=== PATIENT | male | born 1940 | race Caucasian/White ===

== ENCOUNTER 2018-04-19 10:30 | Outpatient (RCR) | payer MEDICARE, OTHER, SELFPAY ==
--- NOTE | 2018-03-22 10:48 | PTTR_ITS ---
DATE: 03/22/18 SUBJECTIVE: Cecilio states that he had an incident a few days ago where he squatted down to push brush out of the road in front of him, and fell forward onto his hands and knees. He states that he had a difficult time getting back up into a standing position, but was able to eventually do so, which he feels is a great improvement compared to several months ago when he first started PT. OBJECTIVE: Manual therapy: ([id number]). With patient in supine, performed patellar glides, superiorly and medially, with noted restriction. Also briefly mobilized knee into extension. Performed hamstring and ITB stretching to R LE, and traction via leg pulls. Patient then performed side-lying hip extension, side-lying knee flexion, and side-lying hip abduction, 2x10 for each, with manual cuing to facilitate appropriate muscle recruitment. Therapeutic procedures ([id number]). * [X] See flow sheet: Patient then completed a LE strengthening and general conditioning program, as per flow sheet. Patient tolerated a progression in his program today. Modifications made to reps and weights are noted on flow sheet. Vitals were taken and recorded on flow sheet. * [X] Provided skilled manual cues to facilitate proper muscle recruitment and/or movement pattern * [X] Other: Patient ended with UBE cycling and stationary biking x10 minutes, each, via [facility]ness Program. Direct treatment time: 60 minutes Total treatment time: 80 minutes
--- NOTE | 2018-03-26 14:31 | PTTR_ITS ---
DATE: 03/26/18 SUBJECTIVE: I am doing okay and slowly improving I believe. OBJECTIVE: A KX modifier is applied to the charge. Manual therapy: ([id number]): Patient was placed in supine and mobilized with gentle oscillations of long axis traction and then guided through over pressure into knee extension. He was mobilized through the patella with medial and superior glides and then stretched through the hamstrings with active isolated stretching technique. Patient mobilized with stretch of the knee into flexion with use of subtle anterior glide of the tibia on a fixed femur. He was mobilized while in the sidelying position with knee flexion coordinated with hip extension. Patient then seen by Adelaide Alaniz PTA for additional exercises for strength and endurance see her note for details. 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 Direct treatment time: 25 minutes of direct patient care.
--- NOTE | 2018-03-26 14:57 | PTTR_ITS ---
DATE: 03/26/18 OBJECTIVE: Co Treatment with PT Kalin Tucker Therapeutic procedures ([id number]). KX Mod * X Provided skilled instruction in proper exercise performance: Pt completed UE strengthening, scapular stabilization ther ex, LE strengthening, wobble board, functional sit to stands with the maroon t-band, and cardio as per flow sheet. Pt's vitals were taken please see flow sheet for specifics. Direct treatment time: 30 Total treatment time: 45
--- NOTE | 2018-03-29 12:48 | PTTR_ITS ---
DATE: 03/29/18 SUBJECTIVE: Pt states that he is still noticing some slight improvement week to week with both his endurance and his knee. OBJECTIVE: KX modifier applied to todays charge Manual therapy: ([id number]).Pt placed in the supine position receiving long axis traction through the RLE. He is then placed in 20-30 degrees of knee flexion while gently receiving isolated traction through the R knee and a mild anterior tibial draw. Pt mobilized with STM through the distal quad and patellar medial and superior glides. He is stretched through the hamstrings with active isolated stretching technique and lightly mobilized in the side lying position with hip extension coordinated with knee flexion, which pt tolerated fairly well. He is then seen by Jaki Moran PTA for additional strengthening exercises. See her note for details. Skilled PT services are still required for this pt to address his functional deficits through the knee, as well as endurance issues that are preventing him from returning to premorbid ability with normalized ADLs. Direct treatment time: 30 min Total treatment time: 30 min KX applied to all charges SAHARA/fw
--- NOTE | 2018-03-29 15:15 | PTTR_ITS ---
DATE: 03/29/18 SUBJECTIVE: This was a co tx with primary therapist Kalin Tucker DPT please see his note for specifics. OBJECTIVE: KX modifier applied to all charges. Therapeutic procedures ([id number]). Pt completed a therapeutic exercise program for LE strengthening and conditioning per flow sheet. Pt was able to tolerate a slight progression in his program today. Modifications made to repetitions and weights are noted on flow sheet. Pt continues to require skilled cueing for postural correction as well as to avoid compensatory movement patterns. Vital signs were taken and recorded on the flow sheet. Pt completes the remainder of his exercise program via wellness program under vocational trainer supervision. Direct treatment time: 30 minutes Total treatment time: 50 minutes
--- NOTE | 2018-04-02 08:28 | PTTR_ITS ---
DATE: 04/02/18 SUBJECTIVE: Pt states that he is still noticing some continuous improvement. OBJECTIVE: Manual therapy: ([id number]). KX modifier applied to all charges. Pt placed in the supine position where he is mobilized with long axis traction through the (R) LE and he is mobilized into TKE after tibial femoral decompression was completed through the traction maneuver. Patella, superior and medial glides are performed and then pt mobilized with hamstring stretching via active isolated stretching technique and in the sidelying position mobilized with hip extension coordinated with knee flexion to mobilize the deep hip flexor and rectus femoris. He is then positioned back into supine and placed into 20-30* of knee flexion, Mobilized with IASTM technique to the lateral tibio femoral joint and patellar tendon as well the lateral patella femoral joint. He tolerates tx well. He is then seen by Jaki Moran PTA for additional strengthening exercises see her note for details. Skilled PT services are still required for this pt to address his functional limitations due to strength and cardiovascular deficits. He is also limited by knee ROM deficits of the knee and this being post op TKR at this time. Direct treatment time: 30 minutes Total treatment time: 30 minutes
--- NOTE | 2018-04-05 11:13 | PTTR_ITS ---
DATE: 04/05/18 SUBJECTIVE: I am doing pretty well for the most part, still hopefully making some improvement. OBJECTIVE: KX applied to all codes X Manual therapy: ([id number]): Patient was placed in supine where he received long axis traction through the right lower extremity. He was stretched through the upper and lower portions of the hamstrings with active isolated stretching technique. Patellar medial and superior glides were performed with good tolerance and patient mobilized through the lateral retinaculum and LCL of the right knee with light cross grain massage. Patient placed in sidelying where he was mobilized with hip extension coordinated with knee flexion for stretch of the quadriceps. He is then guided through extension of the knee with over pressure and good tolerance. Then seen by SL DOOR CORE ASSEMBLER for additional strengthening exercises see her note for details. Skilled physical therapy services are still medically required in order to achieve patients premorbid and beyond functional mobility by addressing his knee mobility issues, and cardiovascular endurance and strength deficits. Direct treatment time: 30 minutes of direct patient care.
--- NOTE | 2018-04-05 11:56 | PTTR_ITS ---
DATE: 04/05/18 OBJECTIVE: Co-treatment with primary therapist, Kalin Tucker DPT. Please see his note for specifics. Therapeutic procedures ([id number]). * [X] See flow sheet: Patient completed a general conditioning and global strengthening program, as per flow sheet. Patient tolerated a slight progression in his program today, modifications made to reps are noted on flow sheet. Vitals taken and recorded on flow sheet. * [X] Provided skilled manual cues to facilitate proper muscle recruitment and/or movement pattern * [X] Other: Patient ends with UBE cycling and stationary biking via Wellness program. Direct treatment time: 30 minutes Total treatment time: 50 minutes
--- NOTE | 2018-04-11 11:24 | PTTR_ITS ---
DATE: 04/11/18 SUBJECTIVE: Cecilio continues to express frustration in how slow he feels his progress is toward regaining strength and stamina. [X] KX modifier applied to all charges. OBJECTIVE: Manual therapy: ([id number]). With patient in supine, perform traction via leg- pulls followed by patellar mobs in all planes. The perform prolonged hamstring stretching in supine, and prolonged quad stretching left side-lying. Therapeutic procedures ([id number]). * [] See flow sheet: Patient completed a LE strengthening and general conditioning program, as per flow sheet. Modified several exercises to challenge right knee stability and LE strength, which was tolerated with some muscle fatigue. Please see flow sheet for modifications made. Vitals were taken and recorded on flow sheet pre and post exercise. Patient ended with UBE cycling and stationary biking x10 minutes each, via [facility]. * [] Provided skilled instruction in proper exercise performance. * [] Provided skilled manual cues to facilitate proper muscle recruitment and /or movement pattern. Direct treatment time: 45 minutes Total treatment time: 65 minutes
--- NOTE | 2018-04-13 13:06 | PTTR_ITS ---
DATE: 04/13/18 OBJECTIVE: Co-treatment with primary therapist, Kalin Tucker DPT. Please see his note for specifics. KX applied to all codes [X] Therapeutic procedures ([id number]). * [X] See flow sheet: Patient completed a LE strengthening and general conditioning program, as per flow sheet. Added SLS dynamic balance exercise today, with good tolerance. Patient tolerated a slight progression in his program today, modifications made are noted on flow sheet. Vitals taken and recorded on flow sheet. Patient ends with UBE cycling and stationary biking via [facility]. * [X] Provided skilled instruction in proper exercise performance. * [X] Provided skilled manual cues to facilitate proper muscle recruitment and/or movement pattern. Direct treatment time: 35 minutes Total treatment time: 50 minutes
--- NOTE | 2018-04-13 13:17 | PTTR_ITS ---
DATE: 04/13/18 SUBJECTIVE: I am doing pretty well for the most part. OBJECTIVE: A KX modifier is applied to the charge. Manual therapy: ([id number]): Patient was placed in supine and mobilized with gentle traction via long axis through the right lower extremity. After decompression he was mobilized with end of range knee extension with tolerable end point limit. The patella was mobilized with medial and superior glides to improve lateral retinaculum extensibility and trochlear tracking. The hamstrings are still significantly limiting in extensibility but he is able to tolerate a stretch with knee extended to 45 degrees of hip flexion. The proximal hamstrings were mobilized with good tolerance and in sidelying he is mobilized with hip extension coordinated with knee flexion. Patient then seen by SL WAREHOUSE UNLOADER for additional exercises see note for details. Skilled Physical therapy services are still required to address his functional mobility deficits through the knee and with his cardio vascular endurance that are limiting a return to even baseline ability. He is making gradual progress with continued effort. Direct treatment time: 30 minutes of direct patient care.
--- NOTE | 2018-04-16 11:09 | PTTR_ITS ---
DATE: 04/16/18 OBJECTIVE: This was a co tx with PT Kalin Tucker please refer to his note for specifics. KX modifier applied to all charges. Therapeutic procedures ([id number]). Pt was seen by me for completion of a therapeutic exercise program consisting of UE strengthening, scapular stabilization also working on balance, light proprioceptive activities, SLS activities and cardiovascular exercise on the UBE and treadmill and Nustep. Pt' s vitals were taken with the wellness as well as the treadmill and bicycle. Direct treatment time: 30 minutes Total treatment time: 30 minutes
--- NOTE | 2018-04-16 11:57 | PTTR_ITS ---
DATE: 04/16/18 SUBJECTIVE: Pt states that he is doing ok for the most part. Still making gradual improvement. OBJECTIVE: Manual therapy: ([id number]).KX modifier applied to all charges. Pt placed in the supine position and gently mobilized with long axis traction through the LE. He is then mobilized with extension through the knee to end range with oscillations, and then patellar medial and superior glides to improve tracking in the lateral retinaculum extensibility. Pt then mobilized through the hamstrings with active isolated stretching technique and through the rectus femoris with low load long duration holds. He is mobilized into end range flexion and light STM through the proximal and distal quadricep. Skilled PT services are still required for this pt in order to address his primary deficits of strength and endurance and mobility concerns leading to decreased functional ambulation quality. Pt was then seen by Adelaide Alaniz PTA for additional strengthening exercises.See her note for details. Direct treatment time: 30 min Total treatment time: 30 min SAHARA/anselmo
--- NOTE | 2018-04-19 07:47 | PTTR_ITS ---
DATE: 04/19/18 SUBJECTIVE: Pt states that he is noticing some improvement from time to time; however, in the last couple days he hasn't really made that pure of an assessment because he has not been able to get out due to the weather. OBJECTIVE: Manual therapy: ([id number]).Pt placed in the supine position receiving gentle traction with long axis through the RLE, progressing to further decompression. He is then mobilized with knee extension and patellar, medial and superior glides. Pt mobilized through the hamstring, both proximal and distal fibers with low load long duration holds. In the side lying position mobilized with hip extension coordinated with knee flexion and pt also mobilized with end range knee flexion within his level of tolerance associated with a mild anterior glide of the tibia. He is then seen by Jaki Moran PTA for additional strengthening activities. See her note for details. Skilled therapy services are still medically required for this pt to address his strength, stability and pain concerns resulting from TKR and termination clerk hospital admission earlier on in his recovery. He still has some endurance and mobility concern that are gradually improving through continued treatment. Direct treatment time: 30 min Total treatment time: 30 min SAHARA/anselmo
--- NOTE | 2018-04-19 11:56 | PTTR_ITS ---
DATE: 04/19/18 OBJECTIVE: Co-treatment with primary therapist, Kalin Tucker DPT. Please see his note for specifics. [X] KX modifier applied to all charges. Therapeutic procedures ([id number]). * [X] See flow sheet: Patient completed a general conditioning and global strengthening program, as per flow sheet. Patient was able to tolerate a progression in his program today, including increased difficulty with proprioceptive balance activities. Modifications made to program are noted on flow sheet. Vitals were taken pre and post-exercise and recorded on flow sheet. Patient completed the remainder of his ther ex program via [facility]. * [X] Provided skilled manual cues to facilitate proper muscle recruitment and/or movement pattern. Direct treatment time: 35 minutes Total treatment time: 55 minutes
== END 2018-04-20 23:59 | disposition home or self-care (01) ==
LOC: PT 10:30
PROVIDERS: PCP Internal Medicine; Referring Provider Physician Assistant Medical; Visit Provider Physician Assistant Medical
DX: Z47.1 Aftercare following joint replacement surgery (principal); Z96.651 Presence of right artificial knee joint
CPT/HCPCS: 97110; 97140

== ENCOUNTER → 2018-06-29 10:11 | Outpatient (BNVA) | payer MEDICARE, SELFPAY | PROVIDERS: PCP Family Medicine; Visit Provider Internal Medicine Cardiovascular Disease | DX: I48.0 Paroxysmal atrial fibrillation (principal); I50.30 Unspecified diastolic (congestive) heart failure; I11.0 Hypertensive heart disease with heart failure; Z95.2 Presence of prosthetic heart valve; E78.5 Hyperlipidemia, unspecified; I35.0 Nonrheumatic aortic (valve) stenosis | CPT/HCPCS: 99214 ==

== ENCOUNTER 2018-08-14 12:36 | Emergency (ER) | payer MEDICARE, OTHER, SELFPAY ==
[2018-08-14 12:39] VITALS: BP 144/70; PULSE 72; RESP 16; TEMP 36.6; O2SAT 95
--- NOTE | 2018-08-14 13:05 | W.ED.GENAD ---
Discharge Plan Disposition Patient Disposition: HOME Condition: Stable Discharge Details Chief Complaint: EyeProblem Clinical Impression: Blurred vision, left eye Primary Care Provider: Robert Baltazar ED Provider: Berry Rios Home Meds and New Rx's Prescriptions: Continued amoxicillin 500 mg tablet 1,000 mg PO ONCE PRNRF: 0 metoprolol succinate 100 mg tablet extended release 24 hr 100 mg PO DAILY 60 Days Qty: 60 RF: 6 multivitamin [One Daily] 1 EACH tablet 2 ea PO DAILY RF: 0 aspirin [Aspir-81] 81 MG tablet,delayed release (DR/EC) 81 mg PO DAILY RF: 0 ascorbic acid (vitamin C) 500 MG tablet 2 tab PO DAILY RF: 0 Eliquis 5 MG tablet 5 mg PO BID Qty: 180 RF: 3 diltiazem HCl 360 MG capsule,extended release 24 hr 360 mg PO DAILY Qty: 90 RF: 3 atorvastatin 40 MG tablet 40 mg PO HS Qty: 90 RF: 3 torsemide [Demadex] 20 MG tablet 20 mg PO ONCE 30 Days Qty: 60 RF: 5 tamsulosin 0.4 mg capsule 0.8 mg PO DAILY 90 Days Qty: 180 RF: 3 spironolactone [Aldactone] 25 mg tablet 25 mg PO BID RF: 0 Discharge Instructions Additional Instructions: Based on your exam there is no evidence of retinal detachment at this time. I discussed with your correctional program specialist office who is going to reach out to you tomorrow for an appointment to bee seen as soon as possible if you have worsening vision changes, weakness or severe pain return to the emergency department Medical Decision Making 78 yo male with hx of afib on eliquis comes in with chief complaint of haziness and graying of the lower half of the left eye. Denies pain, fevers, chills. 20/25 vision in both eyes on my exam and denies any pain. EOMI with no periorbital swelling, normal conjunctiva. Has no iritis on exam and on bedside u/s sseems to have vitreous hemorrhage, no evidence of retinal attachment on exam or CRAO or CRVO on retinal exam. Will consult with opthamology he sees across from the street spoke with Dr. Yuen from optometry who is going to arrange for f/u appt tomorrow. Pt advised to call their office if any issues and he will be contacted by his correctional program specialist. Differential Diagnosis retinal detachment, vitreous hemorrhage, floaters HPI General Mode of arrival: ambulatory. Date/Time Provider Initiated Documentation: 08/14/18 12:36. Limitations to Documentation: no limitations. Information obtained by: patient. History of Present Illness 78 year old M presents to the emergency department with the chief complaint of left eye burring, described as moderate, and is localized to the eyes. Patient reports no radiation. Patient started experiencing this hour(s) (2) and it has been constant. No relieving factors improve symptom(s), No exacerbating factors reported . Patient notes no other symptoms.. Related Data Home Medications Medication Instructions Recorded Confirmed ascorbic acid (vitamin C) 2 tab PO DAILY 11/26/12 08/14/18 aspirin [Aspir-81] 81 mg PO DAILY tab 11/26/12 08/14/18 multivitamin [One Daily] 2 ea PO DAILY 11/26/12 08/14/18 Eliquis 5 mg PO BID #180 tab 11/16/17 08/14/18 diltiazem HCl 360 mg PO DAILY #90 tab-cap 11/16/17 08/14/18 atorvastatin 40 mg PO HS #90 tab 11/27/17 08/14/18 torsemide [Demadex] 20 mg PO ONCE 30 Days #60 tab 12/25/17 08/14/18 tamsulosin 0.4 mg capsule 0.8 mg PO DAILY 90 Days #180 05/21/18 08/14/18 tab-cap amoxicillin 500 mg tablet 1,000 mg PO ONCE PRN tab 06/29/18 08/14/18 metoprolol succinate ER 100 mg 100 mg PO DAILY 60 Days #60 tab-cap 06/29/18 08/14/18 tablet,extended release 24 hr spironolactone 25 mg tablet 25 mg PO BID 08/03/18 08/14/18 Previous Rx's Medication Instructions Recorded diltiazem HCl 360 mg PO DAILY #90 tab-cap 11/16/17 atorvastatin 40 mg PO HS #90 tab 11/27/17 torsemide [Demadex] 20 mg PO ONCE 30 Days #60 tab 12/25/17 tamsulosin 0.4 mg capsule 0.8 mg PO DAILY 90 Days #180 05/21/18 tab-cap metoprolol succinate ER 100 mg 100 mg PO DAILY 60 Days #60 tab-cap 06/29/18 tablet,extended release 24 hr Allergies Allergy/AdvReac Type Severity Reaction Status Date / Time No Known Allergies Allergy Unverified 08/14/18 12:44 General Stated Complaint: EyeProblem JANINE: 3 Review of Systems Review of Systems All systems reviewed & are unremarkable except as noted in HPI and below Constitutional Denies chills, Denies fever(s) and Denies weakness ENT Denies change in voice Cardiovascular Denies chest pain and Denies dyspnea Respiratory Denies dyspnea Gastrointestinal Denies abdominal pain, Denies nausea and Denies vomiting Genitourinary Denies dysuria Musculoskeletal Denies joint swelling Integumentary/Breasts Denies rash Neurologic Denies weakness Psychiatric Denies depression Endocrine Denies cold intolerance and Denies heat intolerance Allergic/Immunologic Denies urticaria [facility] Surgical History Extraction of cataract (07/28/14) 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) cervical diskectomy (07/01/15) Social History Smoking/Tobacco Use Status: Never Exam Const General: no acute distress Orientation: alert HENMT Head: normal to inspection Ears: external ears normal General nose exam: external nose normal Mouth: moist mucous membranes Eyes General: appearance normal, both eyes and all related structures Neck Neck: normal visual inspection Resp Effort & Inspection: normal respiratory effort and able to speak in complete sentences Cardio Rate: regular rate Skin General skin exam: no rashes or lesions noted Neuro General: alert and oriented x3 Extrem General: normal to inspection Psych Mental Status: mental status grossly normal Course Vital Signs Temperature 36.6 C 08/14/18 12:39 Pulse 72 08/14/18 12:39 Respiratory Rate 16 08/14/18 12:39 Blood Pressure 144/70 H 08/14/18 12:39 Pulse Oximetry 95 08/14/18 12:39 Temperature 36.6 C 08/14/18 12:39 Temperature Source Skin 08/14/18 12:39 Pulse 72 08/14/18 12:39 Respiratory Rate 16 08/14/18 12:39 Respiratory Effort Non-Labored 08/14/18 12:42 Blood Pressure 144/70 H 08/14/18 12:39 Pulse Oximetry 95 08/14/18 12:39 Pain Level 0 08/14/18 12:39
--- NOTE | 2018-08-14 13:10 | ED.GENADUL_ITS ---
Discharge Plan Disposition Patient Disposition: HOME Condition: Stable Discharge Details Chief Complaint: EyeProblem Clinical Impression: Blurred vision, left eye Primary Care Provider: Robert Baltazar ED Provider: Berry Rios Home Meds and New Rx's Prescriptions: Continued amoxicillin 500 mg tablet 1,000 mg PO ONCE PRNRF: 0 metoprolol succinate 100 mg tablet extended release 24 hr 100 mg PO DAILY 60 Days Qty: 60 RF: 6 multivitamin [One Daily] 1 EACH tablet 2 ea PO DAILY RF: 0 aspirin [Aspir-81] 81 MG tablet,delayed release (DR/EC) 81 mg PO DAILY RF: 0 ascorbic acid (vitamin C) 500 MG tablet 2 tab PO DAILY RF: 0 Eliquis 5 MG tablet 5 mg PO BID Qty: 180 RF: 3 diltiazem HCl 360 MG capsule,extended release 24 hr 360 mg PO DAILY Qty: 90 RF: 3 atorvastatin 40 MG tablet 40 mg PO HS Qty: 90 RF: 3 torsemide [Demadex] 20 MG tablet 20 mg PO ONCE 30 Days Qty: 60 RF: 5 tamsulosin 0.4 mg capsule 0.8 mg PO DAILY 90 Days Qty: 180 RF: 3 spironolactone [Aldactone] 25 mg tablet 25 mg PO BID RF: 0 Discharge Instructions Additional Instructions: Based on your exam there is no evidence of retinal detachment at this time. I discussed with your field applications specialist office who is going to reach out to you tomorrow for an appointment to bee seen as soon as possible if you have worsening vision changes, weakness or severe pain return to the emergency department Medical Decision Making 78 yo male with hx of afib on eliquis comes in with chief complaint of haziness and graying of the lower half of the left eye. Denies pain, fevers, chills. 20/25 vision in both eyes on my exam and denies any pain. EOMI with no periorbital swelling, normal conjunctiva. Has no iritis on exam and on bedside u/s sseems to have vitreous hemorrhage, no evidence of retinal attachment on exam or CRAO or CRVO on retinal exam. Will consult with opthamology he sees across from the street spoke with Dr. Yuen from optometry who is going to arrange for f/u appt tomorrow. Pt advised to call their office if any issues and he will be contacted by his field applications specialist. Differential Diagnosis retinal detachment, vitreous hemorrhage, floaters HPI General Mode of arrival: ambulatory . Date/Time Provider Initiated Documentation: 08/14/18 12:36 . Limitations to Documentation: no limitations . Information obtained by: patient . History of Present Illness 78 year old M presents to the emergency department with the chief complaint of left eye burring, described as moderate, and is localized to the eyes. Patient reports no radiation. Patient started experiencing this hour(s) (2) and it has been constant. No relieving factors improve symptom(s), No exacerbating factors reported . Patient notes no other symptoms.. Related Data Home Medications Medication Instructions Recorded Confirmed ascorbic acid (vitamin C) 2 tab PO DAILY 11/26/12 08/14/18 aspirin [Aspir-81] 81 mg PO DAILY tab 11/26/12 08/14/18 multivitamin [One Daily] 2 ea PO DAILY 11/26/12 08/14/18 Eliquis 5 mg PO BID #180 tab 11/16/17 08/14/18 diltiazem HCl 360 mg PO DAILY #90 tab-cap 11/16/17 08/14/18 atorvastatin 40 mg PO HS #90 tab 11/27/17 08/14/18 torsemide [Demadex] 20 mg PO ONCE 30 Days #60 tab 12/25/17 08/14/18 tamsulosin 0.4 mg capsule 0.8 mg PO DAILY 90 Days #180 05/21/18 08/14/18 tab-cap amoxicillin 500 mg tablet 1,000 mg PO ONCE PRN tab 06/29/18 08/14/18 metoprolol succinate ER 100 mg 100 mg PO DAILY 60 Days #60 tab-cap 06/29/18 08/14/18 tablet,extended release 24 hr spironolactone 25 mg tablet 25 mg PO BID 08/03/18 08/14/18 Previous Rx's Medication Instructions Recorded diltiazem HCl 360 mg PO DAILY #90 tab-cap 11/16/17 atorvastatin 40 mg PO HS #90 tab 11/27/17 torsemide [Demadex] 20 mg PO ONCE 30 Days #60 tab 12/25/17 tamsulosin 0.4 mg capsule 0.8 mg PO DAILY 90 Days #180 05/21/18 tab-cap metoprolol succinate ER 100 mg 100 mg PO DAILY 60 Days #60 tab-cap 06/29/18 tablet,extended release 24 hr Allergies Allergy/AdvReac Type Severity Reaction Status Date / Time No Known Allergies Allergy Unverified 08/14/18 12:44 General Stated Complaint: EyeProblem JANINE: 3 Review of Systems Review of Systems All systems reviewed & are unremarkable except as noted in HPI and below Constitutional Denies chills, Denies fever(s) and Denies weakness ENT Denies change in voice Cardiovascular Denies chest pain and Denies dyspnea Respiratory Denies dyspnea Gastrointestinal Denies abdominal pain, Denies nausea and Denies vomiting Genitourinary Denies dysuria Musculoskeletal Denies joint swelling Integumentary/Breasts Denies rash Neurologic Denies weakness Psychiatric Denies depression Endocrine Denies cold intolerance and Denies heat intolerance Allergic/Immunologic Denies urticaria [facility] Surgical History Extraction of cataract (07/28/14) 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) cervical diskectomy (07/01/15) Social History Smoking/Tobacco Use Status: Never Exam Const General: no acute distress Orientation: alert HENMT Head: normal to inspection Ears: external ears normal General nose exam: external nose normal Mouth: moist mucous membranes Eyes General: appearance normal, both eyes and all related structures Neck Neck: normal visual inspection Resp Effort & Inspection: normal respiratory effort and able to speak in complete sentences Cardio Rate: regular rate Skin General skin exam: no rashes or lesions noted Neuro General: alert and oriented x3 Extrem General: normal to inspection Psych Mental Status: mental status grossly normal Course Vital Signs Temperature 36.6 C 08/14/18 12:39 Pulse 72 08/14/18 12:39 Respiratory Rate 16 08/14/18 12:39 Blood Pressure 144/70 H 08/14/18 12:39 Pulse Oximetry 95 08/14/18 12:39 Temperature 36.6 C 08/14/18 12:39 Temperature Source Skin 08/14/18 12:39 Pulse 72 08/14/18 12:39 Respiratory Rate 16 08/14/18 12:39 Respiratory Effort Non-Labored 08/14/18 12:42 Blood Pressure 144/70 H 08/14/18 12:39 Pulse Oximetry 95 08/14/18 12:39 Pain Level 0 08/14/18 12:39
[2018-08-14 13:40] VITALS: BP 131/78; PULSE 69; RESP 16; TEMP 36.4; O2SAT 96
== END 2018-08-14 13:38 | disposition home or self-care (01) ==
PROVIDERS: Emergency Provider Emergency Medicine; PCP Family Medicine
DX: H53.8 Other visual disturbances (principal)
CPT/HCPCS: 99282

== ENCOUNTER 2018-08-29 00:27 | Outpatient (CLI) | payer MEDICARE, OTHER, SELFPAY ==
--- NOTE | 2018-08-29 11:14 | DI.US_ITS ---
SYMPTOM/DIAGNOSIS: LOOKING FOR SOURCE OF EMBOLI, RETINAL ARTERY BRANCH OCCLUSION, H34.232, LOSS OF LT EYE VISION, HYPERTENSION, DIZZINESS CAROTID ULTRASOUND: Routine examination was performed. On the right, moderate calcific plaque is seen in the right carotid bulb and proximal and mid internal carotid arteries and the proximal external carotid artery. Velocity elevations are seen consistent with a 50-60% internal carotid stenosis. The right vertebral artery is antegrade. On the left, there is calcific plaque seen in the carotid bulb and internal carotid artery including a large area of calcific plaque in the mid to distal left internal carotid artery. There is elevation of velocity within the ICA consistent with 50-60% internal carotid artery stenosis. The left vertebral artery is antegrade. IMPRESSION: Moderate calcific plaque in the cervical carotid arteries. 50-60% bilateral internal carotid artery stenosis.
== END 2018-08-29 00:47 ==
PROVIDERS: PCP Family Medicine; Visit Provider Family Medicine
DX: H34.232 Retinal artery branch occlusion, left eye (principal); H54.62 Unqualified visual loss, left eye, normal vision right eye; I10 Essential (primary) hypertension; R42 Dizziness and giddiness; I65.23 Occlusion and stenosis of bilateral carotid arteries
CPT/HCPCS: 93880

== ENCOUNTER 2018-10-09 00:02 | Outpatient (CLI) | payer MEDICARE, OTHER, SELFPAY ==
--- NOTE | 2018-10-09 10:30 | MERGE_ITS ---
*[facility]* *[facility]* [address] [place] [address] Date of study: 10/09/2018 Transthoracic Echocardiography M-mode, complete 2D, complete spectral Doppler, and color Doppler *STUDY CONCLUSIONS* Summary: 1. Left ventricle: The cavity size was normal. Systolic function was normal. The estimated ejection fraction was 60-65%. Findings consistent with diastolic dysfunction. Doppler parameters are consistent with high ventricular filling pressure. 2. Aortic valve: A bioprosthesis was present and functioning normally. Peak velocity (S): 2.2m/sec. AT 65 ms. VTI ratio of LVOT to aortic valve: 0.54. No PVL. 3. Mitral valve: Moderately calcified annulus. There was mild to moderate regurgitation. 4. Left atrium: The atrium was mildly dilated. 5. Right ventricle: The cavity size was normal. Wall thickness was normal. Systolic function was normal. 6. Right atrium: The atrium was mildly dilated. 7. Atrial septum: No defect or patent foramen ovale was identified. 8. Pulmonary arteries: Pulmonary systolic pressure was in the range of 30mm Hg to 40mm Hg. 9. Inferior vena cava: The vessel was patent and normal in size. The respirophasic diameter changes were in the normal range (greater than or equal to 50%), consistent with normal central venous pressure. *PATIENT PRESENTATION* Height: 182.9cm ((72in) ) S/D Pressure: 122 / 61 Weight: 93kg ((204.6lb) ) BSA: 2.19m^2 Test start time: 10:40 AM. Test stop time: 11:40 AM. PERFORMING Unknown ORDERING Jaky Cordova REFERRING Jaky Cordova PERFORMING [facility] REPAIR MILLER RT Tash Omer)(TOSHA), [facility] CONSULTING Robert Baltazar *PROCEDURE DATA* Procedure information: The patient was identified by two identifiers. This study was interpreted by [facility]. Pertinent images and digital data are archived for permanent storage and are available for subsequent review. No prior study was available for comparison. Study status: Routine. Transthoracic echocardiography. M-mode, complete 2D, complete spectral Doppler, and color Doppler. A Transthoracic Echocardiogram was performed. Scanning was performed from the parasternal, apical, subcostal, and suprasternal notch acoustic windows. Images were obtained using an [id number] cardiac ultrasound machine. Image quality was adequate. Study completion: The patient tolerated the procedure well. History: PMH: AVR HTN, AFIB, diastolic HF. I 48.9, i10, z95.2, i20.30. *CARDIAC ANATOMY* Left ventricle: The cavity size was normal. Systolic function was normal. The estimated ejection fraction was 60-65%. The tissue Doppler parameters were abnormal. Findings consistent with diastolic dysfunction. Doppler parameters are consistent with high ventricular filling pressure. Aortic valve: A bioprosthesis was present and functioning normally. Doppler: There was no significant regurgitation. VTI ratio of LVOT to aortic valve: 0.54. Valve area (VTI): 1.8cm^2. Indexed valve area (VTI): 0.8cm^2/m^2. Peak velocity ratio of LVOT to aortic valve: 0.48. Valve area (Vmax): 1.6cm^2. Indexed valve area (Vmax): 0.7cm^2/m^2. Mean velocity ratio of LVOT to aortic valve: 0.49. Valve area (Vmean): 1.7cm^2. Indexed valve area (Vmean): 0.8cm^2/m^2. Mean gradient (S): 12.1mm Hg. Peak gradient (S): 20.1mm Hg. Aorta: Aortic root: The aortic root was normal in size. Ascending aorta: The ascending aorta was normal in size. Mitral valve: Moderately calcified annulus. Doppler: There was no evidence for stenosis. There was mild to moderate regurgitation. Valve area by pressure half-time: 1.7cm^2. Indexed valve area by pressure half-time: 0.8cm^2/m^2. Peak gradient (D): 4.9mm Hg. Left atrium: The atrium was mildly dilated. Atrial septum: No defect or patent foramen ovale was identified. Right ventricle: The cavity size was normal. Wall thickness was normal. Systolic function was normal. Pulmonic valve: Doppler: There was no evidence for stenosis. There was no significant regurgitation. Peak gradient (S): 4mm Hg. Tricuspid valve: Doppler: There was mild regurgitation. Pulmonary artery: Poorly visualized. Pulmonary systolic pressure was in the range of 30mm Hg to 40mm Hg. Right atrium: The atrium was mildly dilated. Pericardium: There was no pericardial effusion. Systemic veins: Inferior vena cava: Well visualized. The vessel was patent and normal in size. The respirophasic diameter changes were in the normal range (greater than or equal to 50%), consistent with normal central venous pressure. Baseline ECG: Normal sinus rhythm. Measurements Left ventricle Value Reference LV ID, ED, PLAX 5.4 cm 3.5 - 6.0 LV ID, ES, PLAX 3.5 cm 2.1 - 4.0 LV PW thickness, ED, PLAX 1.0 cm LV end-diastolic volume, 1-p A2C 90 ml LV ejection fraction, 1-p A2C 65 % LV end-diastolic volume, 1-p A4C 87 ml LV ejection fraction, 1-p A4C 60 % LV e', lateral 0.055 m/sec LV E/e', lateral 20 LV e', medial 0.069 m/sec LV E/e', medial 16 LV e', average 0.062 m/sec LV E/e', average 18 Ventricular septum Value Reference IVS thickness, ED, PLAX 0.9 cm LVOT Value Reference LVOT ID, A-P 2.1 cm LVOT area 3.4 cm^2 LVOT peak velocity, S 1.07 m/sec LVOT mean velocity, S 0.81 m/sec LVOT VTI, S 26.9 cm LVOT peak gradient, S 4.6 mm Hg LVOT mean gradient, S 2.9 mm Hg Stroke volume (SV), LVOT DP 90 ml Stroke index (SV/bsa), LVOT DP 41 ml/m^2 Aortic valve Value Reference Aortic valve peak velocity, S 2.2 m/sec Aortic valve mean velocity, S 1.65 m/sec Aortic valve VTI, S 50.0 cm Aortic mean gradient, S 12.1 mm Hg Aortic peak gradient, S 20.1 mm Hg VTI ratio, LVOT/AV 0.54 Aortic valve area, VTI 1.8 cm^2 Velocity ratio, peak, LVOT/AV 0.48 Aortic valve area, peak velocity 1.6 cm^2 Velocity ratio, mean, LVOT/AV 0.49 Aortic valve area, mean velocity 1.7 cm^2 Aortic valve area/bsa, mean velocity 0.8 cm^2/m^2 Aorta Value Reference Ascending aorta ID, A-P, S 3.4 cm Left atrium Value Reference LA ID, A-P, ES 5.0 cm LA ID/bsa, A-P (H) 2.3 cm/m^2 <=2.2 LA area, ES, A4C (H) 26 cm^2 8.8 - 23.4 LA area, ES, A2C 23 cm^2 LA volume, ES, 2-p 86 ml LA volume/bsa, ES, 2-p 39 ml/m^2 Mitral valve Value Reference Mitral E-wave peak velocity 1.11 m/sec Mitral A-wave peak velocity 1.28 m/sec Mitral deceleration time (H) 453 ms 150 - 230 Mitral pressure half-time 131 ms Mitral peak gradient, D 4.9 mm Hg Mitral E/A ratio, peak 0.87 Mitral valve area, PHT, DP 1.7 cm^2 Tricuspid valve Value Reference Tricuspid regurg peak velocity 2.9 m/sec Tricuspid peak RV-RA gradient 34.7 mm Hg Right atrium Value Reference RA area, ES, A4C (H) 19.7 cm^2 8.3 - 19.5 Pulmonic valve Value Reference Pulmonic peak gradient, S 4 mm Hg Legend: (L) and (H) merrill values outside specified reference range. I have personally reviewed the images and have reviewed and edited the reported findings. Electronically signed by Berry Davidson MD 10/09/2018 16:09
== END 2018-10-09 00:22 ==
PROVIDERS: PCP Family Medicine; Visit Provider Internal Medicine Cardiovascular Disease
DX: I48.91 Unspecified atrial fibrillation (principal); I50.30 Unspecified diastolic (congestive) heart failure; I34.0 Nonrheumatic mitral (valve) insufficiency; Z95.2 Presence of prosthetic heart valve; I10 Essential (primary) hypertension
CPT/HCPCS: 93306

== ENCOUNTER → 2018-11-16 13:15 | Outpatient (BNVA) | payer MEDICARE, OTHER, SELFPAY | PROVIDERS: PCP Family Medicine; Visit Provider Internal Medicine Cardiovascular Disease | DX: I48.0 Paroxysmal atrial fibrillation (principal); I50.30 Unspecified diastolic (congestive) heart failure; E78.5 Hyperlipidemia, unspecified; Z95.2 Presence of prosthetic heart valve; I13.0 Hypertensive heart and chronic kidney disease with heart failure and stage 1 through stage 4 chronic kidney disease, or unspecified chronic kidney disease; I73.9 Peripheral vascular disease, unspecified; N18.9 Chronic kidney disease, unspecified | CPT/HCPCS: 99214 ==

== ENCOUNTER 2019-04-10 13:20 | Outpatient (CLI) | payer MEDICARE, OTHER, SELFPAY ==
[2019-04-10 13:48] LABS: Abs Immature Grans 0.04 k/cumm (0.0-0.09); Absolute Basophil Count 0.03 k/cumm (0.0-0.2); Absolute Eosinophil Count 0.22 k/cumm (0.0-0.7); Absolute Lymphocyte Count 1.89 k/cumm (1.2-3.4); Absolute Monocyte Count 0.91 k/cumm (0.11-0.7); Absolute Neutrophil Count 5.59 k/cumm (1.2-6.7); Basophils % 0.3; Eosinophils % 2.5; HGB 13.6 g/dL (13.5-17.5); Immature Grans % 0.5; Lymphocytes % 21.8; Mean Corp. HGB Concentration 33.2 g/dL (32.0-36.0); Mean Corpuscular Hemoglobin 31.6 pg (27.0-33.0); Mean Corpuscular Volume 95.1 fL (80-95); Mean Platelet Volume 10.5 fL (8.0-11.0); Monocytes % 10.5; Neutrophils % 64.4; Platelet Count 239 x1000/uL (130-400); RBC 4.31 m/cumm (4.50-6.00); RBC Distribution Width 12.9 % (11.8-14.1); White Blood Cell Count 8.68 k/cumm (4.4-10.8)
[2019-04-10 14:24] LABS: BUN 22 mg/dL (7-18); CREATININE 1.21 mg/dL (0.70-1.30); Calcium 9.5 mg/dL (8.5-10.1); Chloride 102 mmol/L (98-107); Estimated GFR 57.85 (mL/min/1.73m2); Glucose 126 mg/dL (70-100); Potassium 4.4 mmol/L (3.5-5.1); Sodium 140 mmol/L (136-145)
== END 2019-04-10 13:40 ==
PROVIDERS: PCP Family Medicine; Visit Provider Family Medicine
DX: R53.83 Other fatigue (principal); I50.9 Heart failure, unspecified
CPT/HCPCS: 80048; 85025

== ENCOUNTER 2019-04-12 14:33 | Outpatient (REF) | payer MEDICARE, OTHER, SELFPAY ==
[2019-04-12 19:42] LABS: Vitamin B12 542 pg/mL (193-986)
[2019-04-12 19:47] LABS: Folate > 20.0 ng/mL (8.6-20.0)
[2019-04-12 19:48] LABS: Iron 113 ug/dL (50-175); Total Iron Binding Capacity 274 ug/dL (250-450); Transferrin Sat 41 % (20-55)
== END 2019-04-12 14:53 ==
LOC: LBN 14:33
PROVIDERS: PCP Family Medicine; Visit Provider Family Medicine
DX: R53.83 Other fatigue (principal); I50.30 Unspecified diastolic (congestive) heart failure
CPT/HCPCS: 82607; 82746; 83540; 83550; 84443

== ENCOUNTER 2019-05-10 12:10 | Outpatient (CLI) | payer MEDICARE, OTHER, SELFPAY | END 2019-05-10 12:30 | PROVIDERS: PCP Family Medicine; Visit Provider Internal Medicine Cardiovascular Disease | DX: I48.0 Paroxysmal atrial fibrillation (principal); I50.32 Chronic diastolic (congestive) heart failure; I12.9 Hypertensive chronic kidney disease with stage 1 through stage 4 chronic kidney disease, or unspecified chronic kidney disease; E78.2 Mixed hyperlipidemia; N18.9 Chronic kidney disease, unspecified | CPT/HCPCS: 99214; 93005; 93010 ==

== ENCOUNTER → 2019-08-22 11:06 | Outpatient (BNVA) | payer MEDICARE, OTHER, SELFPAY | PROVIDERS: PCP Family Medicine; Referring Provider Family Medicine; Visit Provider Internal Medicine Cardiovascular Disease | DX: R69 Illness, unspecified (principal) | CPT/HCPCS: 99205 ==

== ENCOUNTER 2019-08-22 12:35 | Outpatient (CLI) | payer MEDICARE, OTHER, SELFPAY ==
--- NOTE | 2019-09-12 08:23 | W.ZIOMONITOR ---
Date of service: 09/12/19 Time of Service: 08:23 ZIO Patch Bias Cutting Machine Operator Vertical Note: Is a 2-week ZIO patch ordered for the indication of atrial fibrillation. ?The patient was in normal sinus rhythm for the majority of the recording. ?Patient had multiple episodes of atrial fibrillation which accounted for 6% of total recordings (rate 43-143 bpm). The longest duration was 19 hours. ?On a number of occasions the patient has what appears to be a rate dependent bundle branch block during atrial fibrillation rather than ventricular tachycardia. ?There was one episode of supraventricular tachycardia that lasted 4 beats. ?There were rare supraventricular ectopic beats and rare isolated ventricular ectopic beats. ?There were no pauses greater than 3 seconds and no evidence of high degree heart block. ?Patient triggered events were associated with sinus rhythm and single ventricular ectopic beats.
== END 2019-08-22 12:55 ==
PROVIDERS: PCP Family Medicine; Visit Provider Internal Medicine Cardiovascular Disease
DX: I50.30 Unspecified diastolic (congestive) heart failure (principal); Z95.2 Presence of prosthetic heart valve; I48.0 Paroxysmal atrial fibrillation; I11.0 Hypertensive heart disease with heart failure
CPT/HCPCS: 0296T; 99205; 99214; 99215; 71046

== ENCOUNTER 2019-08-22 16:00 | Outpatient (CLI) | payer MEDICARE, OTHER, SELFPAY ==
--- NOTE | 2019-08-22 12:25 | DI.RAD_ITS ---
EXAM: XR CHEST 2V PA LATERAL CLINICAL HISTORY: diastolic heart failure I50.30 TECHNIQUE: COMPARISON: No exams were available for comparison FINDINGS: There is an aortic valve prosthesis. Cardiac size is within normal limits. Mild changes of pulmonar y scarring are noted. No focal infiltrate seen, pleural effusions and pulmonary infiltrates noted pr ior study of 11/30/2017 have resolved. IMPRESSION: No evidence of acute process.
== END 2019-08-22 16:20 ==
PROVIDERS: PCP Family Medicine; Visit Provider Internal Medicine Cardiovascular Disease
DX: I50.30 Unspecified diastolic (congestive) heart failure (principal); Z95.2 Presence of prosthetic heart valve
CPT/HCPCS: 71046

== ENCOUNTER 2019-08-29 11:09 | Outpatient (CLI) | payer MEDICARE, OTHER, SELFPAY ==
[2019-08-29 11:53] LABS: HCT 40.4 % (40.0-50.0); HGB 13.2 g/dL (13.5-17.5); Mean Corp. HGB Concentration 32.7 g/dL (32.0-36.0); Mean Corpuscular Hemoglobin 29.9 pg (27.0-33.0); Mean Corpuscular Volume 91.4 fL (80-95); Mean Platelet Volume 10.7 fL (8.0-11.0); Platelet Count 254 x1000/uL (130-400); RBC 4.42 m/cumm (4.50-6.00); RBC Distribution Width 14.1 % (11.8-14.1); White Blood Cell Count 8.66 k/cumm (4.4-10.8)
[2019-08-29 14:03] LABS: ALT 34 U/L (16-63); AST 25 U/L (15-37); Alkaline Phosphatase 75 U/L (46-116); BUN 30 mg/dL (7-18); Bilirubin, Direct 0.12 mg/dL (0.00-0.20); Bilirubin, Total 0.4 mg/dL (0.2-1.0); CREATININE 1.17 mg/dL (0.70-1.30); Calcium 9.4 mg/dL (8.5-10.1); Chloride 104 mmol/L (98-107); Estimated GFR 59.98 (mL/min/1.73m2); Glucose 96 mg/dL (74-106); NT-proBNP 225 pg/mL (<300); Potassium 4.5 mmol/L (3.5-5.1); Sodium 143 mmol/L (136-145); TSH 1.16 uIU/mL (0.36-3.74); Total Protein 7.2 g/dL (6.4-8.2)
== END 2019-08-29 11:29 ==
PROVIDERS: PCP Family Medicine; Visit Provider Internal Medicine Cardiovascular Disease
DX: I48.91 Unspecified atrial fibrillation (principal); I50.30 Unspecified diastolic (congestive) heart failure; R60.9 Edema, unspecified; R06.02 Shortness of breath
CPT/HCPCS: 36415; 80048; 80076; 85027; 83880; 84443

== ENCOUNTER 2019-09-09 00:06 | Outpatient (CLI) | payer MEDICARE, OTHER, SELFPAY ==
--- NOTE | 2019-09-09 09:55 | DI.NM_ITS ---
APPROVED REPORT Exam: Exercise Treadmill Patient Location: Out-Patient Room/Bed: Stress Nurse: Lucie Jeong RN BMI: 28.62 Baseline Rhythm: Sinus rhythm Indications: Diastolic heart failure. Pt reports fatigue and intermittent palpitations for about 2 ye ars. Pt reports his fatigued has lessened since the decrease of his dose of Metoprolol dose. Medical History Medical History: Atrial Fibrillation, Carotid artery disease, Fatigue, Hyperlipidemia, HTN Cardiac Medications: Diltiazem, Metoprolol, Atorvastatin, Aspirin, Torsemide., Allergies: No known drug allergies Cardiac Risk Factors: HTN, Hyperlipidemia Previous Cardiac Procedures: Valve Replacement Exercise History: Physically active Lung Sounds: Clear to auscultation Heart Sounds: Murmur Stress Test Details Test: Exercise stress testing was performed using a Lj protocol. Nuclear Acquisition: Rest Tc-99m/Stress Tc-99m 1 day Rest Isotope: Tc-99m Sestamibi. Dose: 12.1 Date: 09/09/2019 Injection Time: 0840 Stress Isotope: Tc-99m Sestamibi. Dose: 37.1 Date: 09/09/2019 Injection Time: 1020 HR Max Heart Rate (APMHR): 140 bpm Resting HR Supine: 76 bpm Target HR (85% APMHR): 119 bpm Resting HR Standin bpm Max HR Achieved: 128 bpm % of APMHR: 91 Recovery HR: 88 bpm HR response to stress: Normal HR response to stress BP Resting BP Supine: 138/70 mmHg Resting BP Standin/62 mmHg Max BP: 170/80 mmHg Recovery BP: 136/60 mmHg BP response to stress: Normal blood pressure response to stress. ECG Resting ECG: Sinus Rhythm Stress ECG: Sinus Tachycardia with rhythm change to a wide monomorphic Bundle branch block patter n at [address] Change: Rate dependent left bundle branch block started at 0524 minutes of exercise through 0315 m inutes recovery period. Time of Change: 0459 Stage: 2 Arrhythmia: None Recovery ECG: Bundle-branch resolved at 0315 minutes of recovery time. Recovery ST Change: Normal Recovery Arrhythmia: None Clinical Time of Stop for Lj: 0545 Reason for Termination: rhythm change to BBB Stress Symptoms: General Fatigue, Dizziness Exercise duration: 5 min45 sec Exercise capacity: 7.05 METs Functional Capacity: Average Capacity Stress ECG Conclusion 1. The patient exercised for 5 minutes 45 seconds (7 METS) 2. Exercise was stopped due to development of left bundle branch block. Patient was asymptomatic 3. The patient met target heart rate with a rate pressure product of 21,000. Protocol Used: Lj Protocol Stress Test Summary STAGE Time (mins) Speed (mph) Grade (%) HR BP SYMPTOMS METS Supine 76 138/70 Standing 86 118/62 1 3 1.7 10 112 140/72 4.6 2 6 2.5 12 128 170/80 7 1 min recovery 121 144/60 Dizzyness. SOB. 3 min recovery 89 160/62 Symptoms subsided. 6 min recovery 88 136/60 MPI Conclusion Ejection fraction with stress was 45%. There was no wall motion abnormality This represents an indeterminate study due to low rate-pressure product as well as rate dependent bun dle branch block. However, at this level of stress there was no evidence of ischemia on SPECT imaging.
== END 2019-09-09 00:26 ==
PROVIDERS: PCP Family Medicine; Visit Provider Internal Medicine Cardiovascular Disease
DX: R07.9 Chest pain, unspecified (principal); I50.32 Chronic diastolic (congestive) heart failure; R00.2 Palpitations; R53.83 Other fatigue; I48.91 Unspecified atrial fibrillation; E78.5 Hyperlipidemia, unspecified; I10 Essential (primary) hypertension; I44.7 Left bundle-branch block, unspecified
CPT/HCPCS: 78452; 93016; 93018; 93017

== ENCOUNTER 2019-09-12 08:23 | Outpatient (CLI) | payer MEDICARE, OTHER, SELFPAY | END 2019-09-12 08:43 | PROVIDERS: PCP Family Medicine; Referring Provider Family Medicine; Visit Provider Internal Medicine Cardiovascular Disease | DX: I48.91 Unspecified atrial fibrillation (principal) | CPT/HCPCS: 0298T ==

== ENCOUNTER 2019-09-13 00:41 | Outpatient (CLI) | payer MEDICARE, OTHER, SELFPAY ==
--- NOTE | 2019-09-13 10:30 | DI.US_ITS ---
APPROVED REPORT EXAM: Comprehensive 2D, Doppler, and color-flow Echocardiogram Patient Location: Out-Patient Photographer Portrait: Traci Franco RDCS (AE) Rhythm: NSR Indications: diastolic heart failure. atheroscl[place]iss of [place] coronary artery of [place] heart witho ut angina pectoris. I25.10 Conclusion Left Ventricle : The left ventricle is normal size. Left ventricular systolic function is normal. Mi ld concentric ventricular hypertrophy. There is normal LV segmental wall motion. There is grade 2 di astolic dysfunction. LVEF is 55-59%. Right Ventricle : The right ventricle is top normal size. The right ventricular systolic function ap pears low normal. Atria : Left atrium is mildly dilated. The right atrium size is top normal. Aortic Valve : An AVR is present, and appears to function normally. No significant aortic regurgitati on. There is no aortic valvular stenosis. Mitral Valve : Moderate mitral annular calcification. Mild mitral regurgitation. Mild mitral valve st enosis. Tricuspid Valve : The tricuspid valve is normal in structure. Mild tricuspid regurgitation. Great Vessels : The IVC is mildly dilated, but collapses >50% with inspiration. Estimated RVSP is 3 2-40 mmHg. Compared to echocardiogram dated 10/09/2018: There is no significant change. Wall motion Left Ventricle The left ventricle is normal size. Left ventricular systolic function is normal. Mild concentric vent ricular hypertrophy. There is normal LV segmental wall motion. There is grade 2 diastolic dysfunction LVEF is 55-59%. Right Ventricle The right ventricle is top normal size. The right ventricular systolic function appears low normal. Atria Left atrium is mildly dilated. The right atrium size is top normal. Aortic Valve An AVR is present, and appears to function normally. There is no aortic valvular stenosis. No signifi cant aortic regurgitation. Mitral Valve Moderate mitral annular calcification. Mild mitral valve stenosis. Mild mitral regurgitation. Tricuspid Valve The tricuspid valve is normal in structure. Mild tricuspid regurgitation. Great Vessels The aortic root is normal in size. The ascending aorta size is normal. The IVC is mildly dilated, but collapses >50% with inspiration. Estimated RVSP is 32-40 mmHg. Pericardium There is no pericardial effusion. 2D Dimensions IVSd 1.30 cm M: 0.6-1.2 LV EDV A2C 96.9 mL PWd 1.15 cm M: 0.6 - 1.2 LV EDV A4C 77.3 mL LVDd 4.85 cm M: 4.2 - 5.8 LA Volume Index Biplane 61.4 mL/m2 LVDs 3.45 cm M: 2.5 - 4.0 LA Area A4C 28.62 cm2 Aortic Root 2.40 cm M: 3.1 - 3.7 LA Area A2C 33.37 cm2 RVID Base (AP4) 4.10 cm (M/F) 2.5-4.1 EF AP4 62.6 % RA Area A4C 19.59 cm2 EF AP2 58.0 % LVOT 2.05 cm (M/F) 1.5-2.5 EF BP 59.0 % Ascending Aorta 3.39 cm M: 2.6 - 3.4 IVC 2.17 cm LVEF (Teich) 55.5 % TAPSE 1.69 cm (M/F) <1.7 LVEF (Topete's) 59.05 % M: 52 - 72 LV Volume 71.81 mL M: 62 - 150 LV Volume Index 32.78 mL/m2 M: 34 - 74 FS 28.90 % LV Diastology MV E' medial 0.053 (>0.07 m/s) E/A Ratio 0.9 LV E/e MED 23.80 (<14) PV S/D Ratio 0.62 MV E' lateral 0.053 (>0.1 m/s) TR Peak Velocity 2.79 m/s LV E/e LAT 24.15 (<14) Pulm Vein s 0.29 m/s Pulm Vein d 0.47 m/s LA vol/ BSA A2C s A-L 63.5 mL/m2 LA vol/ BSA A4C s A-L 52.7 mL/m2 Aortic Valve LVOT Area 3.38 cm2 AoV Area Vmax 1.41 cm2 LVOT Vmax 1.17 m/s AoV Area/ BSA (Vmax) 0.64 cm2/m2 LVOT Mean Sergio. 0.91 m/s ASHA Mean Sergio. 1.56 cm2 LVOT Peak Gr. 5.4 mmHg ASHA Mean Sergio. Index 0.71 cm2/m2 LVOT Mean Gr. 3.6 mmHg LVOT VTI 0.294 m AoV Vmax 2.79 (0.5-1.3 m/s) AoV Mean Sergio. 1.98 m/s AoV Peak Grad 31.1 mmHg LVOT SV 99.16 mL AoV Mean Grad 17.4 (<5 mmHg) AoV VTI 0.625 (0.18-0.25 m) VTI Ratio 0.47 AoV Area VTI 1.59 (2.5-4.5 cm2) AoV Area/ BSA (VTI) 0.72 cm/m2 Mitral Valve MV E Max Sergio. 1.27 (0.4-1.3 m/s) MVA VTI 3.65 (4.0-6.0 cm2) MV A Velocity 1.35 (0.4-1.3 m/s) RVOT Peak Gr. 1.99 mmHg E/A Ratio 0.94 RVOT Mean Gr. 1.20 mmHg MV Decel. Time 332 (160-240 msec) MV PHT 96 msec MVA PHT 2.25 cm2 PV Peak Velocity 1.00 (0.5-1.5 m/s) RVOT Peak Sergio. 0.70 m/s RVOT VTI 0.133 m Tricuspid Valve TR P. Gradient 31.0 mmHg TV Regurg Vmax 2.79 m/s RAP Estimate 8.00 mmHg RVSP 39.1 mmHg
== END 2019-09-13 01:01 ==
PROVIDERS: PCP Family Medicine; Visit Provider Internal Medicine Cardiovascular Disease
DX: I50.32 Chronic diastolic (congestive) heart failure (principal); I25.10 Atherosclerotic heart disease of native coronary artery without angina pectoris; I48.91 Unspecified atrial fibrillation; I34.2 Nonrheumatic mitral (valve) stenosis; I10 Essential (primary) hypertension; Z95.2 Presence of prosthetic heart valve
CPT/HCPCS: 93306

== ENCOUNTER → 2019-09-19 10:46 | Outpatient (BNVA) | payer MEDICARE, OTHER, SELFPAY | PROVIDERS: PCP Family Medicine; Referring Provider Family Medicine; Visit Provider Internal Medicine Cardiovascular Disease | DX: I50.32 Chronic diastolic (congestive) heart failure (principal); I48.0 Paroxysmal atrial fibrillation; Z95.2 Presence of prosthetic heart valve; I11.0 Hypertensive heart disease with heart failure; I25.10 Atherosclerotic heart disease of native coronary artery without angina pectoris | CPT/HCPCS: 99214 ==

== ENCOUNTER 2019-10-14 09:34 | Outpatient (RCR) | payer MEDICARE, OTHER, SELFPAY | END 2019-10-19 23:59 | disposition home or self-care (01) | LOC: CR 09:34 | PROVIDERS: PCP Family Medicine; Visit Provider Family Medicine | DX: Z51.89 Encounter for other specified aftercare (principal) ==

== ENCOUNTER → 2019-10-24 13:53 | Outpatient (BNVA) | payer MEDICARE, OTHER, SELFPAY | PROVIDERS: PCP Family Medicine; Referring Provider Family Medicine; Visit Provider Internal Medicine Cardiovascular Disease | DX: I25.10 Atherosclerotic heart disease of native coronary artery without angina pectoris (principal); I50.32 Chronic diastolic (congestive) heart failure; I48.0 Paroxysmal atrial fibrillation; Z95.2 Presence of prosthetic heart valve; I11.0 Hypertensive heart disease with heart failure | CPT/HCPCS: 99214 ==

== ENCOUNTER 2019-10-28 10:00 | Outpatient (RCR) | payer MEDICARE, OTHER, SELFPAY | END 2019-11-19 23:59 | disposition home or self-care (01) | LOC: CR 10:00 | PROVIDERS: PCP Family Medicine; Visit Provider Family Medicine | DX: I25.10 Atherosclerotic heart disease of native coronary artery without angina pectoris (principal); Z51.89 Encounter for other specified aftercare | CPT/HCPCS: S9472 ==

== ENCOUNTER 2019-11-01 23:22 | Emergency (ER) | payer MEDICARE, OTHER, SELFPAY ==
--- NOTE | 2019-11-01 00:42 | DI.RAD_ITS ---
EXAM: XR CHEST 2V PA LATERAL CLINICAL HISTORY: dizzy, near syncope TECHNIQUE: 2D digital imaging was performed. COMPARISON: XR CHEST 2V PA LATERAL from 08/22/2019 FINDINGS: MEDIASTINUM: Normal. HEART: Normal. Aortic valve replacement. PULMONARY VASCULATURE: Stable. LUNGS: Clear. PLEURAL SPACE: No pleural effusion or pneumothorax. BONE:Degenerative changes in the spine. Findings of prior right rotator cuff surgery. OTHER FINDINGS:Normal. IMPRESSION: No acute pulmonary findings. DATA REPOSITORY: RADIATION DOSE DELIVERED:
--- NOTE | 2019-11-01 00:42 | DI.CT_ITS ---
EXAM: CT HEAD WO CLINICAL HISTORY: dizzy, r/o stroke. TECHNIQUE: Imaging Protocol: Axial computed tomography images with coronal and sagittal reformatted images were created and reviewed COMPARISON: MRI - BRAIN W/WO CONTRAST from 03/02/2015 FINDINGS: Ventricles and Extra axial spaces: Mild prominence of the ventricles and sulci are consistent with ce rebral atrophy. Hemorrhage: None. Cerebral parenchyma: There are areas of decreased attenuation in the white matter most consistent wit h small vessel ischemic disease. There is an old lacunar infarct in the right basal gangliar region. Midline shift: None. Brainstem/Cerebellum: Normal. Calvarium: Normal. Visualized Paranasal sinuses/Mastoids: There is mucosal thickening in the left sphenoid sinus and a f ew left ethmoid air cells. Soft Tissues: Unremarkable. IMPRESSION: No acute intracranial process.Mild sinus disease. RADIATION DOSE DELIVERED: DATA REPOSITORY: All CT scans at this facility are submitted to the National Radiology Data Registry (NRDR) Dose Index Registry (DIR) with the [employer] (ACR). RADIATION OPTIMIZATION: All CT scans at this facility use at least one of these dose optimization te chniques: automated exposure control; mA and/or kV adjustment per patient size (includes targeted exa ms where dose is matched to clinical indication); or iterative reconstruction.
--- NOTE | 2019-11-01 23:13 | ED.GENADUL_ITS ---
Discharge Plan Disposition Patient Disposition: HOME Condition: Good Discharge Details Chief Complaint: Dizzy/Sync Clinical Impression: Dizziness, Vertigo Primary Care Provider: Robert Baltazar ED Provider: Rivas Drew Home Meds and New Rx's Prescriptions: New meclizine 25 mg tablet 25 mg PO BID Qty: 14 RF: 0 No Action multivitamin [One Daily] 1 EACH tablet 2 ea PO DAILY RF: 0 aspirin [Aspir-81] 81 MG tablet,delayed release (DR/EC) 81 mg PO DAILY RF: 0 ascorbic acid (vitamin C) 500 MG tablet 2 tab PO DAILY RF: 0 Eliquis 5 mg tablet 5 mg PO BID Qty: 180 RF: 3 atorvastatin 40 mg tablet 40 mg PO HS Qty: 90 RF: 3 diltiazem HCl 360 mg capsule,extended release 24 hr 360 mg PO DAILY Qty: 90 RF: 3 tamsulosin 0.4 mg capsule 0.8 mg PO DAILY 90 Days Qty: 180 RF: 3 torsemide [Demadex] 10 mg tablet 20 mg PO DAILY RF: 0 Discharge Instructions Instructions: Vertigo (ED) Additional Instructions: At this time your CT scan shows no evidence of any new stroke. Your symptoms may have been from a small mini stroke or potentially more likely an issue in your ear. Please take the meclizine as needed, drink plenty of fluids at home. If you notice any worsening of your symptoms, or any new symptoms such as vomiting, diarrhea, fever, chills, shortness of breath, chest pain, numbness, weakness, or fainting , please return immediately to the emergency department for reevaluation. Please follow up with your primary care provider as soon as possible for reassessment and reevaluation. As always, it was a pleasure participating in your medical care today. Referrals: Robert Baltazar DO [Primary Care Provider] - Medical Decision Making 77 yr old male w/ PMH of diastolic CHF, remote bioprosthetic AVR for A.S. (2009), PAF (first dx after AVR, but more recently occurred after R. TKA while at [facility] in [place]. More recently found to have persistent AF associate w/ acute CHF currently on Eliquis, with a history of previous TIAs, he presents today for evaluation of sudden onset dizziness, mild lightheadedness and vomiting. Patient did not have an episode of syncope. Patient states that for an hour and 1/2 to 2 hours prior to arrival he had a sudden onset of what he described as dizziness that began over the course of 2 minutes, he described things as moving in an atypical vertical pattern, he had no associated ringing. He denies any recent trauma or falls. When this happened he also felt lightheaded and uneasy. He did not fall, he did not hit his head. His nauseousness and vomiting continued and was made notably worse whenever he would move his head or move around. He denies any chest pain, chest tightness, chest heaviness. He denies having symptoms like this before in the past. He has no other complaints at this time. No other modifying factors. Physical exam demonstrates no focal neurologic deficits. Hints exam demonstrates no vertical correction for test of skew, no horizontal or vertical nystagmus. No other significant abnormalities. Neurologic exam is notably benign. Does appear to have dry mucous membranes. Differential at this time is highest for peripheral vertigo, potential but less likely TIA versus stroke, however he shows no signs of cerebellar infarct on his clinical exam at this time. Cardiac dysrhythmia appears unlikely but is on the differential. Will assess for these, gently rehydrate, and reassess. 2 AM Laboratory work-up is returned benign, no significant abnormalities, no significant electrolyte abnormalities. Troponin normal, EKG shows no evidence of STEMI. CT scan shows no evidence of acute infarct, there is evidence of old lacunar infarct disease within the right basal ganglion region. There is some atrophy. Chest x-ray negative. On reassessment the patient states he feels much better. We did get him up, he ambulated around the ED well without any difficulty. No signs of imbalance or ataxia. He is able to tolerate p.o. well, and has drunk both water and juice without difficulty. He is feeling better. I did give the patient the option of admission and observation versus discharge. and at this time through notable discussion, weighing the risks and benefits, u tilizing a shared decision making process, and with a very clear discussion on the benefit of admission and the risks associated with discharge including the unlikely but potential worst case scenario of or lifelong disability the patient has refused admission and would like to go home. Patient is of a appropriate age to make decisions. The patient is of sound mind, appears clinically sober, and has capacity to make decisions by my clinical exam. Respecting the patient's wishes, they will be discharged home. I do not feel that there is much additional work-up or treatment that could be achieved at this time as he is on anticoagulants at this time already and his symptoms have completely resolved after the meclizine. Differential is highest now at this time for peripheral vertigo, but still does include but less likely TIA. We will give the patient meclizine for home use, discussed the importance of good hydration, as well as close follow-up with PCP. I have extensively reviewed the treatment plan and discharge instructions with the patient and their family. I have addressed all patient concerns at this time. The patient and family was made aware of what symptoms to monitor for that would warrant a return to the emergency department. Discussed the plan with the patient and family, they demonstrate verbal understanding and agreement with our assessment and plan at this time. EKG 23: 55 Rate 77, intervals normal except for SD at 230,, sinus rhythm with first-degree AV block, no evidence of STEMI, no significant ST elevations or depressions. FINDINGS: Lungs: There is slight pulmonary vascular congestion. Pleural space: Unremarkable. No pleural effusion. No pneumothorax. Heart/Mediastinum: The patient is status post aortic valve replacement. Bones/joints: The patient is status post sternotomy. There are degenerative changes of the thoracic spine. The patient is status post right rotator cuff repair. IMPRESSION: Status post sternotomy and aortic valve replacement. Status post right rotator cuff repair. Degenerative changes of the thoracic spine. Slight pulmonary vascular congestion. No significant change when compared to the earlier study. Thank you for allowing us to participate in the care of your patient. Dictated and Authenticated by: Augusto Kern MD 11/02/2019 1:00 AM Eastern Time ([place] & [place]) FINDINGS: Brain: There is slight sulcal prominence for patient of this age. There is an old lacunar infarct within the right basal ganglion region. There are periventricular white matter changes consistent with small vessel disease. Ventricles: The ventricular system is midline and symmetrical. It is slightly prominent for a patient this age. Bones/joints: Unremarkable. No acute fracture. Sinuses: There is slight mucosal thickening of the left-sided ethmoid sinuses. There is mucosal thickening of the left sphenoid sinus. Mastoid air cells: Visualized mastoid air cells are well aerated. Soft tissues: Unremarkable. IMPRESSION: Sinusitis as above. Periventricular white matter changes consistent with small vessel disease. Old lacunar infarct within the right basal ganglion region. Atrophy. ASSESSMENT: ASPECTS ([place] Stroke Program Early CT Score) is 10. Thank you for allowing us to participate in the care of your patient. Dictated and Authenticated by: Augusto Kern MD 11/02/2019 12:57 AM Eastern Time ([place] & [place]) HPI General Date/Time Provider Initiated Documentation: 11/01/19 23:35 . HPI Narrative: 77 yr old male w/ PMH of diastolic CHF, remote bioprosthetic AVR for A.S. (2009), PAF (first dx after AVR, but more recently occurred after R. TKA while at [facility] in [place]. More recently found to have persistent AF associate w/ acute CHF currently on Eliquis, with a history of previous TIAs, he presents today for evaluation of sudden onset dizziness, mild lightheadedness and vomiting. Patient did not have an episode of syncope. Patient states that for an hour and 1/2 to 2 hours prior to arrival he had a sudden onset of what he described as dizziness that began over the course of 2 minutes, he described things as moving in an atypical vertical pattern, he had no associated ringing. He denies any recent trauma or falls. When this happened he also felt lightheaded and uneasy. He did not fall, he did not hit his head. His nauseousness and vomiting continued and was made notably worse whenever he would move his head or move around. He denies any chest pain, chest tightness, chest heaviness. He denies having symptoms like this before in the past. He has no other complaints at this time. No other modifying factors. Related Data Home Medications Medication Instructions Recorded Confirmed ascorbic acid (vitamin C) 2 tab PO DAILY 11/26/12 11/02/19 aspirin [Aspir-81] 81 mg PO DAILY tab 11/26/12 11/02/19 multivitamin [One Daily] 2 ea PO DAILY 11/26/12 11/02/19 apixaban 5 mg tablet 5 mg PO BID #180 tab 11/05/18 11/02/19 atorvastatin 40 mg tablet 40 mg PO HS #90 tab 11/23/18 11/02/19 diltiazem HCl 360 mg capsule,24 360 mg PO DAILY #90 tab-cap 12/06/18 11/02/19 hr,extended release tamsulosin 0.4 mg capsule 0.8 mg PO DAILY 90 Days #180 05/20/19 11/02/19 tab-cap torsemide 10 mg tablet 20 mg PO DAILY tab 09/19/19 11/02/19 meclizine 25 mg PO BID #14 tab 11/02/19 Previous Rx's Medication Instructions Recorded apixaban 5 mg tablet 5 mg PO BID #180 tab 11/05/18 atorvastatin 40 mg tablet 40 mg PO HS #90 tab 11/23/18 diltiazem HCl 360 mg capsule,24 360 mg PO DAILY #90 tab-cap 12/06/18 hr,extended release tamsulosin 0.4 mg capsule 0.8 mg PO DAILY 90 Days #180 05/20/19 tab-cap meclizine 25 mg PO BID #14 tab 11/02/19 Allergies Allergy/AdvReac Type Severity Reaction Status Date / Time No Known Allergies Allergy Verified 11/01/19 23:32 General JANINE: 3 Review of Systems All systems reviewed & are unremarkable except as noted in HPI and below PFSH Medical History (Updated 11/02/19 @ 02:08 by Rivas Drew DO) Adenomatous colon polyp (Chronic 08/21/04) multiple small polyps, hyperplastic and at least one <4mm adenoma; neg 2009 colon Atherosclerosis of [place] coronary artery of [place] heart without angina pectoris (Chronic 09/20/09) found on cath 2009 for M, valve; last stress ECHO 01/11/12 neg ECHO to Lj 3. Dental prophylaxis Benign neoplasm of colon (Chronic 08/21/04) multiple small polyps, hyperplastic and at least one <4mm adenoma; neg 2009 colon Coronary atherosclerosis of [place] coronary vessel (Chronic 09/20/09) found on cath 2009 for M, valve; last stress ECHO 01/11/12 neg ECHO to Lj 3. 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) Surgical History (Updated 10/01/19 @ 10:37 by Ryann Mello RN) cervical diskectomy (07/01/15) anterior with fusion C4-5; [facility] [place] Extraction of cataract (07/28/14) Heart valve replaced (Chronic 09/20/11) Bioprosthetic Aortic Valve History of cardiac cath (Chronic) 09/24/2019 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) Bioprosthetic Aortic Valve; yearly ECHO & [place] f/u in Sept Replacement of aortic valve (01/19/10) Bioprosthetic Valve, [facility] [place]; [place] f/u every Sept 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) [facility] knee Social History Smoking/Tobacco Use Status: Never Drug use: Never Substance use type: does not use Household members: spouse Housing: house Number of Children: 2 number of grandchildren: 2 Communication Needs: Corrective Lenses Do you need help understanding health information?: Rarely Pets and animals: No What is your relationship status?: Panel score (0-1 are the most socially isolated patients): 1 What type of physical activity do you participate in: walking and other Duration: 15-30 minutes/day Frequency: 1-2 times per week Seatbelt use: always Working smoke detector in home: Yes Fire extinguisher in home: Yes Carbon monox detector in home: Yes Do you feel safe in your relationship?: Yes Exam Narrative Exam Narrative: 1.Const: Well-nourished, Well-developed, appearing stated age 2.Eyes: PERRL, no conjunctival injection, and symmetrical lids. 3.ENT: Atraumatic external nose and ears. Dry MM. Neck: Symmetric, trachea midline, No thyromegaly. 4.CVS: +S1/S2, No murmurs or gallops. Peripheral pulses 2+ and equal in all extremities. Brisk capillary refill in all extremities. Radial pulse +2 bilaterally 5.RESP: Unlabored respiratory effort. Clear to auscultation bilaterally. No wheezes rales or rhonchi 6.GI: Soft, Nontender/Nondistended, No hepatosplenomegaly. No guarding or rebound. 7.MSK: Normocephalic/Atraumatic, Extremities w/o deformity or ttp No cyanosis or clubbing, Normal movement of all extremities 8.Skin: Warm, Dry. No rashes or lesions. 9.Neuro: drip pumper II-XII grossly intact. Sensation grossly intact, no focal neurologic deficits. All 6 cardinal planes of vision are fully intact. No evidence of rotatory or vertical nystagmus. The patient demonstrated a normal [id number], good dexterity. There was no evidence of dysdiadochokinesia. Patient was able to ambulate without difficulty. There was no wide-based gait. Romberg testing was normal. [id number]-[id number] testing was normal. Sensation was intact bilaterally as well as muscle strength bilaterally for all extremities. Patient was able to verbalize butter cup with no slurring, or miss pronunciation. Cerebellar function testing is normal. The patient demonstrates a normal hints exam with no findings concerning for a central event. No vertical nystagmus. The head impulse test is negative for any significant abnormality. Test of skew does show minimal horizontal correction, no vertical correction whatsoever. Patient ambulates well with no evidence of ataxia. No suggestion of a central cerebellar event. 10.Psych: (AAO) x3. Appropriate mood and affect
[2019-11-01 23:25] VITALS: BP 165/68; PULSE 82; O2SAT 93
[2019-11-01 23:52] LABS: Abs Immature Grans 0.03 k/cumm (0.0-0.09); Absolute Basophil Count 0.03 k/cumm (0.0-0.2); Absolute Eosinophil Count 0.22 k/cumm (0.0-0.7); Absolute Lymphocyte Count 1.28 k/cumm (1.2-3.4); Absolute Monocyte Count 0.79 k/cumm (0.11-0.7); Absolute Neutrophil Count 7.62 k/cumm (1.2-6.7); Basophils % 0.3; Eosinophils % 2.2; HCT 38.7 % (40.0-50.0); HGB 12.7 g/dL (13.5-17.5); Immature Grans % 0.3 %; Lymphocytes % 12.8; Mean Corp. HGB Concentration 32.8 g/dL (32.0-36.0); Mean Corpuscular Hemoglobin 30.1 pg (27.0-33.0); Mean Corpuscular Volume 91.7 fL (80-95); Mean Platelet Volume 10.2 fL (8.0-11.0); Monocytes % 7.9; Neutrophils % 76.5; Platelet Count 249 x1000/uL (130-400); RBC 4.22 m/cumm (4.50-6.00); White Blood Cell Count 9.97 k/cumm (4.4-10.8)
[2019-11-02 00:04] LABS: Lipase 136 U/L (73-393); Magnesium 2.2 mg/dL (1.8-2.4)
[2019-11-02] MEDS: Meclizine 25 MG TAB PO ×2 (00:05→02:15)
[2019-11-02] MEDS: Normal Saline 500 ML IV (00:05)
[2019-11-02 00:09] LABS: ALT 40 U/L (16-63); AST 23 U/L (15-37); Albumin 3.6 g/dL (3.4-5.0); Alkaline Phosphatase 73 U/L (46-116); Anion Gap 7.7 mmol/L (3-11); BUN 24 mg/dL (7-18); Bilirubin, Total 0.2 mg/dL (0.2-1.0); CO2 27.3 mmol/L (21.0-32.0); CREATININE 1.08 mg/dL (0.70-1.30); Calcium 8.9 mg/dL (8.5-10.1); Chloride 107 mmol/L (98-107); Glucose 124 mg/dL (74-106); Potassium 3.6 mmol/L (3.5-5.1); Sodium 142 mmol/L (136-145); Total Protein 7.1 g/dL (6.4-8.2)
[2019-11-02 00:10] LABS: Troponin I < 0.05 ng/Ml (<0.06)
--- NOTE | 2019-11-02 00:57 | DI.VRAD_ITS ---
PROCEDURE INFORMATION: Exam: CT Head Without Contrast Exam date and time: 11/01/2019 12:42 AM Age: 79 years old Clinical indication: Dizziness and other: Syncope TECHNIQUE: Imaging protocol: Computed tomography of the head without contrast. Radiation optimization: All CT scans at this facility use at least one of these dose optimization techniques: automated exposure control; mA and/or kV adjustment per patient size (includes targeted exams where dose is matched to clinical indication); or iterative reconstruction. Other technique: STROKE PROTOCOL was implemented. COMPARISON: No relevant prior studies available. FINDINGS: Brain: There is slight sulcal prominence for patient of this age. There is an old lacunar infarct within the right basal ganglion region. There are periventricular white matter changes consistent with small vessel disease. Ventricles: The ventricular system is midline and symmetrical. It is slightly prominent for a patient this age. Bones/joints: Unremarkable. No acute fracture. Sinuses: There is slight mucosal thickening of the left-sided ethmoid sinuses. There is mucosal thickening of the left sphenoid sinus. Mastoid air cells: Visualized mastoid air cells are well aerated. Soft tissues: Unremarkable. IMPRESSION: Sinusitis as above. Periventricular white matter changes consistent with small vessel disease. Old lacunar infarct within the right basal ganglion region. Atrophy. ASSESSMENT: ASPECTS ([place] Stroke Program Early CT Score) is 10. Dictated and Authenticated by: Augusto Kern MD. Ordering:UMU Hathaway MD
--- NOTE | 2019-11-02 01:00 | DI.VRAD_ITS ---
PROCEDURE INFORMATION: Exam: XR Chest, 2 Views Exam date and time: 11/01/2019 12:36 AM Age: 79 years old Clinical indication: Other: Dizzy, syncopal TECHNIQUE: Imaging protocol: XR of the chest Views: 2 views. COMPARISON: CR XR CHEST 2V PA LATERAL 08/22/2019 12:20 PM FINDINGS: Lungs: There is slight pulmonary vascular congestion. Pleural space: Unremarkable. No pleural effusion. No pneumothorax. Heart/Mediastinum: The patient is status post aortic valve replacement. Bones/joints: The patient is status post sternotomy. There are degenerative changes of the thoracic spine. The patient is status post right rotator cuff repair. IMPRESSION: Status post sternotomy and aortic valve replacement. Status post right rotator cuff repair. Degenerative changes of the thoracic spine. Slight pulmonary vascular congestion. No significant change when compared to the earlier study. Dictated and Authenticated by: Augusto Kern MD. Ordering:UMU Hathaway MD
[2019-11-02 02:06] VITALS: BP 151/67; PULSE 86; RESP 14; TEMP 36.6; O2SAT 95
--- NOTE | 2019-11-02 02:07 | NUR.NOTE ---
Ambulated in core with steady gait. Tolerating PO's.
== END 2019-11-02 02:21 | disposition home or self-care (01) ==
LOC: ER 11-02 02:33
PROVIDERS: Emergency Provider Student in an Organized Health Care Education/Training Program; PCP Family Medicine
DX: R42 Dizziness and giddiness (principal); R11.2 Nausea with vomiting, unspecified; I10 Essential (primary) hypertension; Z53.29 Procedure and treatment not carried out because of patient's decision for other reasons
CPT/HCPCS: 36415; 80053; 83690; 93005; 96360; 96361; 99285; 70450; 71046; 83735; 84484; 85025; 93010; 99284

== ENCOUNTER → 2020-01-23 13:37 | Outpatient (BNVA) | payer MEDICARE, OTHER, SELFPAY | PROVIDERS: PCP Family Medicine; Referring Provider Family Medicine; Visit Provider Internal Medicine Cardiovascular Disease | DX: I48.0 Paroxysmal atrial fibrillation (principal); Z95.2 Presence of prosthetic heart valve; I25.10 Atherosclerotic heart disease of native coronary artery without angina pectoris; I10 Essential (primary) hypertension | CPT/HCPCS: 99213 ==

== ENCOUNTER 2020-02-14 11:11 | Outpatient (CLI) | payer MEDICARE, OTHER, SELFPAY ==
[2020-02-14 23:03] LABS: COVID-19 RT-PCR UVMMC Result Negative (Negative)
== END 2020-02-14 11:31 ==
PROVIDERS: PCP Family Medicine; Visit Provider Family Medicine
DX: Z03.818 Encounter for observation for suspected exposure to other biological agents ruled out (principal)
CPT/HCPCS: U0003

== ENCOUNTER 2020-02-18 14:08 | Outpatient (RCR) | payer MEDICARE, OTHER, SELFPAY | END 2020-02-18 23:59 | disposition home or self-care (01) | LOC: CR 14:08 | PROVIDERS: PCP Family Medicine; Visit Provider Family Medicine | DX: I25.10 Atherosclerotic heart disease of native coronary artery without angina pectoris (principal); Z95.5 Presence of coronary angioplasty implant and graft | CPT/HCPCS: S9472 ==

== ENCOUNTER 2020-03-20 11:00 | Outpatient (RCR) | payer MEDICARE, OTHER, SELFPAY | END 2020-03-20 23:59 | disposition home or self-care (01) | LOC: CR 11:00 | PROVIDERS: PCP Family Medicine; Visit Provider Family Medicine | DX: I25.10 Atherosclerotic heart disease of native coronary artery without angina pectoris (principal); Z95.5 Presence of coronary angioplasty implant and graft | CPT/HCPCS: S9472 ==

== ENCOUNTER 2020-04-13 14:49 | Outpatient (RCR) | payer MEDICARE, OTHER, SELFPAY | END 2020-04-20 23:59 | disposition home or self-care (01) | LOC: CR 14:49 | PROVIDERS: PCP Family Medicine; Visit Provider Family Medicine | DX: Z95.5 Presence of coronary angioplasty implant and graft (principal); Z51.89 Encounter for other specified aftercare; I25.10 Atherosclerotic heart disease of native coronary artery without angina pectoris | CPT/HCPCS: S9472 ==

== ENCOUNTER → 2020-04-28 13:44 | Outpatient (BNVA) | payer MEDICARE, OTHER, SELFPAY | PROVIDERS: PCP Family Medicine; Referring Provider Family Medicine; Visit Provider Internal Medicine Cardiovascular Disease | DX: I25.10 Atherosclerotic heart disease of native coronary artery without angina pectoris (principal); I48.0 Paroxysmal atrial fibrillation; I50.32 Chronic diastolic (congestive) heart failure; I95.1 Orthostatic hypotension; I11.0 Hypertensive heart disease with heart failure; Z95.2 Presence of prosthetic heart valve | CPT/HCPCS: 99214 ==

== ENCOUNTER 2020-07-08 01:57 | Outpatient (CLI) | payer MEDICARE, OTHER, SELFPAY ==
[2020-07-08 11:27] LABS: Anion Gap 10.7 mmol/L (3-11); BUN 24 mg/dL (7-18); CO2 29.3 mmol/L (21.0-32.0); CREATININE 1.24 mg/dL (0.70-1.30); Calcium 9.7 mg/dL (8.5-10.1); Chloride 103 mmol/L (98-107); Estimated GFR 56.09 (mL/min/1.73m2); Glucose 100 mg/dL (74-106); Potassium 4.4 mmol/L (3.5-5.1); Sodium 143 mmol/L (136-145); Vitamin B12 586 pg/mL (193-986)
[2020-07-11 08:39] LABS: Thiamine (Vitamin B1), WB 171 nmol/L (70-180)
== END 2020-07-08 02:17 ==
PROVIDERS: PCP Family Medicine; Visit Provider Family Medicine
DX: G62.89 Other specified polyneuropathies (principal)
CPT/HCPCS: 36415; 80048; 82607; 84425

== ENCOUNTER → 2020-10-26 12:38 | Outpatient (BNVA) | payer MEDICARE, OTHER, SELFPAY | PROVIDERS: PCP Family Medicine; Referring Provider Family Medicine; Visit Provider Internal Medicine Cardiovascular Disease | DX: I50.32 Chronic diastolic (congestive) heart failure (principal); I48.0 Paroxysmal atrial fibrillation; E78.2 Mixed hyperlipidemia; Z95.2 Presence of prosthetic heart valve; Z98.890 Other specified postprocedural states | CPT/HCPCS: 99214 ==

== ENCOUNTER → 2020-11-17 13:43 | Outpatient (BNVA) | payer MEDICARE, OTHER, SELFPAY | PROVIDERS: PCP Family Medicine; Referring Provider Family Medicine; Visit Provider Psychiatry & Neurology Neurology | DX: R20.2 Paresthesia of skin (principal); G95.29 Other cord compression; H81.10 Benign paroxysmal vertigo, unspecified ear | CPT/HCPCS: 99214 ==

== ENCOUNTER 2020-11-19 03:27 | Outpatient (CLI) | payer MEDICARE, OTHER, SELFPAY ==
[2020-11-19 11:12] LABS: Hemoglobin A1C 6.1 % (<5.7)
[2020-11-20 13:15] LABS: Albumin 60.2 % (55.8-66.1); Total Protein 7.3 g/dL (6.3-8.2)
== END 2020-11-19 03:28 | disposition home or self-care (01) ==
LOC: LBO 03:27
PROVIDERS: PCP Family Medicine; Visit Provider Psychiatry & Neurology Neurology
DX: R73.9 Hyperglycemia, unspecified (principal); G62.9 Polyneuropathy, unspecified
CPT/HCPCS: 36415; 83036; 84165

== ENCOUNTER 2020-12-04 03:11 | Outpatient (CLI) | payer MEDICARE, OTHER, SELFPAY ==
--- NOTE | 2020-12-04 06:45 | DI.MRI_ITS ---
EXAM: MR CERVICAL SPINE WO CLINICAL HISTORY: new hand and feet paraesthes; +Babinski,S/P C4-5 SURGERY,CERVICAL CORD TECHNIQUE: Multiplanar multisequence MRI of the cervical spine was performed without intravenous con trast. COMPARISON: MR MRI - CERVICAL SPINE WO CONT from 03/11/2015 FINDINGS: BONES: Vertebral body heights are maintained. Intervertebral disc spaces are normal. Alignment is nor mal. Bone marrow signal intensity is within normal limits. The patient is now status post anterior ce rvical disc fusion at C4-C5. CERVICAL CORD: Craniovertebral junction is unremarkable. There is unchanged area of hyperintense sign al on the T2 weighted images in the posterior spinal cord at the C4-C5 level. SOFT TISSUES: Unremarkable. C2-3: No disc herniation or bulge is identified. No significant central spinal canal or neural forami nal stenosis. C3-4: Prominence of the osteophyte disc complex causes mild narrowing of the central spinal canal. T here is moderate bilateral neural foraminal stenosis. C4-5: No disc herniation or bulge is identified. There is persistent narrowing of the central spinal canal. Moderate bilateral neural foraminal stenosis is seen. C5-6: There is mild prominence of the osteophyte disc complex. There may be mild central. Disc qiana iation. No significant central spinal canal stenosis is seen. There is mild bilateral neural forami nal narrowing. C6-7: There is mild prominence of the osteophyte disc complex. No central spinal canal stenosis is s een. No significant right neural foraminal stenosis is present. There is fgwz-[id number] left neur al foraminal stenosis. C7-T1: No disc herniation or bulge is identified. No significant central spinal canal or neural kizzy inal stenosis IMPRESSION: 1. Stable appearance of the C4-C5 level compared to 03/11/2015. Central spinal canal stenosis is note d. There is unchanged area of hyperintense signal in the spinal cord posteriorly at this level. Thi s may represent an area of demyelination, but is stable. 2. Multilevel degenerative changes in the cervical spine resulting in central spinal canal and neural foraminal stenosis as described above. 3. Status post anterior cervical disc fusion at C4-C5. DATA REPOSITORY:
== END 2020-12-04 03:31 ==
PROVIDERS: PCP Family Medicine; Visit Provider Psychiatry & Neurology Neurology
DX: R20.2 Paresthesia of skin (principal); M48.02 Spinal stenosis, cervical region; Z98.1 Arthrodesis status
CPT/HCPCS: 72141

== ENCOUNTER → 2020-12-23 10:41 | Outpatient (BNVA) | payer MEDICARE, OTHER, SELFPAY | PROVIDERS: PCP Family Medicine; Referring Provider Family Medicine; Visit Provider Psychiatry & Neurology Neurology | DX: G56.03 Carpal tunnel syndrome, bilateral upper limbs (principal); G95.20 Unspecified cord compression; G62.9 Polyneuropathy, unspecified; R20.2 Paresthesia of skin; I10 Essential (primary) hypertension | CPT/HCPCS: 95912 ==

== ENCOUNTER 2020-12-25 14:26 | Outpatient (CLI) | payer MEDICARE, OTHER, SELFPAY ==
[2020-12-25 14:44] LABS: ESR 20 mm//hr (0-20); Platelet Count 203 10^3/uL (130-400)
[2020-12-25 15:46] LABS: C-Reactive Protein < 0.05 mg/dL (0.0-0.3)
== END 2020-12-25 14:27 | disposition home or self-care (01) ==
LOC: LBO 14:27
PROVIDERS: PCP Family Medicine; Visit Provider Ophthalmology
DX: H47.011 Ischemic optic neuropathy, right eye (principal); G62.89 Other specified polyneuropathies
CPT/HCPCS: 36415; 85652; 85049; 86140

== ENCOUNTER → 2021-05-03 11:13 | Outpatient (BNVA) | payer MEDICARE, OTHER, SELFPAY | PROVIDERS: PCP Family Medicine; Referring Provider Family Medicine; Visit Provider Internal Medicine Cardiovascular Disease | DX: R06.02 Shortness of breath (principal); I25.10 Atherosclerotic heart disease of native coronary artery without angina pectoris; I48.91 Unspecified atrial fibrillation; Z95.2 Presence of prosthetic heart valve | CPT/HCPCS: 99213 ==

== ENCOUNTER 2021-06-07 18:46 | Inpatient (IN) | payer MEDICARE, OTHER, SELFPAY ==
[2021-06-07] VITALS (30 sets, daily range): BP systolic 141–186; BP diastolic 54–75; PULSE 71–102; RESP 16–34; TEMP 36.6–37.3; O2SAT 87–97
--- NOTE | 2021-06-07 18:45 | RT.EKG_ITS ---
APPROVED REPORT Exam: Resting ECG Reason for Exam: shortness of breath Patient Location: E HR:83 bpm ECG Measurements Heart Rate 83 AXIS WY [id number] P [id number] QRSd 95 QRS 27 QT 354 T 47 QTc 417 Conclusion Atrial fibrillation...V-rate 69- 94, irreg A-activity
[2021-06-07 19:08] LABS: Source Nasal/Nares
--- NOTE | 2021-06-07 19:12 | ED.GENADUL_ITS ---
Discharge Plan Disposition Patient Disposition: [facility] INPATIENT Condition: Stable Discharge Details Chief Complaint: RespSymp Clinical Impression: Breath, shortness, Pleural effusion, CAP (community acquired pneumonia) Primary Care Provider: Robert Baltazar ED Provider: Berry Rios Home Meds and New Rx's Prescriptions: No Action multivitamin [One Daily] 1 EACH tablet 2 ea PO DAILY RF: 0 aspirin [Aspir-81] 81 MG tablet,delayed release (DR/EC) 81 mg PO DAILY RF: 0 ascorbic acid (vitamin C) 500 MG tablet 2 tab PO DAILY RF: 0 Eliquis 5 mg tablet 5 mg PO BID Qty: 180 RF: 3 atorvastatin 40 mg tablet 40 mg PO HS Qty: 90 RF: 3 diltiazem HCl 360 mg capsule,extended release 24 hr 360 mg PO DAILY Qty: 90 RF: 3 metoprolol succinate 25 mg tablet extended release 24 hr 25 mg PO DAILY Qty: 90 RF: 3 tamsulosin 0.4 mg capsule 0.8 mg PO DAILY 90 Days Qty: 180 RF: 3 torsemide 20 mg tablet See Rx Instructions PO DAILY Qty: 120 RF: 3 amoxicillin 500 mg tablet 2,000 mg PO ONCE PRN (Reason: Prior to dental procedures) Qty: 4 RF: 3 Medical Decision Making 80 yo male with hx of afib on apixaban, hld, gerd, who comes in with 2 weeks of general fatigue, shortness of breath with exertion, cough and in the last few days loss of taste and smell. He denies chest pain/pressure, abdominal pain, fevers/chills. He states he has had both moderna vaccines. He is in no distress on exam with an oxygen saturation of 93% on room air. He has clear lung sounds, soft nontender abdomen, no leg swelling or jvd. I suspect covid vs pneumonia given symptoms but also concern for possible PE, will obtain covid test, ecg and troponin (though I feel unlikely this is acs given symptoms seem more infectious) and also cta to further evaluate. PT stable though is still requiring o2, covid negative, cta shows no PE but does have upper ground glass opacities and small pleural effusions, suspect pneumonia given leukocytosis and cough will treat with ceftriaxone and azithromycin and also IV lasix. Discussed with pt and given his new o2 requirement will discuss with hospitalist about admission Differential Diagnosis Differential Diagnosis: covid, pe, pneumonia Medical Records Medical records reviewed: Yes I reviewed the patient's medical records. Imaging Data Radiologic Study: Attestation: I personally reviewed and interpreted this imaging study as follows: Imaging: CT Scan Radiologist's impression: IMPRESSION: 1. No pulmonary emboli. 2. Bilateral upper lobe patchy ground-glass opacities and interlobular septal thickening. 3. Small bilateral pleural effusions with minimal adjacent atelectatic lung. 4. Mediastinal lymphadenopathy. Lab Data Lab results reviewed: Yes I reviewed the patient's lab results. ECG Data Attestation: I personally reviewed and interpreted this ECG (s) as follows: Prior ECG tracings: available for review Interpretation: afib, rate of 83, no acute ischemic findings HPI General Date/Time Provider Initiated Documentation: 06/07/21 18:47 . Limitations to Documentation: no limitations . Information obtained by: patient . History of Present Illness 80 year old M presents to the emergency department with the chief complaint of general weakness, described as moderate, and it has been constant. No relieving factors improve symptom(s), No exacerbating factors reported . Patient notes cough; denies fever/chills and headaches. Patient did receive the following treatments prior to arrival, none Related Data Home Medications Medication Instructions Recorded Confirmed ascorbic acid (vitamin C) 2 tab PO DAILY 11/26/12 05/03/21 aspirin [Aspir-81] 81 mg PO DAILY tab 11/26/12 05/03/21 multivitamin [One Daily] 2 ea PO DAILY 11/26/12 05/03/21 apixaban 5 mg tablet 5 mg PO BID #180 tab 11/02/20 05/03/21 atorvastatin 40 mg tablet 40 mg PO HS #90 tab 11/02/20 05/03/21 diltiazem HCl 360 mg capsule,24 360 mg PO DAILY #90 tab-cap 11/23/20 05/03/21 hr,extended release metoprolol succinate 25 mg 25 mg PO DAILY #90 tab 12/07/20 05/03/21 tablet,extended release 24 hr tamsulosin 0.4 mg capsule 0.8 mg PO DAILY 90 Days #180 01/27/21 05/03/21 tab-cap torsemide 20 mg tablet See Rx Instructions PO DAILY #120 02/01/21 05/03/21 tab amoxicillin 500 mg tablet 2,000 mg PO ONCE PRN #4 tab 05/28/21 Previous Rx's Medication Instructions Recorded apixaban 5 mg tablet 5 mg PO BID #180 tab 11/02/20 atorvastatin 40 mg tablet 40 mg PO HS #90 tab 11/02/20 diltiazem HCl 360 mg capsule,24 360 mg PO DAILY #90 tab-cap 11/23/20 hr,extended release metoprolol succinate 25 mg 25 mg PO DAILY #90 tab 12/07/20 tablet,extended release 24 hr tamsulosin 0.4 mg capsule 0.8 mg PO DAILY 90 Days #180 01/27/21 tab-cap torsemide 20 mg tablet See Rx Instructions PO DAILY #120 02/01/21 tab amoxicillin 500 mg tablet 2,000 mg PO ONCE PRN #4 tab 05/28/21 Allergies Allergy/AdvReac Type Severity Reaction Status Date / Time No Known Allergies Allergy Verified 05/03/21 11:24 General Stated Complaint: RespSymp JANINE: 3 Review of Systems All systems reviewed & are unremarkable except as noted in HPI and below Constitutional Constitutional: Denies chills, Denies fever(s) and Denies weakness Cardiovascular Cardiovascular: Denies chest pain Gastrointestinal Gastrointestinal: Denies abdominal pain, Denies nausea and Denies vomiting Musculoskeletal Musculoskeletal: Denies joint swelling Neurologic Neurologic: Denies weakness Psychiatric Psychiatric: Denies depression [facility] Medical History (Updated 06/07/21 @ 21:04 by Berry Rios MD) Adenomatous colon polyp (08/21/04) multiple small polyps, hyperplastic and at least one <4mm adenoma; neg 2009 colon Atherosclerosis of [place] coronary artery of [place] heart without angina pectoris (09/20/09) found on cath 2009 for M, valve; last stress ECHO 01/11/12 neg ECHO to Lj 3. 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 [facility] [place]-shave biopsy done to r/o further SCC 05/06/21 [facility] shave biopsy right medial calf Vision loss of right eye Surgical History [place] diske[place] (07/01/15) [place] [facility] [place] (07[place]14) Heart valve replaced (09/20/11) Bioprosthetic Aortic Valve History of cardiac cath 09/24/2019 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 Lung cancer Father , lung ca at age 70. Lung cancer Sister , circulatory problems at age 73. Essential hypertension Anemia Sister No problems noted. Social History (Updated 12/23/20 @ 11:00 by Marybeth Stone LPN) Smoking/Tobacco Use Status: Never Smoking risk assessment performed?: Yes Alcohol Intake: current Alcohol Intake frequency: 0-2 drinks per day Alcohol type: wine Drug use: Never Substance use type: does not use Household members: spouse Housing: house Number of Children: 2 number of grandchildren: 2 Communication Needs: Corrective Lenses Education Level: other Details: PHD in Physics Do you need help understanding health information?: Rarely current occupation: retired Physic Professor Pets and animals: No What is your relationship status?: Panel score (0-1 are the most socially isolated patients): 1 What type of physical activity do you participate in: walking and other Duration: 15-30 minutes/day Frequency: 1-2 times per week Seatbelt use: always Working smoke detector in home: Yes Fire extinguisher in home: Yes Carbon monox detector in home: Yes Do you feel safe at home: Yes Do you feel safe in your relationship?: Yes Exam Const General: no acute distress Orientation: alert HENMT Head: normal to inspection Ears: external ears normal General nose exam: external nose normal Mouth: moist mucous membranes Eyes General: appearance normal, both eyes and all related structures Neck Neck: normal visual inspection Resp Effort & Inspection: normal respiratory effort and able to speak in complete sentences Cardio Rate: regular rate GI Palpation: soft and nontender Skin General skin exam: no rashes or lesions noted Neuro General: patient alert and patient oriented x3 Extrem General: normal to inspection Psych Mental Status: mental status grossly normal Course Vital Signs Vital signs: Vital Signs Temperature 37.3 C 06/07/21 18:50 Pulse 98 H 06/07/21 18:50 Respiratory Rate 22 06/07/21 18:50 Blood Pressure 186/62 H 06/07/21 18:50 Pulse Oximetry 93 06/07/21 18:50 Temperature 37.3 C 06/07/21 18:50 Temperature Source Temporal Artery Scan 06/07/21 18:50 Pulse 98 H 06/07/21 18:50 Respiratory Rate 22 06/07/21 18:50 Blood Pressure 186/62 H 06/07/21 18:50 Blood Pressure Position Sitting 06/07/21 18:50 Pulse Oximetry 93 06/07/21 18:50 Oxygen Delivery Method Room Air 06/07/21 18:50 Oxygen Flow Rate 0 06/07/21 18:50 Pain Level 0 06/07/21 18:50 Lab/Test Results Lab/Test Results: 06/07/21 18:50 Blood Blood Culture - Pending 06/07/21 18:50 Blood Blood Culture - Pending Laboratory Tests Range/Units 06/07/21 19:03 COVID-19 Source Nasal/Nares
--- NOTE | 2021-06-07 19:15 | DI.CT_ITS ---
Exam(s) CT CHEST PE CTA EXAM: CT CHEST PE CTA CLINICAL HISTORY: shortness of breath. TECHNIQUE: Imaging Protocol: Axial CT angiography was performed with multi-slice acquisition and mu lti-planar and/or 3D reconstructions. CONTRAST MATERIAL: Intravenous: Omnipaque 350 Contrast volume:100 mL COMPARISON: CT CHEST FOR PULMONARY EMBOLUS from 10/26/2017 FINDINGS: Tracheobronchial tree: Patent where visualized. Pulmonary parenchyma: There are bilateral ground-glass opacities and septal thickening. Subjacent in filtrates are seen associated with the effusions likely reflecting atelectasis. No architectural dis tortion. Pulmonary Arteries: No evidence of filling defect to suggest pulmonary emboli. Mediastinum and Asha: Persistent mildly enlarged mediastinal and hilar lymph nodes. There is a small hiatal hernia. Visualized thyroid gland: Unremarkable. Pleura: Small bilateral pleural effusions. No pneumothorax. Heart: Cardiomegaly. Coronary artery calcifications. No pericardial effusion. Aortic valve replace ment. Mitral valve calcification. Aorta: Thoracic aorta non-dilated. No evidence of dissection. Atherosclerosis. Upper abdomen: Unremarkable. Soft tissues: Unremarkable. Bones: Within normal limits for the patient's age.Sternal wires. IMPRESSION: 1. No evidence of pulmonary embolism, thoracic aortic dissection or aneurysm. 2. Small bilateral pleural effusions with subjacent atelectasis. 3. Enlarged mediastinal lymph nodes. They have a similar appearance compared to prior examination. 4. Ground-glass opacities with septal thickening. Cardiomegaly. CHF should be considered. Pneumoni a cannot be entirely excluded. Please correlate clinically. RADIATION DOSE DELIVERED: 476.48mGy.cm Total DLP DATA REPOSITORY: All CT scans at this facility are submitted to the National Radiology Data Registry (NRDR) Dose Index Registry (DIR) with the [employer] (ACR). RADIATION OPTIMIZATION: All CT scans at this facility use at least one of these dose optimization te chniques: automated exposure control; mA and/or kV adjustment per patient size (includes targeted exa ms where dose is matched to clinical indication); or iterative reconstruction.
[2021-06-07 19:36] LABS: Abs Immature Grans 0.07 10^3/uL (0.0-0.06); Absolute Basophil Count 0.03 10^3/uL (0.0-0.2); Absolute Lymphocyte Count 1.06 10^3/uL (1.2-3.4); Absolute Monocyte Count 1.82 10^3/uL (0.1-0.8); Absolute Neutrophil Count 12.56 10^3/uL (1.2-6.7); Basophils % 0.2; HCT 37.9 % (40.0-50.0); HGB 12.6 g/dL (13.5-17.5); Immature Grans % 0.5; Lymphocytes % 6.8; MCHC 33.2 % (32.0-36.0); MCV 93.3 fL (80-95); MPV 10.8 fL (8.0-11.0); Monocytes % 11.7; Neutrophils % 80.8; Nucleated RBC 0 %; Platelet Count 216 10^3/uL (130-400); RBC 4.06 10^6/uL (4.36-5.78); RDW 13.2 % (11.8-14.1); RDW-SD 45.2 fL; WBC 15.54 10^3/uL (4.4-10.8)
[2021-06-07] MEDS: Omnipaque 350 MG/ML 100 ML BTL IJ (19:42)
[2021-06-07] MEDS: Normal Saline - Diluent 50 ML VIAL IV (19:43)
[2021-06-07 19:49] LABS: INR 1.2 (0.9-1.1); PTT Activated 31.3 sec (21.0-27.5); Prothrombin Time 12.3 sec (9.3-11.0)
[2021-06-07 19:51] LABS: BE (Venous) -1 mmol/L (-2-3); HCO3 (Venous) 23 mmol/L (23-28); TCO2 (Venous) 24 mmol/L (24-29); pCO2 (Venous) 35 mmHg (41-51); pH (Venous) 7.44 (7.31-7.41); pO2 (Venous) 45 mmHg
[2021-06-07 19:52] LABS: O2 Sat (Venous) 82 %
[2021-06-07 20:00] LABS: ALT 37 U/L (16-63); AST 20 U/L (15-37); Albumin 3.4 g/dL (3.4-5.0); Alkaline Phosphatase 82 U/L (46-116); Anion Gap 10.4 mmol/L (3-11); BUN 27 mg/dL (7-18); Bilirubin, Total 1.1 mg/dL (0.2-1.0); CO2 25.6 mmol/L (21.0-32.0); CREATININE 1.4 mg/dL (0.70-1.30); Calcium 9.5 mg/dL (8.5-10.1); Chloride 99 mmol/L (98-107); Estimated GFR 48.64 (mL/min/1.73m2); Glucose 185 mg/dL (74-106); Potassium 4.1 mmol/L (3.5-5.1); Sodium 135 mmol/L (136-145)
[2021-06-07 20:18] LABS: Troponin I < 0.05 ng/mL (<0.06)
[2021-06-07 20:18] LABS: Diff Comment Agrees w/ Instrument; RBC Morphology Normal
[2021-06-07 20:27] LABS: Magnesium 2.1 mg/dL (1.8-2.4); NT-proBNP 4869 pg/mL (<300); TSH (W/Ref FT4) 0.69 uIU/mL (0.36-3.74)
[2021-06-07 20:35] LABS: COVID-19 PCR Negative (Negative)
[2021-06-07 20:54] LABS: Bilirubin Negative (Negative); Blood Trace-intact (Negative); Clarity Clear (Clear); Glucose Negative (Negative); Ketones Negative (Negative); Leukocyte Esterase Negative (Negative); Nitrite Negative (Negative); Specific Gravity 1.015 (1.005-1.025); Urobilinogen 0.2 EU/dL (Up TO 0.2)
--- NOTE | 2021-06-07 20:54 | DI.VRAD_ITS ---
PROCEDURE INFORMATION: Exam: CTA Chest With Contrast Exam date and time: 06/07/2021 7:16 PM Age: 80 years old Clinical indication: Shortness of breath; Prior surgery TECHNIQUE: Imaging protocol: Computed tomographic angiography of the chest with contrast. 3D rendering (Not supervised by radiologist): MIP and/or 3D reconstructed images were created by the technologist. COMPARISON: CT CHEST FOR PULMONARY EMBOLUS 10/26/2017 5:21 AM FINDINGS: Pulmonary arteries: Hounsfield attenuation of the right pulmonary artery measures 341 and therefore this study is diagnostic. No pulmonary emboli seen. Aorta: Unremarkable in size without aneurysm. There is a aortic valve replacement. Lungs: There is bilateral upper lobe patchy ground-glass opacities and interlobular septal thickening. Scarring is seen within the right middle lobe. Pleural spaces: There are small bilateral pleural effusions with minimal adjacent atelectatic lung. No pneumothorax. Mediastinum: Thyroid is normal. Heart size is upper limits of normal. No pericardial effusion or thickening. There may be a very small hiatal hernia with air-fluid level within the distal esophagus. Overlying sternotomy wires noted and mitral valve calcification. Lymph nodes: There is a 14 mm in short axis lymph node adjacent to the right mid trachea, previously measuring 15 mm, a 10 mm in short axis lymph node within the superior anterior mediastinum and a 12 mm in short axis lymph node adjacent to the left pulmonary artery. Superior abdomen: Visualized portion of the liver, spleen, pancreas, stomach and bowel normal for patient's stated age. There is stable prominence of the right adrenal gland without obvious mass consistent with possible hyperplasia. The gallbladder and kidneys were not imaged. Bones/joints: No acute osseous injury or underlying osseous mass. Anchors are seen within the right humeral head. Soft tissues: Unremarkable. IMPRESSION: 1. No pulmonary emboli. 2. Bilateral upper lobe patchy ground-glass opacities and interlobular septal thickening. 3. Small bilateral pleural effusions with minimal adjacent atelectatic lung. 4. Mediastinal lymphadenopathy. Dictated and Authenticated by: Winston Man MD. Ordering:ORA Smart MD
[2021-06-07] MEDS: Furosemide 20 MG/2 ML VIAL IVP (21:07)
[2021-06-07] MEDS: cefTRIAXone 2 GM/50 ML BAG IVPB (21:07)
[2021-06-07 21:19] LABS: Bacteria Negative HPF (Negative); Crystals Negative HPF (Negative); Epithelial Cells Negative HPF (Negative); Mucus Trace (Negative); RBC 0-2 HPF (0-2); WBC 0-2 HPF (0-5)
[2021-06-07 21:20] LABS: C & S Indicated? No
--- NOTE | 2021-06-07 21:31 | HPE_ITS ---
Date of service: 06/07/21 Time of Service: 21:31 Assessment and Plan Assessment and plan (1) Breath, shortness: Status: Acute Assessment and plan: SOB. Not entirely clear. Minimal fever and cough, modest leukocytosis and bilateral lung findings might be c/w simple pneumonia diagnosis. However there are features of the case which give me pause. First, the time course is more subacute, not typical for bacterial pneumonia; second, the ground glass opacities, the subacute course and the loss of taste and smell raise question of COVID (with false negative test, though the full vaccination status makes this a priori less likely). Finally there is a question of how much of a role an element of CHF may be playing. I think it would be kirby to pursue all three angles: empiric antibiotics, empiric diuresis, and repeat COVID testing in a few days if not clearly improving. History of Present Illness History of Present Illness Chief Complaint: SOB Narrative: 80 male, fully vaccinated, here with 2 weeks of FRANKS, weakness, worse over past few days. No fever or chills, no CP, no orthopnea. Slight intermittent cough. Does report some loss of taste and smell. In ER findings of note for temp 37.3, white count 15, BNP>4000, CTA neg PE but showing bilateral ground glass opacities as well as small bilateral pleural effusions. COVID swab is negative. Patient given Rocephin and Zithromax as well as 20 Lasix IV. I was asked to evaluate for admission. Review of Systems All systems reviewed & are unremarkable except as noted in HPI and below PFSH Medical History Adenomatous colon polyp (08/21/04) multiple small polyps, hyperplastic and at least one <4mm adenoma; neg 2009 colon Atherosclerosis of [place] coronary artery of [place] heart without angina pectoris (09/20/09) found on cath 2010 for M, valve; last stress ECHO 01/11/12 neg ECHO to Lj 3. Dental prophylaxis Atrial fibrillation Benign neoplasm of colon (08/21/04) multiple small polyps, hyperplastic and at least one <4mm adenoma; neg 2009 colon Benign paroxysmal positional vertigo BPH (benign prostatic hyperplasia) Cervical cord compression with myelopathy (04/01/15) Coronary atherosclerosis of [place] coronary vessel (09/20/09) found on cath 2009 for M, valve; last stress ECHO 01/11/12 neg ECHO to Lj 3. 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 [facility] [place]-shave biopsy done to r/o further SCC 05/06/21 [facility] shave biopsy right medial calf Vision loss of right eye Surgical History cervical diskectomy (07/01/15) anterior with fusion C4-5; [facility] [place]raction of cataract (07/28/14) Heart valve replaced (09/20/11) Bioprosthetic Aortic Valve History of cardiac cath 09/24/2019 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 Lung cancer Father , lung ca at age 70. Lung cancer Sister , circulatory problems at age 73. Essential hypertension Anemia Sister No problems noted. Social History Smoking/Tobacco Use Status: Never Smoking risk assessment performed?: Yes Alcohol Intake: current Alcohol Intake frequency: 0-2 drinks per day Alcohol type: wine Drug use: Never Substance use type: does not use Household members: spouse Housing: house Number of Children: 2 number of grandchildren: 2 Communication Needs: Corrective Lenses Education Level: other Details: PHD in Physics Do you need help understanding health information?: Rarely current occupation: retired Physic Professor Pets and animals: No What is your relationship status?: Panel score (0-1 are the most socially isolated patients): 1 What type of physical activity do you participate in: walking and other Duration: 15-30 minutes/day Frequency: 1-2 times per week Seatbelt use: always Working smoke detector in home: Yes Fire extinguisher in home: Yes Carbon monox detector in home: Yes Do you feel safe at home: Yes Do you feel safe in your relationship?: Yes Meds Allergies and Home Medications Allergies Allergy/AdvReac Type Severity Reaction Status Date / Time No Known Allergies Allergy Verified 05/03/21 11:24 Home Medications Medication Instructions Recorded Confirmed Type ascorbic acid (vitamin C) 2 tab PO DAILY 11/26/12 05/03/21 History aspirin [Aspir-81] 81 mg PO DAILY tab 11/26/12 05/03/21 History multivitamin [One Daily] 2 ea PO DAILY 11/26/12 05/03/21 History apixaban 5 mg tablet 5 mg PO BID #180 tab 11/02/20 05/03/21 Rx atorvastatin 40 mg tablet 40 mg PO HS #90 tab 11/02/20 05/03/21 Rx diltiazem HCl 360 mg capsule,24 360 mg PO DAILY #90 tab-cap 11/23/20 05/03/21 Rx hr,extended release metoprolol succinate 25 mg 25 mg PO DAILY #90 tab 12/07/20 05/03/21 Rx tablet,extended release 24 hr tamsulosin 0.4 mg capsule 0.8 mg PO DAILY 90 Days #180 01/27/21 05/03/21 Rx tab-cap torsemide 20 mg tablet See Rx Instructions PO DAILY #120 02/01/21 05/03/21 Rx tab amoxicillin 500 mg tablet 2,000 mg PO ONCE PRN #4 tab 05/28/21 Rx Exam Narrative Exam Narrative: 186/62, 98, 37.3, 22, 95% 3LNC. HEENT atraumatic; neck supple; lungs clear; heart irr/irr; abdomen soft and NT; extremities w/o edema; neuro Ox3, lucid, moves all 4s Results Labs Result diagrams: 06/07/21 19:20 06/07/21 19:21 Labs: Laboratory Results - last 24 hr 06/07/21 06/07/21 06/07/21 19:03 19:20 19:20 WBC RBC Hgb Hct MCV MCH MCHC RDW Plt Count MPV Immature Gran % Neutrophils % Lymphocytes % Monocytes % Eosinophils % Basophils % Nucleated RBC % Absolute Neutrophils Absolute Lymphocytes Absolute Monocytes Absolute Eosinophils Absolute Basophils RBC Morphology PT INR APTT VBG pH 7.44 H VBG pCO2 35 L VBG pO2 45 VBG HCO3 23 VBG Total CO2 24 VBG O2 Saturation 82 VBG Base Excess -1 Sodium Potassium Chloride Carbon Dioxide Anion Gap BUN Creatinine Estimated GFR/1.73 m2 Glucose Calcium Magnesium 2.1 Total Bilirubin AST ALT Alkaline Phosphatase Troponin I NT-Pro-B Natriuret Pep 4869 H Total Protein Albumin TSH 0.69 Urine Color Urine Clarity Urine pH Ur Specific [place] Urine Protein Urine Ketones Urine Blood Urine Nitrite Urine Bilirubin Urine Urobilinogen Ur Leukocyte Esterase Urine RBC Urine WBC Ur Epithelial Cells Urine Crystals Urine Bacteria Urine Mucus Ur Culture Indicated? Urine Glucose COVID-19 Source Nasal/Nares SARS-CoV-2 (PCR) Negative 06/07/21 06/07/21 06/07/21 19:20 19:20 19:21 WBC 15.54 H RBC 4.06 L Hgb 12.6 L Hct 37.9 L MCV 93.3 MCH 31.0 MCHC 33.2 RDW 13.2 Plt Count 216 MPV 10.8 Immature Gran % 0.5 Neutrophils % 80.8 Lymphocytes % 6.8 Monocytes % 11.7 Eosinophils % 0.0 Basophils % 0.2 Nucleated RBC % 0 Absolute Neutrophils 12.56 H Absolute Lymphocytes 1.06 L Absolute Monocytes 1.82 H Absolute Eosinophils 0.00 Absolute Basophils 0.03 RBC Morphology Normal PT 12.3 H INR 1.2 H APTT 31.3 H VBG pH VBG pCO2 VBG pO2 VBG HCO3 VBG Total CO2 VBG O2 Saturation VBG Base Excess Sodium 135 L Potassium 4.1 Chloride 99 Carbon Dioxide 25.6 Anion Gap 10.4 BUN 27 H Creatinine 1.4 H Estimated GFR/1.73 m2 48.64 Glucose 185 H Calcium 9.5 Magnesium Total Bilirubin 1.1 H AST 20 ALT 37 Alkaline Phosphatase 82 Troponin I < 0.05 NT-Pro-B Natriuret Pep Total Protein 8.0 Albumin 3.4 TSH Urine Color Urine Clarity Urine pH Ur Specific [place] Urine Protein Urine Ketones Urine Blood Urine Nitrite Urine Bilirubin Urine Urobilinogen Ur Leukocyte Esterase Urine RBC Urine WBC Ur Epithelial Cells Urine Crystals Urine Bacteria Urine Mucus Ur Culture Indicated? Urine Glucose COVID-19 Source SARS-CoV-2 (PCR) 06/07/21 20:35 WBC RBC Hgb Hct MCV MCH MCHC RDW Plt Count MPV Immature Gran % Neutrophils % Lymphocytes % Monocytes % Eosinophils % Basophils % Nucleated RBC % Absolute Neutrophils Absolute Lymphocytes Absolute Monocytes Absolute Eosinophils Absolute Basophils RBC Morphology PT INR APTT VBG pH VBG pCO2 VBG pO2 VBG HCO3 VBG Total CO2 VBG O2 Saturation VBG Base Excess Sodium Potassium Chloride Carbon Dioxide Anion Gap BUN Creatinine Estimated GFR/1.73 m2 Glucose Calcium Magnesium Total Bilirubin AST ALT Alkaline Phosphatase Troponin I NT-Pro-B Natriuret Pep Total Protein Albumin TSH Urine Color Yellow Urine Clarity Clear Urine pH 6.0 Ur Specific [place] 1.015 Urine Protein 30 H Urine Ketones Negative Urine Blood Trace-intact H Urine Nitrite Negative Urine Bilirubin Negative Urine Urobilinogen 0.2 Ur Leukocyte Esterase Negative Urine RBC 0-2 Urine WBC 0-2 Ur Epithelial Cells Negative Urine Crystals Negative Urine Bacteria Negative Urine Mucus Trace Ur Culture Indicated? No Urine Glucose Negative COVID-19 Source SARS-CoV-2 (PCR) Last Vital Signs Temp 37.3 C 06/07/21 18:50 Pulse 98 H 06/07/21 18:50 Resp 22 06/07/21 18:50 BP 186/62 H 06/07/21 18:50 Pulse Ox 95 06/07/21 18:55
[2021-06-07] MEDS: AZITHROMYCIN 500 MG in Normal Saline 250 ML 250 MG IVPB (21:47)
[2021-06-07] MEDS: Furosemide 40 MG/4 ML VIAL IVP (23:48)
[2021-06-07] MEDS: Normal Saline Flush 10 ML SYR IVP (23:49)
[2021-06-07] MEDS: Melatonin 3 MG TAB PO (23:50)
[2021-06-07] MEDS: Atorvastatin 40 MG TAB PO (23:50)
[2021-06-08 07:45] VITALS: O2SAT 91
[2021-06-08] MEDS: Furosemide 40 MG/4 ML VIAL IVP ×2 (07:56→16:06)
[2021-06-08] MEDS: Normal Saline Flush 10 ML SYR IVP ×2 (07:56→16:06)
[2021-06-08] MEDS: Aspirin E.C. 81 MG TABEC PO (07:57)
[2021-06-08] MEDS: Metoprolol CR 25 MG TABCR PO (07:57)
[2021-06-08] MEDS: dilTIAZem CD 180 MG CAPCR 360 MG PO (07:57)
[2021-06-08] MEDS: Tamsulosin 0.4 MG CAPCR 0.8 MG PO (07:57)
[2021-06-08] MEDS: Apixaban 5 MG TAB PO ×2 (07:57→20:01)
[2021-06-08 08:09] VITALS: BP 146/75; PULSE 119; RESP 20; TEMP 37.5; O2SAT 91
[2021-06-08 08:24] LABS: Abs Immature Grans 0.09 10^3/uL (0.0-0.06); Absolute Basophil Count 0.03 10^3/uL (0.0-0.2); Absolute Lymphocyte Count 1.32 10^3/uL (1.2-3.4); Absolute Monocyte Count 1.81 10^3/uL (0.1-0.8); Absolute Neutrophil Count 12.09 10^3/uL (1.2-6.7); Basophils % 0.2; HCT 35.8 % (40.0-50.0); HGB 11.9 g/dL (13.5-17.5); Immature Grans % 0.6; Lymphocytes % 8.6; MCHC 33.2 % (32.0-36.0); MCV 93.2 fL (80-95); MPV 10.8 fL (8.0-11.0); Monocytes % 11.8; Neutrophils % 78.8; Nucleated RBC 0 %; Platelet Count 213 10^3/uL (130-400); RBC 3.84 10^6/uL (4.36-5.78); RDW 13.2 % (11.8-14.1); RDW-SD 45.6 fL; WBC 15.34 10^3/uL (4.4-10.8)
[2021-06-08 08:25] VITALS: BP 148/73; PULSE 60; RESP 16; TEMP 36.2; O2SAT 90
[2021-06-08 08:49] LABS: Diff Comment Diff Reviewed; RBC Morphology Normal
[2021-06-08 10:11] LABS: Procalcitonin 0.2 ng/mL
--- NOTE | 2021-06-08 12:12 | INITIAL_ITS ---
- If Service Date Differs Date of service: 06/08/21 Time of Service: 12:12 Care Management Initial Assess REASON FOR HOSPITALIZATION:: SOB PAST MEDICAL HISTORY/PAST SURGICAL HISTORY:: Adenomatous colon polyp (08/21/04). multiple small polyps, hyperplastic and at least one <4mm adenoma; neg 2009 colon. Atherosclerosis of [place] coronary artery of [place] heart without angina pectoris (09/20/09). found on cath 2009 for M, valve; last stress ECHO 01/11/12 neg ECHO to Lj 3. Dental prophylaxis. Atrial fibrillation. Benign neoplasm of colon (08/21/04). multiple small polyps, hyperplastic and at least one <4mm adenoma; neg 2010 colon. Benign paroxysmal positional vertigo. BPH (benign prostatic hyperplasia). Cervical cord compression with myelopathy (04/01/15). Coronary atherosclerosis of [place] coronary vessel (09/20/09). found on cath 2009 for M, valve; last stress ECHO 01/11/12 neg ECHO to Lj 3. Dental prophylaxis. Diastolic heart failure. Drug-induced gynecomastia. Essential hypertension (12/10/12). Gastroesophageal reflux disease (12/20/13). Hyperlipidemia (09/20/11). GOAL <70 LDL; MAX 138 PRIOR TO RX. 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 Lower urinary tract symptoms (04/08/16). NAION (non-arteritic anterior ischemic optic neuropathy), right eye. Need for prophylactic antibiotic (04/08/16). Due to mechanical heart valve. Orthostatic hypotension (04/01/15). 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 04/10/20 [facility] Derm Dr Cruz. 10/13/20-shave biopsy done to r/o further SCC. 05/06/21 [facility] shave biopsy right medial calf. Vision loss of right eye. Surgical History . cervical diskectomy (07/01/15). anterior with fusion C4-5; [facility]. Extraction of cataract (07/28/14). Heart valve replaced (09/20/11). Bioprosthetic Aortic Valve. History of cardiac cath. 09/24/2019. 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 Bioprosthetic Aortic Valve; yearly ECHO & [place] f/u in Apr. Replacement of aortic valve (01/19/10). Bioprosthetic Valve, [facility]; [place] f/u every Apr. 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 [facility]. R knee PREVIOUS FUNCTIONAL STATUS/SOCIAL/FAMILY SUPPORTS:: João resides in [facility] with his , Priyanka. He is independent at baseline in the community. ADVANCE DIRECTIVES:: None on file Has patient been provided with info about the portal/API?: Yes Did the patient sign up for the portal?: Yes (Previously) CODE STATUS:: DNR/DNI INSURANCE COVERAGE / FINANCIAL ISSUES:: [employer]. Medicare PRIMARY CARE PHYSICIAN:: Robert Baltazar POTENTIAL DISCHARGE NEEDS:: Follow up appointments. PATIENT/FAMILY EDUCATION NEEDS:: Review of discharge instructions, discuss Ask Me Three. ANTICIPATED BARRIERS TO DISCHARGE:: None identified. TRANSPORTATION:: Via private vehicle with , Priyanka. PLAN:: Maximilian will return home when ready per MD, he will follow up with his PCP and plan of care as prescribed. He will transport via private vehicle with his , Priyanka.
--- NOTE | 2021-06-08 12:32 | PGE_ITS ---
Date of Service Date of service: 06/08/21 Time of Service: 12:32 Assessment and Plan Assessment and plan (1) CAP (community acquired pneumonia): Status: Acute Assessment and plan: day 2 azithromycin/ceftriaxone no fever, wean oxygen\ pulmonary toileting covid x2 negative. (2) Vomiting: Status: Acute Assessment and plan: diet changed to clear liquids antiemetics will check flat and upright abd. (3) Atrial fibrillation: Status: Chronic Assessment and plan: rate controlled continue home medication anticoagulated Qualifiers: Atrial fibrillation type: paroxysmal Qualified Code(s): I48.0 - Paroxysmal atrial fibrillation (4) Diastolic heart failure: Status: Acute Assessment and plan: last echo > 1 year ago. will check echo continue diuresis monitor I&O and weights. discussed with Dr Lundberg Qualifiers: Heart failure chronicity: chronic Qualified Code(s): I50.32 - Chronic diastolic (congestive) heart failure Subjective Subjective Patient reports: vomiting Interval history since last seen: vomited this am, requiring 4 l/nc to maintain sat of 90% Exam Const General: cooperative, healthy appearing, comfortable and no acute distress Nutritional Appearance: average body habitus Orientation: alert, awake and oriented x3 HENMT Head: normal to inspection, normocephalic and atraumatic Mouth: oral mucosae normal Neck Neck: no JVD Resp Effort & Inspection: normal respiratory effort Auscultation: clear to auscultation bilaterally Cardio Rate: regular rate Rhythm: abnormal rhythm (afib) irregularly irregular GI Inspection: distended Palpation: soft and nontender Percussion: tympanic to percussion Auscultation: hyperactive bowel sounds Skin Lesions: no lesions Rashes: no rashes Neuro General: patient alert, patient awake, patient oriented x3, tone normal, moves all extremities and no focal motor deficits Extrem General: no pedal edema Psych Appearance: grossly normal Mental Status: mental status grossly normal Speech and Movement: speech and movement normal Mood: congruent mood Affect: normal affect Objective Last Vital Signs Temp 36.2 C L 06/08/21 08:25 Pulse 60 06/08/21 08:25 Resp 16 06/08/21 08:25 BP 148/73 H 06/08/21 08:25 Pulse Ox 90 L 06/08/21 08:25 Laboratory Results - last 24 hr 06/07/21 06/07/21 06/07/21 19:03 19:20 19:20 WBC RBC Hgb Hct MCV MCH MCHC RDW Plt Count MPV Immature Gran % Neutrophils % Lymphocytes % Monocytes % Eosinophils % Basophils % Nucleated RBC % Absolute Neutrophils Absolute Lymphocytes Absolute Monocytes Absolute Eosinophils Absolute Basophils RBC Morphology PT INR APTT VBG pH 7.44 H VBG pCO2 35 L VBG pO2 45 VBG HCO3 23 VBG Total CO2 24 VBG O2 Saturation 82 VBG Base Excess -1 Sodium Potassium Chloride Carbon Dioxide Anion Gap BUN Creatinine Estimated GFR/1.73 m2 Glucose Calcium Magnesium 2.1 Total Bilirubin AST ALT Alkaline Phosphatase Troponin I NT-Pro-B Natriuret Pep 4869 H Total Protein Albumin Procalcitonin TSH 0.69 Urine Color Urine Clarity Urine pH Ur Specific [place] Urine Protein Urine Ketones Urine Blood Urine Nitrite Urine Bilirubin Urine Urobilinogen Ur Leukocyte Esterase Urine RBC Urine WBC Ur Epithelial Cells Urine Crystals Urine Bacteria Urine Mucus Ur Culture Indicated? Urine Glucose COVID-19 Source Nasal/Nares SARS-CoV-2 (PCR) Negative 06/07/21 06/07/21 06/07/21 19:20 19:20 19:21 WBC 15.54 H RBC 4.06 L Hgb 12.6 L Hct 37.9 L MCV 93.3 MCH 31.0 MCHC 33.2 RDW 13.2 Plt Count 216 MPV 10.8 Immature Gran % 0.5 Neutrophils % 80.8 Lymphocytes % 6.8 Monocytes % 11.7 Eosinophils % 0.0 Basophils % 0.2 Nucleated RBC % 0 Absolute Neutrophils 12.56 H Absolute Lymphocytes 1.06 L Absolute Monocytes 1.82 H Absolute Eosinophils 0.00 Absolute Basophils 0.03 RBC Morphology Normal PT 12.3 H INR 1.2 H APTT 31.3 H VBG pH VBG pCO2 VBG pO2 VBG HCO3 VBG Total CO2 VBG O2 Saturation VBG Base Excess Sodium 135 L Potassium 4.1 Chloride 99 Carbon Dioxide 25.6 Anion Gap 10.4 BUN 27 H Creatinine 1.4 H Estimated GFR/1.73 m2 48.64 Glucose 185 H Calcium 9.5 Magnesium Total Bilirubin 1.1 H AST 20 ALT 37 Alkaline Phosphatase 82 Troponin I < 0.05 NT-Pro-B Natriuret Pep Total Protein 8.0 Albumin 3.4 Procalcitonin TSH Urine Color Urine Clarity Urine pH Ur Specific [place] Urine Protein Urine Ketones Urine Blood Urine Nitrite Urine Bilirubin Urine Urobilinogen Ur Leukocyte Esterase Urine RBC Urine WBC Ur Epithelial Cells Urine Crystals Urine Bacteria Urine Mucus Ur Culture Indicated? Urine Glucose COVID-19 Source SARS-CoV-2 (PCR) 06/07/21 06/07/21 06/08/21 20:35 21:49 08:00 WBC 15.34 H RBC 3.84 L Hgb 11.9 L Hct 35.8 L MCV 93.2 MCH 31.0 MCHC 33.2 RDW 13.2 Plt Count 213 MPV 10.8 Immature Gran % 0.6 Neutrophils % 78.8 Lymphocytes % 8.6 Monocytes % 11.8 Eosinophils % 0.0 Basophils % 0.2 Nucleated RBC % 0 Absolute Neutrophils 12.09 H Absolute Lymphocytes 1.32 Absolute Monocytes 1.81 H Absolute Eosinophils 0.00 Absolute Basophils 0.03 RBC Morphology Normal PT INR APTT VBG pH VBG pCO2 VBG pO2 VBG HCO3 VBG Total CO2 VBG O2 Saturation VBG Base Excess Sodium Potassium Chloride Carbon Dioxide Anion Gap BUN Creatinine Estimated GFR/1.73 m2 Glucose Calcium Magnesium Total Bilirubin AST ALT Alkaline Phosphatase Troponin I Cancelled NT-Pro-B Natriuret Pep Total Protein Albumin Procalcitonin TSH Urine Color Yellow Urine Clarity Clear Urine pH 6.0 Ur Specific [place] 1.015 Urine Protein 30 H Urine Ketones Negative Urine Blood Trace-intact H Urine Nitrite Negative Urine Bilirubin Negative Urine Urobilinogen 0.2 Ur Leukocyte Esterase Negative Urine RBC 0-2 Urine WBC 0-2 Ur Epithelial Cells Negative Urine Crystals Negative Urine Bacteria Negative Urine Mucus Trace Ur Culture Indicated? No Urine Glucose Negative COVID-19 Source SARS-CoV-2 (PCR) 06/08/21 08:00 WBC RBC Hgb Hct MCV MCH MCHC RDW Plt Count MPV Immature Gran % Neutrophils % Lymphocytes % Monocytes % Eosinophils % Basophils % Nucleated RBC % Absolute Neutrophils Absolute Lymphocytes Absolute Monocytes Absolute Eosinophils Absolute Basophils RBC Morphology PT INR APTT VBG pH VBG pCO2 VBG pO2 VBG HCO3 VBG Total CO2 VBG O2 Saturation VBG Base Excess Sodium Potassium Chloride Carbon Dioxide Anion Gap BUN Creatinine Estimated GFR/1.73 m2 Glucose Calcium Magnesium Total Bilirubin AST ALT Alkaline Phosphatase Troponin I NT-Pro-B Natriuret Pep Total Protein Albumin Procalcitonin 0.2 TSH Urine Color Urine Clarity Urine pH Ur Specific [place] Urine Protein Urine Ketones Urine Blood Urine Nitrite Urine Bilirubin Urine Urobilinogen Ur Leukocyte Esterase Urine RBC Urine WBC Ur Epithelial Cells Urine Crystals Urine Bacteria Urine Mucus Ur Culture Indicated? Urine Glucose COVID-19 Source SARS-CoV-2 (PCR)
[2021-06-08 13:51] LABS: Source Nasal/Nares
[2021-06-08 14:46] LABS: COVID-19 PCR Negative (Negative)
[2021-06-08 16:12] VITALS: BP 140/66; PULSE 98; RESP 18; TEMP 38.1; O2SAT 90
[2021-06-08] MEDS: Acetaminophen 325 MG TAB 650 MG PO ×2 (16:23→22:55)
[2021-06-08 20:00] VITALS: TEMP 37.5
[2021-06-08] MEDS: cefTRIAXone 1 GM/50 ML BAG IVPB (20:01)
[2021-06-08] MEDS: Atorvastatin 40 MG TAB PO (22:55)
[2021-06-08] MEDS: AZITHROMYCIN 250 MG in Normal Saline 250 ML IVPB (22:55)
[2021-06-08 23:40] VITALS: BP 133/65; PULSE 88; RESP 18; TEMP 37.2; O2SAT 90
[2021-06-09 07:16] LABS: Abs Immature Grans 0.11 10^3/uL (0.0-0.06); Absolute Lymphocyte Count 0.55 10^3/uL (1.2-3.4); Basophils % 0.1; HCT 35.5 % (40.0-50.0); HGB 11.8 g/dL (13.5-17.5); Immature Grans % 0.7; Lymphocytes % 3.4; MCH 30.6 pg (27.0-33.0); MCHC 33.2 % (32.0-36.0); MCV 92.2 fL (80-95); MPV 11.2 fL (8.0-11.0); Monocytes % 8.5; Neutrophils % 87.3; Nucleated RBC 0 %; Platelet Count 240 10^3/uL (130-400); RBC 3.85 10^6/uL (4.36-5.78); RDW 13.4 % (11.8-14.1); RDW-SD 45.3 fL
[2021-06-09 07:28] LABS: Absolute Basophil Count 0.02 10^3/uL (0.0-0.2); Absolute Monocyte Count 1.38 10^3/uL (0.1-0.8); Absolute Neutrophil Count 14.14 10^3/uL (1.2-6.7)
[2021-06-09 07:39] VITALS: BP 148/71; PULSE 102; RESP 18; TEMP 38.5; O2SAT 93
[2021-06-09 07:41] LABS: Anion Gap 7.6 mmol/L (3-11); BUN 29 mg/dL (7-18); CO2 29.4 mmol/L (21.0-32.0); CREATININE 1.3 mg/dL (0.70-1.30); Chloride 102 mmol/L (98-107); Estimated GFR 52.98 (mL/min/1.73m2); Glucose 151 mg/dL (74-106); NT-proBNP 4579 pg/mL (<300); Potassium 3.6 mmol/L (3.5-5.1); Sodium 139 mmol/L (136-145)
[2021-06-09 07:45] VITALS: O2SAT 93
[2021-06-09] MEDS: Normal Saline Flush 10 ML SYR IVP ×2 (07:46→16:18)
[2021-06-09] MEDS: Furosemide 40 MG/4 ML VIAL IVP ×2 (07:46→16:18)
[2021-06-09] MEDS: Aspirin E.C. 81 MG TABEC PO (07:47)
[2021-06-09] MEDS: Acetaminophen 325 MG TAB 650 MG PO (07:47)
[2021-06-09] MEDS: Tamsulosin 0.4 MG CAPCR 0.8 MG PO (07:47)
[2021-06-09] MEDS: dilTIAZem CD 180 MG CAPCR 360 MG PO (07:47)
[2021-06-09] MEDS: Metoprolol CR 25 MG TABCR PO (07:47)
[2021-06-09] MEDS: Apixaban 5 MG TAB PO ×2 (07:47→20:24)
--- NOTE | 2021-06-09 08:45 | DI.RAD_ITS ---
Exam(s) XR ABD FLAT UPRIGHT PA CHEST EXAM: 2D digital imaging was performed. CLINICAL HISTORY: vomiting,. COMPARISON: CR,XR XR CHEST 2V PA LATERAL from 11/02/2019 CR,XR XR CHEST 2V PA LATERAL from 11/02/[address] CHEST PE CTA from 06/07/[address] CHEST PE CTA from 06/07/2021 TECHNIQUE: Supine and upright abdomen and PA chest views were performed. Four images were obtained. FINDINGS: BOWEL GAS PATTERN: Nondistended. No free air. No evidence of obstruction. There is a small to mode rate amount of retained stool throughout the colon. CALCIFICATIONS: No radiopaque calcifications. OSSEOUS STRUCTURES: Normal for age. OTHER FINDINGS: None. LUNGS bilateral pulmonary infiltrates are present. The findings appear to have progressed particular ly in the upper lobes compared to the CT scan from 06/07/2021. No pleural abnormality seen. The lung s appear hyper inflated consistent with underlying COPD. HEART: No cardiomegaly. There is an aortic valve replacement. Pulmonary vasculature is within [place] l limits. MEDIASTINUM: Normal. OTHER FINDINGS: None. IMPRESSION: 1. Nonobstructive bowel gas pattern. 2. Slight worsening of the pulmonary infiltrates particularly in the upper lobes since 06/07/2021. 3. No free air. DATA REPOSITORY: RADIATION DOSE DELIVERED:
[2021-06-09] MEDS: guaiFENesin 600 MG TABCR PO ×2 (10:01→20:24)
[2021-06-09] MEDS: CEFEPIME 2 GM in Normal Saline 100 ML IVPB ×2 (10:01→22:46)
--- NOTE | 2021-06-09 11:02 | PDOC.CMPRO ---
- If Service Date Differs Date of service: 06/09/21 Time of Service: 11:02 Care Management Progress Note S/O: Maximilian continues to be closely monitored and treated. He was out of his room when CM attempted to meet with him. CM continues to follow. A: 80 year old admitted to [facility] 06/07/21 for SOB P: Maximilian will return home when ready per MD, he will follow up with his PCP and plan of care as prescribed. He will transport via private vehicle with his , Priyanka.
--- NOTE | 2021-06-09 12:32 | W.NUTRFU ---
Date of service: 06/09/21 Time of Service: 12:32 Nutritional Follow up NOTE: 65yo male from [facility], admitted for exacerbation of COPD and related RLL PNA. Meds: Insulin Aspart protocol with additional 10 units qid at meals and insulin Glargine 20 units daily; Ketorolac, levoflaxacin, Lisinopril and PRN polyethylene glycol/milk of magnesia/Mylanta. PMH significant for DMII ? pt states dx 20 years ago and takes metformin and insulin at home through PCP. Pt reports constipation with only a small BM last evening that offered a little pressure relief. Julio verbalized understanding of his HH/DM diet order while in the hospital and reports fair appetite and intake. No significant change from UBW of 184 pounds. Current BMI (25.2) wnl. No reported concerns with dentition/chewing/swallowing. Estimated nutrition needs: 2059kcals (REEX1.3), 95g protein (1.2g/kg) and 2059mL fluid (1mL/kcal). Diagnosis: No nutrition diagnosis at this time Intervention: educated pt on helpful tips re: constipation ? choosing high fiber food choices, adequate hydration and progressive physical activity as medically advised. Evaluation/monitoring: Will monitor pt for changes in weight, nutrition-related labs and po intake. Time Spent in Nutritional Counseling and Treatment: 15 min
--- NOTE | 2021-06-09 12:45 | W.PM.PROGNOT ---
Date of Service Date of service: 06/09/21 Time of Service: 12:45 Assessment and Plan Assessment and plan (1) CAP (community acquired pneumonia): Status: Acute Assessment and plan: day 3 azithromycin/ceftriaxone no with fever and rising white count. will d/c ceftriaxone and add cefepime. pulmonary toileting covid x2 negative. (2) Vomiting: Status: Acute Assessment and plan: diet changed to clear liquids antiemetics will check flat and upright abd. (3) Atrial fibrillation: Status: Chronic Assessment and plan: rate controlled continue home medication anticoagulated Qualifiers: Atrial fibrillation type: paroxysmal Qualified Code(s): I48.0 - Paroxysmal atrial fibrillation (4) Diastolic heart failure: Status: Acute Assessment and plan: last echo > 1 year ago. will check echo continue diuresis monitor I&O and weights. discussed with Dr Lundberg Qualifiers: Heart failure chronicity: chronic Qualified Code(s): I50.32 - Chronic diastolic (congestive) heart failure Subjective Subjective Patient reports: tolerating liquids well, voiding w/o difficulty, bowel movement, nausea and fever; denies vomiting and shortness of breath Interval history since last seen: patient wants to try advancing diet. no vomiting no abdominal pain Exam Const General: cooperative, healthy appearing, comfortable and no acute distress Nutritional Appearance: average body habitus Orientation: alert, awake and oriented x3 HENMT Head: normal to inspection, normocephalic and atraumatic Mouth: oral mucosae normal Neck Neck: no JVD Resp Effort & Inspection: normal respiratory effort Auscultation: clear to auscultation bilaterally Cardio Rate: regular rate Rhythm: abnormal rhythm (afib) irregularly irregular GI Inspection: distended Palpation: soft and nontender Percussion: tympanic to percussion Auscultation: hyperactive bowel sounds Skin Lesions: no lesions Rashes: no rashes Neuro General: patient alert, patient awake, patient oriented x3, tone normal, moves all extremities and no focal motor deficits Extrem General: no pedal edema Psych Appearance: grossly normal Mental Status: mental status grossly normal Speech and Movement: speech and movement normal Mood: congruent mood Affect: normal affect Objective Last Vital Signs Temp 38.5 C H 06/09/21 07:39 Pulse 102 H 06/09/21 07:39 Resp 18 06/09/21 07:39 BP 148/71 H 06/09/21 07:39 Pulse Ox 93 06/09/21 07:45 Laboratory Results - last 24 hr 06/08/21 06/09/21 06/09/21 13:40 06:50 06:50 WBC 16.20 H RBC 3.85 L Hgb 11.8 L Hct 35.5 L MCV 92.2 MCH 30.6 MCHC 33.2 RDW 13.4 Plt Count 240 MPV 11.2 H Immature Gran % 0.7 Neutrophils % 87.3 Lymphocytes % 3.4 Monocytes % 8.5 Eosinophils % 0.0 Basophils % 0.1 Nucleated RBC % 0 Absolute Neutrophils 14.14 H Absolute Lymphocytes 0.55 L Absolute Monocytes 1.38 H Absolute Eosinophils 0.00 Absolute Basophils 0.02 Sodium 139 Potassium 3.6 Chloride 102 Carbon Dioxide 29.4 Anion Gap 7.6 BUN 29 H Creatinine 1.3 Estimated GFR/1.73 m2 52.98 Glucose 151 H Calcium 9.0 NT-Pro-B Natriuret Pep 4579 H COVID-19 Source Nasal/Nares SARS-CoV-2 (PCR) Negative
[2021-06-09 15:30] VITALS: BP 137/77; PULSE 89; RESP 18; TEMP 36.7; O2SAT 96
[2021-06-09 20:20] VITALS: O2SAT 94
[2021-06-09] MEDS: Atorvastatin 40 MG TAB PO (22:46)
[2021-06-09 23:50] VITALS: BP 138/89; PULSE 100; RESP 20; TEMP 36.4; O2SAT 94
[2021-06-09] MEDS: AZITHROMYCIN 250 MG in Normal Saline 250 ML IVPB (23:53)
[2021-06-10] VITALS (7 sets, daily range): BP systolic 126–136; BP diastolic 63–77; PULSE 64–115; RESP 17–22; TEMP 36.1–37.9; O2SAT 92–93
[2021-06-10] MEDS: Acetaminophen 325 MG TAB 650 MG PO ×2 (06:28→19:59)
[2021-06-10 07:50] LABS: Abs Immature Grans 0.12 10^3/uL (0.0-0.06); Absolute Basophil Count 0.02 10^3/uL (0.0-0.2); Absolute Monocyte Count 1.55 10^3/uL (0.1-0.8); Basophils % 0.1; HCT 33.4 % (40.0-50.0); HGB 11.2 g/dL (13.5-17.5); Immature Grans % 0.7; Lymphocytes % 4.7; MCH 30.8 pg (27.0-33.0); MCHC 33.5 % (32.0-36.0); MCV 91.8 fL (80-95); MPV 11.2 fL (8.0-11.0); Monocytes % 9.3; Neutrophils % 85.2; Nucleated RBC 0 %; Platelet Count 260 10^3/uL (130-400); RBC 3.64 10^6/uL (4.36-5.78); RDW 13.4 % (11.8-14.1); RDW-SD 45.5 fL; WBC 16.67 10^3/uL (4.4-10.8)
[2021-06-10 07:54] LABS: Absolute Lymphocyte Count 0.78 10^3/uL (1.2-3.4)
[2021-06-10 08:03] LABS: Anion Gap 11.6 mmol/L (3-11); BUN 32 mg/dL (7-18); CO2 26.4 mmol/L (21.0-32.0); CREATININE 1.2 mg/dL (0.70-1.30); Calcium 8.9 mg/dL (8.5-10.1); Chloride 101 mmol/L (98-107); Estimated GFR 58.11 (mL/min/1.73m2); Glucose 162 mg/dL (74-106); Potassium 3.2 mmol/L (3.5-5.1); Sodium 139 mmol/L (136-145)
[2021-06-10] MEDS: Metoprolol CR 25 MG TABCR PO (08:36)
[2021-06-10] MEDS: Furosemide 40 MG/4 ML VIAL IVP ×2 (08:36→16:45)
[2021-06-10] MEDS: Normal Saline Flush 10 ML SYR IVP ×2 (08:36→16:45)
[2021-06-10] MEDS: Apixaban 5 MG TAB PO ×2 (08:36→19:59)
[2021-06-10] MEDS: dilTIAZem CD 180 MG CAPCR 360 MG PO (08:36)
[2021-06-10] MEDS: guaiFENesin 600 MG TABCR PO ×2 (08:37→19:58)
[2021-06-10] MEDS: Aspirin E.C. 81 MG TABEC PO (08:37)
[2021-06-10] MEDS: Tamsulosin 0.4 MG CAPCR 0.8 MG PO (08:37)
[2021-06-10 10:08] LABS: Magnesium 2.5 mg/dL (1.8-2.4)
[2021-06-10] MEDS: CEFEPIME 2 GM in Normal Saline 100 ML IVPB ×2 (10:43→21:28)
[2021-06-10] MEDS: Potassium Chloride 20 MEQ TABCR PO ×2 (12:18→16:45)
--- NOTE | 2021-06-10 14:02 | DI.RAD_ITS ---
Exam(s) XR CHEST 2V PA LATERAL EXAM: XR CHEST 2V PA LATERAL CLINICAL HISTORY: pneumonia, ongoing hypoxia. TECHNIQUE: 2D digital imaging was performed. COMPARISON: CT CT CHEST PE CTA from 06/07/2021 CR XR ABD FLAT UPRIGHT PA CHEST from 06/09/2021 FINDINGS: Again noted are sternotomy wires and a prosthetic aortic valve. Heart size is upper normal. The mediastinum is not widened. There is no radiographic improvement in the extensive bilateral upper lung field infiltrates. There is also increasing infiltrate in the right hip parahilar region. Mild blunting of the costophrenic a ngles noted consistent with small bilateral pleural effusions. IMPRESSION: No radiographic improvement in the bilateral extensive pulmonary infiltrates. Also small pleural eff usions. Findings are most probably infectious. DATA REPOSITORY: RADIATION DOSE DELIVERED:
--- NOTE | 2021-06-10 15:45 | NT_ITS ---
Date of service: 06/10/21 Time of Service: 15:45 PT Notes Visit Reasons: Shortness of breath Was agreeable to PT evaluation initially but complained of being nauseated right before attempt at sitting him up was made and asked for the emesis bag. No vomitting episode but patient requested that he be seen tomorrow morning instead. Will see patient for evalaution tomorrow morning, as ordered. Thank you for the opportunity to participate in the care of this patient. Ilda Sevilla PT, DPT, CLT [facility] [place], [place]
--- NOTE | 2021-06-10 18:30 | PDOC.CMPRO ---
Care Management Progress Note S/O: Maximilian continues to be closely monitored and treated. CM requested PT consult as RN report stated FWW with one assist. PT attempted to evaluate him today, but he became nauseous and was unable to participate. CM continues to follow. A: 80 year old admitted to [facility] 06/07/21 for SOB P: Maximilian will return home when ready per MD, he will follow up with his PCP and plan of care as prescribed. He will transport via private vehicle with his , Priyanka
[2021-06-10] MEDS: Metoprolol 25 MG TAB PO (19:59)
[2021-06-10] MEDS: Atorvastatin 40 MG TAB PO (21:28)
[2021-06-10] MEDS: AZITHROMYCIN 250 MG in Normal Saline 250 ML IVPB (22:36)
[2021-06-11] VITALS (9 sets, daily range): BP systolic 126–156; BP diastolic 70–80; PULSE 91–120; RESP 18–28; TEMP 37.4–38.1; O2SAT 88–96
--- NOTE | 2021-06-11 | DI.CT_ITS ---
Exam(s) CT CHEST/ABD/PEL W EXAM: CT CHEST/ABD/PEL W CLINICAL HISTORY: elevated enzymes, SOB with sitting up. TECHNIQUE: Imaging Protocol: Axial computed tomography images with coronal and sagittal reformatted images were created and reviewed CONTRAST MATERIAL: Intravenous: Omnipaque 350 Contrast volume:100 ml Oral: no COMPARISON: CT CT CHEST PE CTA from 06/07/[address] CHEST PE CTA from 06/07/2021 CR XR CHEST 2V PA LATERAL from 06/10/2021 CR XR CHEST 2V PA LATERAL from 06/10/2021 FINDINGS: CHEST: Tracheobronchial tree: Patent where visualized. Mediastinum and Asha: No dominant adenopathy or fluid collection. Pulmonary parenchyma: Significant interval worsening of bilateral upper lobe infiltrates. Basilar de pendent atelectasis. Pleura: Bilateral pleural effusions with mild increase in size when compared with the previous exam. Lymph nodes: Stable mildly enlarged hilar and mediastinal lymph nodes. Aorta: Thoracic portion non-dilated. Heart: Status post aortic valve replacement. Mitral valve and coronary arteries are heavily calcifie d. There. Dilated bilateral atria and left ventricle. Bones: Unremarkable for age. No lytic or blastic lesions. Sternal wires. Small hiatal hernia. ABDOMEN: Liver: Normal density. No measurable mass. Gallbladder and biliary tract: No radiodense calculus or dilation. Pancreas: Normal density, no abnormal calcifications or inflammatory process. Spleen: Normal. Kidneys: Normal size, contour and axis. No radiodense stones or obstructive uropathy. No masses seen. Adrenal glands: No masses seen. Aorta: Abdominal portion non-dilated. Atherosclerotic changes. Lymph nodes: Within normal limits. Soft tissues: Unremarkable. PELVIS: Bladder: Symmetric distention, no gross wall thickening. Bowel: Sigmoid diverticulosis. No obstruction or bowel wall thickening. Peritoneal cavity: No ascites, collection or mesenteric inflammatory response. Bones: Degenerative disc changes and facet degenerative changes.. Reproductive organs: Markedly enlarged prostate. IMPRESSION: Interval worsening bilateral upper lobe pulmonary infiltrates. Mild interval increase in bilateral p leural effusions. No acute abnormality in the abdomen or pelvis.. RADIATION DOSE DELIVERED: 1,466.23mGy.cm Total DLP DATA REPOSITORY: All CT scans at this facility are submitted to the National Radiology Data Registry (NRDR) Dose Index Registry (DIR) with the [employer] (ACR). RADIATION OPTIMIZATION: All CT scans at this facility use at least one of these dose optimization te chniques: automated exposure control; mA and/or kV adjustment per patient size (includes targeted exa ms where dose is matched to clinical indication); or iterative reconstruction.
[2021-06-11] MEDS: Acetaminophen 325 MG TAB 650 MG PO (06:49)
[2021-06-11] MEDS: Furosemide 40 MG/4 ML VIAL IVP ×3 (06:49→16:16)
[2021-06-11] MEDS: Tamsulosin 0.4 MG CAPCR 0.8 MG PO (08:20)
[2021-06-11] MEDS: Potassium Chloride 20 MEQ TABCR PO ×3 (08:21→16:16)
[2021-06-11] MEDS: Apixaban 5 MG TAB PO ×2 (08:21→21:10)
[2021-06-11] MEDS: Metoprolol 25 MG TAB PO ×2 (08:21→21:10)
[2021-06-11] MEDS: Aspirin E.C. 81 MG TABEC PO (08:21)
[2021-06-11] MEDS: guaiFENesin 600 MG TABCR PO ×2 (08:21→21:10)
[2021-06-11] MEDS: dilTIAZem CD 180 MG CAPCR 360 MG PO (08:21)
[2021-06-11] MEDS: Normal Saline Flush 10 ML SYR IVP ×3 (08:22→20:38)
[2021-06-11 08:33] LABS: Abs Immature Grans 0.13 10^3/uL (0.0-0.06); Absolute Basophil Count 0.01 10^3/uL (0.0-0.2); Absolute Eosinophil Count 0.01 10^3/uL (0.0-0.7); Absolute Lymphocyte Count 0.52 10^3/uL (1.2-3.4); Basophils % 0.1; Eosinophils % 0.1; HCT 32.2 % (40.0-50.0); HGB 10.8 g/dL (13.5-17.5); Immature Grans % 0.9; Lymphocytes % 3.5; MCH 30.8 pg (27.0-33.0); MCHC 33.5 % (32.0-36.0); MCV 91.7 fL (80-95); MPV 10.9 fL (8.0-11.0); Monocytes % 7.9; Neutrophils % 87.5; Nucleated RBC 0 %; Platelet Count 294 10^3/uL (130-400); RBC 3.51 10^6/uL (4.36-5.78); RDW 13.3 % (11.8-14.1); RDW-SD 44.4 fL; WBC 14.89 10^3/uL (4.4-10.8)
[2021-06-11 08:35] LABS: Absolute Monocyte Count 1.18 10^3/uL (0.1-0.8); Absolute Neutrophil Count 13.03 10^3/uL (1.2-6.7)
--- NOTE | 2021-06-11 09:32 | IN_ITS ---
Date of service: 06/11/21 Time of Service: 09:32 PT Notes Visit Reasons: Shortness of breath Physical Therapy Inpatient Initial Evaluation Date: 06/11/2021 Referring Doctor: Thao Gomes NP PT Orders: PT CONSULT: Eval/treat Precautions: Fall. Standard. Activity as tolerated. Patient Profile/Admitting Diagnosis: Maximilian is an 80-year-old male who presented to the ED on 06/07/2021 due to 2 weeks worth of generalized fatigue, shortness of breath, cough, and loss of taste and smell. COVID-19 negative. Patient is diagnosed with community-acquired pneumonia, vomiting, atrial fibrillation, and diastolic heart failure. PMHX: Medical History Adenomatous colon polyp (08/21/04) multiple small polyps, hyperplastic and at least one <4mm adenoma; neg 2009 colon Atherosclerosis of kenaitze coronary artery of ken[place]ze heart without angina pectoris (09/20/09) found on cath 2009 for M, valve; last stress ECHO 01/11/12 neg ECHO to Lj 3. Dental prophylaxis Atrial fibrillation Benign neoplasm of colon (08/21/04) multiple small polyps, hyperplastic and at least one <4mm adenoma; neg 2009 colon Benign paroxysmal positional vertigo BPH (benign prostatic hyperplasia) Cervical cord compression with myelopathy (04/01/15) Coronary atherosclerosis of kenaitze coronary vessel (09/20/09) found on cath 2009 for M, valve; last stress ECHO 01/11/12 neg ECHO to Lj 3. 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 [facility] [place] 10/13/20-shave biopsy done to r/o further SCC 05/06/21 [facility] shave biopsy right medial calf Vision loss of right eye Surgical History cervical diskectomy (07/01/15) anterior with fusion C4-5; [facility] Extraction of cataract (07/28/14) Heart valve replaced (09/20/11) Bioprosthetic Aortic Valve History of cardiac cath 09/24/2019 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 Is 1 flight of to the second floor of the house where their bedroom is. Able to stay on the main floor of the house as he recovers. Equipment Owned/DME: Walking stick Subjective: Feels a lot better this morning than he did yesterday. Reports no nausea but felt increasingly queasy during a short in room ambulation from bedside to bedside chair. Reports mild shortness of breath after transfer and short distance ambulation. Objective: General Observation: High flow oxygen supplementation in place. IV access in right ureter. Mental Status: Alert and oriented as to person, place, time, and purpose. Able to pay attention, focus, and respond appropriately. Pain: Denies Vital Signs: At rest has blood pressure of 125/81 mmHg, oxygen saturation of 96% on high flow oxygen, and pulse rate of 101 bpm. After transferring to chair 110/70 mmHg, 96% on high flow rate oxygen supplementation, and 97 bpm for heart ROM: Right Upper Extremity: Shoulder Flexion WFL. Shoulder abduction WFL. Elbow flexion WFL. Wrist flexion WFL. Functional opening and closing of hand WFL. Left Upper Extremity: Shoulder Flexion WFL. Shoulder abduction WFL. Elbow flexion WFL. Wrist flexion WFL. Functional opening and closing of hand WFL. Right Lower Extremity: Hip flexion WFL. Hip abduction WFL. Knee flexion WFL. Ankle dorsiflexion WFL. Ankle plantarflexion WFL. Left Lower Extremity: Hip flexion WFL. Hip abduction WFL. Knee flexion WFL. Ankle dorsiflexion WFL. Ankle plantarflexion WFL. Strength: Right Upper Extremity: Shoulder flexors 4/5. Shoulder abductors 4/5. Elbow flexors 4/5. Elbow extensors 4/5. Certified Pharmacy Technician strong. Left Upper Extremity: Shoulder flexors 4/5. Shoulder abductors 4/5. Elbow flexors 4/5. Elbow extensors 4/5. Certified Pharmacy Technician strong. Right Lower Extremity: Hip flexors 4/5. Hip abductors 4/5. Knee flexors 4/5. Knee extensors 4/5. Ankle dorsiflexors 4/5. Ankle plantarflexors 4/5. Left Lower Extremity: Hip flexors 4/5. Hip abductors 4/5. Knee flexors 4/5. Knee extensors 4/5. Ankle dorsiflexors 4/5. Ankle plantarflexors 4/5. Bed Mobility/Transfers: Supine to sit standby assist with HOB at 45 degrees Sit to stand standby assist Stand to sit standby assist Bed to reclining chair standby assist Gait: Instructed patient with short distance in room level surface ambulation of 12 feet requiring contact-guard assist. Monika decreased. Complained of being moderately queasy after activity that did not resolve right away. Blood pressure of 130/82 mmHg, oxygen saturation of 97% on high flow rate, and heart rate of 109 bpm after activity. Balance: Static Sitting: Normal Dynamic Sitting: Normal Static Standing: Fair Dynamic Standing: Fair Special Tests: Mobility Limitations Standardized Measure [facility] AM-PAC 6 clicks Basic Mobility Inpatient Short Form: Raw Score: 21 CMS Score: 29% deficit Informed Consent/Education: Patient was instructed in purpose of PT consult and plan of care. Agreeable to proceed with established PT POC to achieve personal goals. Assessment: Maximilian reports using front wheel walker for all mobility ADL performance to reduce fall risk and maximize energy consumption. Patient presents with clinical signs and symptoms consistent with current/admitting diagnoses that have resulted to mobility limitations, gait instability, generalized weakness, and overall ADL decline as demonstrated by the following impairment level findings: 1. Decreased strength to BUE/LE [] major muscle groups 2. Impaired standing balance 3. Impaired activity tolerance 4. Shortness of breath 5. Nausea/queasiness Impairments are contributing to the following functional limitations: 1. Decline in bed mobility skills 2. Decline in transfer skills 3. Difficulty with ambulation without assistive device and physical assistance 4. Increased completion time for mobility ADL performance 5. Increased risk for falls 6. Difficulty with managing steps alone safely Patient is assessed as a [id number] moderate complexity based on the following: History: 80-year-old male with past medical history as indicated above Examination: Demonstrable impairment in strength, balance, and mobility level with underlying impairments and functional limitations as exhibited above as well as deficit score of 29% utilizing the [facility] Mobility Inpatient Short Form Presentation: Evolving Decision Makin moderate complexity Goals: Goals X1 week 1. Supine-Sit independent 2. Sit-Supine independent 3. Sit-Stand independent 4. Stand-Sit independent with single-point cane 5. Bed-Chair independent with single-point cane 6. Chair-Bed independent with single-point cane single-point cane 7. Independent gait on level surface with use of for at least 100 feet without report of pain nor dyspnea 8. Independent stair negotiation while holding onto B rails for at least 10 steps without report of pain nor dyspnea 9. Independent with home exercise program 10. Good static and dynamic standing balance/tolerance Plan of Care/Treatment Plan: 1-2x/day, 7 days/week x 1 week. Plan of care has been reviewed with the THIRD GRADE TEACHER providing the service under Physical Therapy direction. Initiate Physical Therapy intervention for pain management as needed, strengthening, bed mobility, transfers, gait, stairs, balance training, and use of assistive device. DISCHARGE RECOMMENDATIONS: Patient will benefit from home health PT services in order to progress mobility level using least restrictive assistive ambulatory device, assess home safety, identify additional equipment needs, and establish a functional maintenance program that will increase ability of patient to remain at home. TREATMENT CODE/TIME: 9716 2 x 25 minutes beginning at 9:32 AM. Thank you for the opportunity to participate in the care of this patient. Ilda Sevilla PT, DPT, CLT [facility] [place], [place]
[2021-06-11 10:02] LABS: ALT 139 U/L (16-63); AST 113 U/L (15-37); Albumin 2.5 g/dL (3.4-5.0); Alkaline Phosphatase 140 U/L (46-116); Bilirubin, Direct 1.5 mg/dL (0.0-0.2); Bilirubin, Total 2.5 mg/dL (0.2-1.0); Total Protein 6.4 g/dL (6.4-8.2)
[2021-06-11] MEDS: CEFEPIME 2 GM in Normal Saline 100 ML IVPB ×2 (10:19→21:10)
--- NOTE | 2021-06-11 13:30 | DI.US_ITS ---
APPROVED REPORT EXAM: Comprehensive 2D, Doppler, and color-flow Echocardiogram Patient Location: In-Patient Room/Bed: [facility] Tailer Out: Regina Fam RDCS (AE) Indications: PE, SOB Echo Enhancing Agent Indication: Rule out Shunt Agent(s) / Amount(s) Used: Agitated Saline 30.0 cc Comments: Contrast study was performed with 3 IV injections of 10ccs of agitated normal saline, at [facility], with cough and post valsalva maneuver. Negative contrast study for shunt flow. Conclusion Study limited to review of agitated saline injection to exclude intracardiac shunt No shunt was identified Left ventricular systolic function appears hyperdynamic Wall motion
--- NOTE | 2021-06-11 16:01 | PT.INTREAT ---
Date of service: 06/11/21 Time of Service: 15:27 PT Notes Visit Reasons: Shortness of breath Inpatient Physical Therapy Treatment Note [facility] Date: 06/11/2021 PRECAUTIONS: Fall, SOB SUBJECTIVE: Maximilian states that he is feeling better this afternoon. He is pleasant and agreeable to participating in PT. OBJECTIVE: PAIN: No c/o pain BED MOBILITY/TRANSFERS Supine-sit: S Sit-supine: I with HOB flat Sit-stand: SBA Stand-sit: SBA Bed-Chair: SBA GAIT: Assistive Device: FWW Weight bearing: Full Assist: SBA Distance: ~50' Deviation: Increased fatigue, mild SOB on 6L O2 THEREX: Patient was instructed in a LE and core strengthening program, completed in a supine position, as per flow sheet. ASSESSMENT: Patient tolerated session well with minimal complaint of increased fatigue and SOB with gait training. He was able to tolerate the addition of ther ex for LE and core strengthening, well today. PLAN: Continue with global strengthening and general conditioning for improved activity tolerance and mobility. TREATMENT CODE/TIME: 23 minutes; 26773, [id number] (15:27)
[2021-06-11] MEDS: Ondansetron 4 MG/2 ML VIAL IVP (16:17)
--- NOTE | 2021-06-11 16:36 | W.PM.PROGNOT ---
Date of Service Date of service: 06/11/21 Time of Service: 16:36 Assessment and Plan Assessment and plan (1) CAP (community acquired pneumonia): Start date: 06/11/21 Start time: 16:51 Status: Acute Assessment and plan: day 4 azithromycin cefepime day 2 white count improving pulmonary toileting covid x2 negative. Dr. Fox recommend liver panel and echo with bubble study d/t platypenia, pt LFT elevated, bilirubin elevated, alk phos elevated. also he cpap and diuresis for severe PHTN. Patient echo with bubble study negative for shunting. Hold statin and acetaminophen CT chest, abd, pelvis with contrast pending. (2) Vomiting: Start date: 06/11/21 Start time: 16:53 Status: Resolved Assessment and plan: He has not vomited today. Normal diet. (3) Atrial fibrillation: Start date: 06/11/21 Start time: 16:56 Status: Chronic Assessment and plan: rate controlled continue home medication anticoagulated Qualifiers: Atrial fibrillation type: paroxysmal Qualified Code(s): I48.0 - Paroxysmal atrial fibrillation (4) Diastolic heart failure: Start date: 06/11/21 Start time: 16:56 Status: Acute Assessment and plan: will check echo Echo reveals EF 57% with pulmonary artery systolic pressure 55%, continue diuresis BID monitor I&O and weights. discussed with Dr Steele Qualifiers: Heart failure chronicity: chronic Qualified Code(s): I50.32 - Chronic diastolic (congestive) heart failure (5) DVT prophylaxis: Start date: 06/11/21 Start time: 17:01 Status: Acute Assessment and plan: eliquis (6) Discharge planning issues: Start date: 06/11/21 Start time: 17:01 Status: Acute Assessment and plan: Home when medically ready. Discussed with Dr. steele Subjective Subjective Patient reports: shortness of breath Interval history since last seen: Patient has worsening SOB with sitting up then lying down, seen by dr. Aragon, liver panel ordered, AST/ALT are elevated, along alk phos and bilirubin. Echo reveals no shunting from bubble study. Severe pulmonary HTN, on cpap and lasix BID. Patient states he has had to have his lungs drained twice in the past with at least a Liter taken from each side on both occasions not revealed on imaging. will hold statin due to liver enzymes and obtain CT ob chest abd pelvis. At this time he is comfortable. Exam Const General: cooperative, healthy appearing, comfortable and no acute distress Nutritional Appearance: average body habitus Orientation: alert, awake and oriented x3 HENMT Head: normal to inspection, normocephalic and atraumatic Mouth: oral mucosae normal Neck Neck: no JVD Resp Effort & Inspection: able to speak in complete sentences and other (platypenia) Auscultation: rhonchi upper bilaterally and lower bilaterally Cardio Rate: regular rate Rhythm: abnormal rhythm (afib) irregularly irregular GI Palpation: soft and nontender Percussion: tympanic to percussion Auscultation: hyperactive bowel sounds Skin Lesions: no lesions Rashes: no rashes Neuro General: patient alert, patient awake, patient oriented x3, tone normal, moves all extremities and no focal motor deficits Extrem General: no pedal edema Psych Appearance: grossly normal Mental Status: mental status grossly normal Speech and Movement: speech and movement normal Mood: congruent mood Affect: normal affect Objective Last Vital Signs Temp 37.5 C 06/11/21 15:53 Pulse 101 H 06/11/21 15:53 Resp 24 06/11/21 15:53 BP 156/79 H 06/11/21 15:53 Pulse Ox 92 06/11/21 15:53 Laboratory Results - last 24 hr 06/11/21 06/11/21 08:00 08:00 WBC 14.89 H RBC 3.51 L Hgb 10.8 L Hct 32.2 L MCV 91.7 MCH 30.8 MCHC 33.5 RDW 13.3 Plt Count 294 MPV 10.9 Immature Gran % 0.9 Neutrophils % 87.5 Lymphocytes % 3.5 Monocytes % 7.9 Eosinophils % 0.1 Basophils % 0.1 Nucleated RBC % 0 Absolute Neutrophils 13.03 H Absolute Lymphocytes 0.52 L Absolute Monocytes 1.18 H Absolute Eosinophils 0.01 Absolute Basophils 0.01 Total Bilirubin 2.5 H Conjugated Bilirubin 1.5 H AST 113 H ALT 139 H Alkaline Phosphatase 140 H Total Protein 6.4 Albumin 2.5 L
--- NOTE | 2021-06-11 17:14 | CMPROGNOTE_ITS ---
- If Service Date Differs Date of service: 06/11/21 Time of Service: 17:14 Care Management Progress Note S/O: Maximilian continues to be closely monitored and treated. He was sitting up in his chair, utilizing his CPAP, he reported he was still experiencing some intermittent nausea and was holding an emesis bag, but overall feeling better. CM continues to follow. A: 80 year old admitted to [facility] 06/07/21 for SOB P: Maximilian will return home when ready per MD, he will follow up with his PCP an d plan of care as prescribed. He will transport via private vehicle with his , Priyanka
--- NOTE | 2021-06-11 18:16 | RESPIRATORY ---
Pt has been on CPAP intermittently throughout the day. He does well for a short time off of it, but then has increased O2 needs up to 8L. Please encourage use of CPAP throughout tonight and return to it after meals/medications. Pt will be reassessed in the morning.
[2021-06-11] MEDS: Omnipaque 350 MG/ML 100 ML BTL IJ (20:37)
[2021-06-11] MEDS: Normal Saline - Diluent 50 ML VIAL IV (20:38)
--- NOTE | 2021-06-11 21:04 | DI.VRAD_ITS ---
PROCEDURE INFORMATION: Exam: CT Chest With Contrast; Diagnostic Exam date and time: 06/11/2021 4:45 PM Age: 80 years old Clinical indication: Other: Elevated enzymes, SOB with sitting up TECHNIQUE: Imaging protocol: Diagnostic computed tomography of the chest with contrast. 3D rendering (Not supervised by radiologist): MIP and/or 3D reconstructed images were created by the technologist. Radiation optimization: All CT scans at this facility use at least one of these dose optimization techniques: automated exposure control; mA and/or kV adjustment per patient size (includes targeted exams where dose is matched to clinical indication); or iterative reconstruction. Contrast material: OMNIPAQUE 350; Contrast volume: 100 ml; Contrast route: INTRAVENOUS (IV); COMPARISON: CT CHEST PE CTA 06/07/2021 7:53 PM FINDINGS: Lungs: Interval development of diffuse airspace opacities in a central distribution throughout the bilateral upper lobes and in the superior segment of the bilateral lower lobes. Mild increase in the volume of the small bilateral layering pleural effusions with adjacent bilateral lower lobe atelectasis. Pleural spaces: See Lungs finding. Heart: Postoperative changes of CABG and aortic valve replacement. Dense mitral annular calcifications and biatrial enlargement of the heart. Aorta: Unremarkable. No aortic aneurysm. Lymph nodes: Stable enlarged mediastinal and bilateral hilar lymph nodes. Largest precarinal lymph node measures 1.8 cm in short axis dimension. Diaphragm: Small hiatal hernia. Bones/joints: Median sternotomy wires and right humeral head suture anchors. Loose bodies in the left shoulder joint. Soft tissues: Unremarkable. IMPRESSION: 1. Worsening pulmonary edema and congestive heart failure. Mild increase in the volume of the small bilateral pleural effusions and adjacent subsegmental atelectasis. Superimposed atypical pneumonia cannot be excluded. 2. Postoperative changes of CABG and aortic valve replacement. 3. Persistent mediastinal reactive lymphadenopathy. PROCEDURE INFORMATION: Exam: CT Abdomen And Pelvis With Contrast Exam date and time: 06/11/2021 4:45 PM Age: 80 years old Clinical indication: Other: Elevated enzymes, SOB with sitting up TECHNIQUE: Imaging protocol: Computed tomography of the abdomen and pelvis with contrast. 3D rendering (Not supervised by radiologist): MIP and/or 3D reconstructed images were created by the technologist. Radiation optimization: All CT scans at this facility use at least one of these dose optimization techniques: automated exposure control; mA and/or kV adjustment per patient size (includes targeted exams where dose is matched to clinical indication); or iterative reconstruction. Contrast material: OMNIPAQUE 350; Contrast volume: 100 ml; Contrast route: INTRAVENOUS (IV); COMPARISON: CT CHEST PE CTA 06/07/2021 7:53 PM FINDINGS: Liver: A 5 mm cyst in the left liver lobe. Gallbladder and bile ducts: Normal. No calcified stones. No ductal dilation. Pancreas: Normal. No ductal dilation. Spleen: Normal. No splenomegaly. Adrenal glands: Bilateral adrenal gland hyperplasia. Kidneys and ureters: Normal. No hydronephrosis. Stomach and bowel: Sigmoid diverticula without evidence for acute diverticulitis. Appendix: Appendix is normal in caliber. No periappendiceal edema. No findings to suggest acute appendicitis. Intraperitoneal space: Unremarkable. No free air. No significant fluid collection. Vasculature: Unremarkable. No abdominal aortic aneurysm. Lymph nodes: Unremarkable. No enlarged lymph nodes. Urinary bladder: Unremarkable as visualized. Reproductive: Prostate gland enlargement with median lobe hypertrophy. Bones/joints: Multilevel degenerative changes with disc space narrowing and osteophytes in the thoracolumbar junction. Soft tissues: Unremarkable. IMPRESSION: 1. No acute intra-abdominal or pelvic finding. 2. Prostate gland enlargement with median lobe hypertrophy. 3. Sigmoid diverticulosis without evidence for acute diverticulitis. No bowel obstruction. Dictated and Authenticated by: Kina Francois MD. Ordering:TAMAR Enciso MD
[2021-06-11] MEDS: AZITHROMYCIN 250 MG in Normal Saline 250 ML IVPB (22:05)
--- NOTE | 2021-06-11 22:37 | W.PULMCON ---
General Date Of Service Date of service: 06/11/21 Time of Service: 09:00 Reason for Consult: Abnormal chest CT Assessment and Plan Assessment and plan (1) CAP (community acquired pneumonia): Status: Acute (2) Diastolic heart failure: Status: Acute Qualifiers: Heart failure chronicity: chronic Qualified Code(s): I50.32 - Chronic diastolic (congestive) heart failure (3) Pulmonary hypertension: Status: Acute Assessment and plan: This is an 80 yo man with a bioprosthetic valve who clinically appears to be in heart failure. He does not have peripheral edema, however his clinical presentation and findings are consistent with this diagnosis. He does have moderate pulmonary hypertension, which I beleive is a result of volume overload (particularly given the normal size and appearance of the RV). I did recommend LFT's to be drawn given his platypnea, which were elevated, however his bubble study on echo was negative, so his elevated LFT's are likely due to congestive hepatopathy. His respiratory status improves with CPAP and his repeat chest imaging shows a bat wing pattern to the infiltrates suggestive of cardiogenic edema. He also does have a white count and fevers so cannot fully rule out a concomitant infectious pnuemonia so agree with empiric treatment. Heart failure exacerbation - diuresis to -1 to -2L in 24 hours - trend LFT's to assess improvement with diuresis Pulmonary HTN - likely due to above - bubble study negative so unlikely hepatopulmonary - if LFT's do not improve then would need outpatient evaluation of portopulmonary HTN with liver US and measurement of portal pressures Pneumonia - agree with cefepime and azithromycin for now - as he improves and if no bug isolated, can consider changing cefepime to ceftriaxone - will get urine antigens for histo, legionella and s. pneumo History of Present Illness Narrative: This is an 80 yo man with a bioprosthetic heart valve who is admitted for dyspnea and hypoxia with a presumptive diagnosis of pneumonia and volume overload. The patients chest imaging is consistent witha possible infectious process with significant volume overload. He tells me that similar episodes have occurred previously for him and he has been told that these are due to fluid. His echo shows a normal EF, and normal RV size and function but with moderate pulmonary hypertension. This morning his O2 requirements increased and the patient was placed on CPAP. He denies any known liver issues. He has no history of AVMs. He tells me he feels short of breath and can tell when he is hypoxic. He denies a cough. He does state that he feels as though it is easier to breath when he is laying flat vs when he is sitting upright. Review of Systems All systems reviewed & are unremarkable except as noted in HPI and below PFSH Medical History Adenomatous colon polyp (08/21/04) multiple small polyps, hyperplastic and at least one <4mm adenoma; neg 2010 colon Atherosclerosis of [place] coronary artery of [place] heart without angina pectoris (09/20/09) found on cath 2009 for M, valve; last stress ECHO 01/11/12 neg ECHO to Lj 3. Dental prophylaxis Atrial fibrillation Benign neoplasm of colon (08/21/04) multiple small polyps, hyperplastic and at least one <4mm adenoma; neg 2009 colon Benign paroxysmal positional vertigo BPH (benign prostatic hyperplasia) Cervical cord compression with myelopathy (04/01/15) Coronary atherosclerosis of [place] coronary vessel (09/20/09) found on cath 2009 for M, valve; last stress ECHO 01/11/12 neg ECHO to Lj 3. 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 [facility] [place] D[facility] Dr Cruz 10/13/20-shave biopsy done to r/o further SCC 05/06/21 [facility] shave biopsy right medial calf Vision loss of right eye Surgical History cervical diskectomy (07/01/15) anterior with fusion C4-5; [facility] [place] Extraction of cataract (07/28/14) Heart valve replaced (09/20/11) Bioprosthetic Aortic Valve History of cardiac cath 09/24/2019 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 Lung cancer Father , lung ca at age 70. Lung cancer Sister , circulatory problems at age 73. Essential hypertension Anemia Sister No problems noted. Social History Smoking/Tobacco Use Status: Never Smoking risk assessment performed?: Yes Alcohol Intake: current Alcohol Intake frequency: 0-2 drinks per day Alcohol type: wine Drug use: Never Substance use type: does not use Household members: spouse Housing: house Number of Children: 2 number of grandchildren: 2 Communication Needs: Corrective Lenses Education Level: other Details: PHD in Physics Do you need help understanding health information?: Rarely current occupation: retired Physic Professor Pets and animals: No What is your relationship status?: Panel score (0-1 are the most socially isolated patients): 1 What type of physical activity do you participate in: walking and other Duration: 15-30 minutes/day Frequency: 1-2 times per week Seatbelt use: always Working smoke detector in home: Yes Fire extinguisher in home: Yes Carbon monox detector in home: Yes Do you feel safe at home: Yes Do you feel safe in your relationship?: Yes Visit Medication and Allergies Active Medications Generic Name Dose Route Start Last Admin Trade Name Freq PRN Reason Stop Dose Admin Acetaminophen 650 mg 06/07/21 21:52 06/11/21 06:49 Acetaminophen 325 Mg Tab PO 650 mg Q4H PRN PRN Administration Apixaban 5 mg 06/08/21 08:30 06/11/21 21:10 Apixaban 5 Mg Tab PO 5 mg BID BRONWYN Administration Aspirin 81 mg 06/08/21 08:30 06/11/21 08:21 Aspirin E.C. 81 Mg Tabec PO 81 mg DAILY BRONWYN Administration Atorvastatin Calcium 40 mg 06/07/21 22:00 06/10/21 21:28 Atorvastatin 40 Mg Tab PO 40 mg HS BRONWYN Administration Diltiazem HCl 360 mg 06/08/21 08:30 06/11/21 08:21 Diltiazem Cd 180 Mg Capcr PO 360 mg QAM BRONWYN Administration Dimethicone/Zinc Oxide 0 gm 06/07/21 21:47 Jhoana Protect Cream 142 Gm Tube TP PRN PRN Furosemide 40 mg 06/11/21 16:00 06/11/21 16:16 Furosemide 40 Mg/4 Ml Vial IVP 40 mg BID@0800,1600 BRONWYN Administration Guaifenesin 600 mg 06/09/21 09:30 06/11/21 21:10 Guaifenesin 600 Mg Tabcr PO 600 mg BID BRONWYN Administration Azithromycin 250 mg/ Sodium 250 mls @ 250 mls/hr 06/08/21 22:00 06/11/21 22:05 Chloride IVPB 250 mls/hr Q24H BRONWYN Administration Cefepime HCl 2 gm/ Sodium 100 mls @ 200 mls/hr 06/09/21 10:00 06/11/21 21:10 Chloride IVPB 200 mls/hr Q12H BRONWYN Administration IV Miscellaneous Supplies 1 each 06/07/21 19:00 Iv Access IV DIRECTED BRONWYN Iohexol 100 ml 06/11/21 20:45 06/11/21 20:37 Omnipaque 350 Mg/Ml 100 Ml Btl IJ 07/11/21 23:59 100 ml DIRECTED BRONWYN Administration Melatonin 3 - 6 mg 06/07/21 21:52 06/07/21 23:50 Melatonin 3 Mg Tab PO 6 mg HS PRN Administration Metoprolol Tartrate 25 mg 06/10/21 20:00 06/11/21 21:10 Metoprolol 25 Mg Tab PO 25 mg BID BRONWYN Administration Ondansetron HCl 4 mg 06/11/21 14:47 06/11/21 16:17 Ondansetron 4 Mg/2 Ml Vial IVP 4 mg Q4H PRN PRN Administration Potassium Chloride 20 meq 06/10/21 12:00 06/11/21 16:16 Potassium Chloride 20 Meq Tabcr PO 20 meq QMEALS BRONWYN Administration Prochlorperazine Maleate 5 mg 06/11/21 14:47 Prochlorperazine 5 Mg Tab PO Q6H PRN PRN Sodium Chloride 0 ml 06/07/21 18:49 10/22/21 20:38 Normal Saline Flush 10 Ml Syr IVP 10 ml PRN PRN Administration Sodium Chloride 50 ml 06/11/21 20:45 06/11/21 20:38 Normal Saline - Diluent 50 Ml Vial IV 50 ml .FOR DI USE BRONWYN Administration Tamsulosin HCl 0.8 mg 06/08/21 08:30 06/11/21 08:20 Tamsulosin 0.4 Mg Capcr PO 0.8 mg DAILY BRONWYN Administration Trimethobenzamide HCl 300 mg 06/08/21 16:08 06/09/21 16:28 Trimethobenzamide 300 Mg Capsule PO 300 mg TID PRN PRN Administration Allergies No Known Allergies Allergy (Verified 05/03/21 11:24) Exam Narrative Exam Narrative: O2 sat while sitting on 6L nc is 91%, when laying flat O2 sat is 93% Const General: no acute distress Nutritional Appearance: well nourished [facility] Head: normocephalic Ears: external ears normal and no periauricular adenopathy General nose exam: nasal mucous membranes and turbinates normal Face and sinus: sinuses nontender Mouth: oropharynx normal and moist mucous membranes Teeth and gingiva: dentition normal Eyes General: appearance normal, both eyes and all related structures Pupils: PERRL Neck Neck: normal visual inspection and no lymphadenopathy Chest Chest: normal inspection of the chest Resp Effort & Inspection: normal respiratory effort Auscultation: clear to auscultation bilaterally, rales, no rhonchi and no wheezes Cardio Rate: regular rate Rhythm: regular rhythm Heart Sounds: S1 normal, S2 normal and no murmurs Pulses: radial pulses present bilaterally GI Inspection: normal to inspection Palpation: soft Skin General skin exam: no rashes or lesions noted Neuro General: patient alert, patient awake and patient oriented x3 Extrem General: no clubbing, cyanosis or edema Psych Mental Status: mental status grossly normal Affect: normal affect Attitude: cooperative Results Last Vital Signs Temp 37.5 C 06/11/21 15:53 Pulse 91 H 06/11/21 18:14 Resp 23 06/11/21 18:14 BP 156/79 H 06/11/21 15:53 Pulse Ox 95 06/11/21 18:14 Labs Result diagrams: 06/11/21 08:00 06/10/21 07:09 Labs: Laboratory Results - last 24 hr 06/11/21 06/11/21 08:00 08:00 WBC 14.89 H RBC 3.51 L Hgb 10.8 L Hct 32.2 L MCV 91.7 MCH 30.8 MCHC 33.5 RDW 13.3 Plt Count 294 MPV 10.9 Immature Gran % 0.9 Neutrophils % 87.5 Lymphocytes % 3.5 Monocytes % 7.9 Eosinophils % 0.1 Basophils % 0.1 Nucleated RBC % 0 Absolute Neutrophils 13.03 H Absolute Lymphocytes 0.52 L Absolute Monocytes 1.18 H Absolute Eosinophils 0.01 Absolute Basophils 0.01 Total Bilirubin 2.5 H Conjugated Bilirubin 1.5 H AST 113 H ALT 139 H Alkaline Phosphatase 140 H Total Protein 6.4 Albumin 2.5 L
--- NOTE | 2021-06-12 01:32 | NUR.NOTE ---
Addendum entered by Franko Briggs 06/12/21 01:34: Charge Nurse made aware Original Note: @22:00 this RN placed CPAP machine on patient sating 94%. at 2225 patient called and stated that this machine was uncomfortable making him have a hard time breathing and jaw spasms, cpap removed and he was placed on 6L of nasal cannula sating at 92%
--- NOTE | 2021-06-12 04:49 | RESPIRATORY ---
Pt unable to tolerate CPAP due to jaw pain/spasms. Only on CPAP of 6. Renu removed from pt room due to increasing intolerance throughout day. Pt agreeable with plan.
[2021-06-12 07:30] VITALS: BP 148/75; PULSE 110; RESP 20; TEMP 37.4; O2SAT 89
[2021-06-12 07:46] LABS: Abs Immature Grans 0.15 10^3/uL (0.0-0.06); Absolute Basophil Count 0.02 10^3/uL (0.0-0.2); Absolute Lymphocyte Count 0.96 10^3/uL (1.2-3.4); Absolute Monocyte Count 1.58 10^3/uL (0.1-0.8); Absolute Neutrophil Count 15.04 10^3/uL (1.2-6.7); Basophils % 0.1; Eosinophils % 0.2; HCT 31.8 % (40.0-50.0); HGB 10.8 g/dL (13.5-17.5); Immature Grans % 0.8; Lymphocytes % 5.4; MCH 30.5 pg (27.0-33.0); MCV 89.8 fL (80-95); MPV 11.1 fL (8.0-11.0); Monocytes % 8.9; Neutrophils % 84.6; Nucleated RBC 0 %; Platelet Count 330 10^3/uL (130-400); RBC 3.54 10^6/uL (4.36-5.78); RDW 13.4 % (11.8-14.1); RDW-SD 44.4 fL; WBC 17.78 10^3/uL (4.4-10.8)
[2021-06-12 07:56] LABS: Absolute Eosinophil Count 0.04 10^3/uL (0.0-0.7)
[2021-06-12 08:05] LABS: ALT 206 U/L (16-63); AST 159 U/L (15-37); Albumin 2.4 g/dL (3.4-5.0); Alkaline Phosphatase 159 U/L (46-116); Anion Gap 8.6 mmol/L (3-11); BUN 34 mg/dL (7-18); Bilirubin, Total 2.5 mg/dL (0.2-1.0); CO2 27.4 mmol/L (21.0-32.0); CREATININE 1.2 mg/dL (0.70-1.30); Calcium 8.9 mg/dL (8.5-10.1); Chloride 101 mmol/L (98-107); Estimated GFR 58.11 (mL/min/1.73m2); Glucose 129 mg/dL (74-106); NT-proBNP 3190 pg/mL (<300); Sodium 137 mmol/L (136-145); Total Protein 7.3 g/dL (6.4-8.2)
[2021-06-12 08:14] LABS: C-Reactive Protein > 25.00 mg/dL (0.0-0.3)
[2021-06-12 08:17] LABS: Procalcitonin 0.5 ng/mL
[2021-06-12] MEDS: Furosemide 40 MG/4 ML VIAL IVP (08:26)
[2021-06-12] MEDS: Apixaban 5 MG TAB PO (08:27)
[2021-06-12] MEDS: dilTIAZem CD 180 MG CAPCR 360 MG PO (08:27)
[2021-06-12] MEDS: Potassium Chloride 20 MEQ TABCR PO (08:27)
[2021-06-12] MEDS: Normal Saline Flush 10 ML SYR IVP ×4 (08:27→21:36)
[2021-06-12] MEDS: Tamsulosin 0.4 MG CAPCR 0.8 MG PO (08:27)
[2021-06-12] MEDS: Aspirin E.C. 81 MG TABEC PO (08:27)
[2021-06-12] MEDS: Metoprolol 25 MG TAB PO (08:27)
[2021-06-12] MEDS: guaiFENesin 600 MG TABCR PO (08:27)
[2021-06-12 09:41] LABS: Creatine Kinase 91 U/L (39-308)
[2021-06-12 09:54] LABS: Acetaminophen < 2 ug/mL (10-30)
--- NOTE | 2021-06-12 10:12 | PT.INNT ---
Date of service: 06/12/21 Time of Service: 10:12 PT Notes Visit Reasons: Shortness of breath 06/12/2021 Hold PT today due to increasing supplemental O2 needs and significant SOB with all activity. Will attempt to resume PT services tomorrow morning, if appropriate.
[2021-06-12 10:58] LABS: Bilirubin Negative (Negative); Blood Small (Negative); Clarity Clear (Clear); Glucose Negative (Negative); Ketones Negative (Negative); Leukocyte Esterase Negative (Negative); Nitrite Negative (Negative); Specific Gravity 1.015 (1.005-1.025); Urobilinogen 0.2 EU/dL (Up TO 0.2); pH 5.5 (5-8)
[2021-06-12 11:08] LABS: Bacteria Negative HPF (Negative); C & S Indicated? No; Casts 0-2 Fine Granular LPF (Negative); Crystals Negative HPF (Negative); Epithelial Cells Rare HPF (Negative); Mucus Negative (Negative); WBC Negative HPF (0-5)
--- NOTE | 2021-06-12 11:46 | PGE_ITS ---
Date of Service Date of service: 06/12/21 Time of Service: 11:46 Assessment and Plan Assessment and plan (1) Comfort measures only status: Start date: 06/12/21 Start time: 11:46 Status: Acute Assessment and plan: Patient is getting worse. CT revealing Worsening pulmonary edema and congestive heart failure. Mild increase in the volume of the small bilateral pleural effusions and adjacent subsegmental atelectasis. Superimposed atypical pneumonia cannot be excluded. He also have worsening liver enzymes, CRP is greater than 25 and procal is 0.5, he along with his has decided he would like to be made comfort measures. At this time he states he is in a lot of pain and it is hard for him to breath. His daughter is on her way up from [place]. He is on oral medications at this time, palliative consult placed. He does not want to go home on hospice, he would like to stay here and pass away in the hospital. Once on a drip it likely will not take long. (2) Pulmonary hypertension: Start date: 06/12/21 Start time: 11:46 Status: Acute Assessment and plan: as above (3) Diastolic heart failure: Start date: 06/12/21 Start time: 11:46 Status: Acute Assessment and plan: worsening, no shunting per bubble study hepato involvement, has decided to go comfort as above Qualifiers: Heart failure chronicity: chronic Qualified Code(s): I50.32 - Chronic diastolic (congestive) heart failure (4) Transaminitis: Start date: 06/12/21 Start time: 11:46 Status: Acute Assessment and plan: worsening LFT as above discussed with Dr. Ramirez Subjective Subjective Patient reports: still having pain Interval history since last seen: Patient has decided to go comfort measures. He realizes that he is dying and does not want any further efforts. I spoke with his . She wants to tiarra his wishes. She agrees with the plan. He does not want to go home on hospice he would like to stay here and pass away. He has a daughter that lives in [place] that is on her way up. For now will give oral medications so he is responsive until she arrives. Once daughter arrives discussed with about placing on morphine drip, he is agreeable to this. He states he is in alot of pain and is suffering with breathing. Will keep oxygen for comfort at this time. l Exam Narrative Exam Narrative: Patient laying in bed, he looks serverly SOB, He states he knows he is very sick and he knows he is dying and he made a decision when he came in that if this was they way he wanted to go. He is pale. Grateful to be made Comfortable as he states he has pain and he can not breath well. Will treat with orals for now. Irregular HR. Abd soft non tender. no clubbing or cyanosis to extremities will place gao. Objective Last Vital Signs Temp 37.4 C 06/12/21 07:30 Pulse 110 H 06/12/21 07:30 Resp 20 06/12/21 07:30 BP 148/75 H 06/12/21 07:30 Pulse Ox 89 L 06/12/21 07:30 Laboratory Results - last 24 hr 06/12/21 06/12/21 06/12/21 07:00 07:00 07:00 WBC RBC Hgb Hct MCV MCH MCHC RDW Plt Count MPV Immature Gran % Neutrophils % Lymphocytes % Monocytes % Eosinophils % Basophils % Nucleated RBC % Absolute Neutrophils Absolute Lymphocytes Absolute Monocytes Absolute Eosinophils Absolute Basophils Sodium 137 Potassium 4.0 D Chloride 101 Carbon Dioxide 27.4 Anion Gap 8.6 BUN 34 H Creatinine 1.2 Estimated GFR/1.73 m2 58.11 Glucose 129 H Calcium 8.9 Total Bilirubin 2.5 H AST 159 H ALT 206 H Alkaline Phosphatase 159 H Creatine Kinase 91 C-Reactive Protein > 25.00 H NT-Pro-B Natriuret Pep 3190 H Total Protein 7.3 Albumin 2.4 L Procalcitonin 0.5 Urine Color Urine Clarity Urine pH Ur Specific [place] Urine Protein Urine Ketones Urine Blood Urine Nitrite Urine Bilirubin Urine Urobilinogen Ur Leukocyte Esterase Urine RBC Urine WBC Ur Epithelial Cells Urine Crystals Urine Bacteria Urine Casts Urine Mucus Ur Culture Indicated? Urine Glucose Acetaminophen < 2 Hepatitis A IgM Ab Cancelled Hep Bs Antigen Cancelled Hep B Core Total Ab Cancelled Hepatitis C Antibody Cancelled 06/12/21 06/12/21 07:00 10:42 WBC 17.78 H RBC 3.54 L Hgb 10.8 L Hct 31.8 L MCV 89.8 MCH 30.5 MCHC 34.0 RDW 13.4 Plt Count 330 MPV 11.1 H Immature Gran % 0.8 Neutrophils % 84.6 Lymphocytes % 5.4 Monocytes % 8.9 Eosinophils % 0.2 Basophils % 0.1 Nucleated RBC % 0 Absolute Neutrophils 15.04 H Absolute Lymphocytes 0.96 L Absolute Monocytes 1.58 H Absolute Eosinophils 0.04 Absolute Basophils 0.02 Sodium Potassium Chloride Carbon Dioxide Anion Gap BUN Creatinine Estimated GFR/1.73 m2 Glucose Calcium Total Bilirubin AST ALT Alkaline Phosphatase Creatine Kinase C-Reactive Protein NT-Pro-B Natriuret Pep Total Protein Albumin Procalcitonin Urine Color Yellow Urine Clarity Clear Urine pH 5.5 Ur Specific [place] 1.015 Urine Protein 30 H Urine Ketones Negative Urine Blood Small H Urine Nitrite Negative Urine Bilirubin Negative Urine Urobilinogen 0.2 Ur Leukocyte Esterase Negative Urine RBC 3-5 H Urine WBC Negative Ur Epithelial Cells Rare Urine Crystals Negative Urine Bacteria Negative Urine Casts 0-2 Fine Granular Urine Mucus Negative Ur Culture Indicated? No Urine Glucose Negative Acetaminophen Hepatitis A IgM Ab Hep Bs Antigen Hep B Core Total Ab Hepatitis C Antibody
[2021-06-12] MEDS: Scopolamine 1 MG/3 DAYS PATCH TD (12:14)
[2021-06-12] MEDS: LORazepam 2 MG/1 ML Oral Concentrate PO (12:14)
[2021-06-12] MEDS: Ondansetron 4 MG/2 ML VIAL IVP (12:22)
[2021-06-12] MEDS: LORazepam 2 MG/ML VIAL 1 MG IVP ×2 (18:55→21:36)
[2021-06-12] MEDS: Senna TAB PO (21:37)
[2021-06-12 22:09] VITALS: BP 133/71; PULSE 112; RESP 35; TEMP 38.4; O2SAT 85
[2021-06-13] MEDS: MORPHine 2 MG/ML SYR IVP ×10 (00:09→02:45)
[2021-06-13] MEDS: Normal Saline Flush 10 ML SYR IVP ×6 (00:11→08:10)
[2021-06-13] MEDS: LORazepam 2 MG/ML VIAL 1 MG IVP ×3 (00:28→02:31)
[2021-06-13] MEDS: LORazepam 2 MG/ML VIAL IVP ×4 (03:32→12:09)
[2021-06-13 08:04] LABS: Ferritin 650 ng/mL (26-388)
[2021-06-13] MEDS: Glycopyrrolate 0.2 MG/1 ML VIAL IVP (09:06)
--- NOTE | 2021-06-13 14:09 | EXPE_ITS ---
Date of service: 06/13/21 Time of Service: 14:09 Discharge Sum: Prov Provider Primary care physician: Robert Baltazar Admitting clinician: Sunny Banuelos Attending physician on admission: Sunny Banuelos Consults: 06/12/21 09:30 Palliative Care Consult [CONS] Routine Consultation Status:: Follow-up needed Clarification:: Manage/follow per spec. Reason for consult:: Discuss goals of care Pronouncing clinician: Zaria Godwin Discharge Sum: Diag PCOD Cause of : Pulmonary hypertension associated with systemic disorder Contributing Factors (1) Pulmonary hypertension: Contributing factors: CT revealing Worsening pulmonary edema and congestive heart failure. Mild increase in the volume of the small bilateral pleural effusions and adjacent subsegmental atelectasis. Superimposed atypical pneumonia cannot be excluded. He also have worsening liver enzymes, CRP is greater than 25 and procal is 0.5, Echo with pulmonary artery systolic pressure 55 mmHg right arterial pressure 3 mm Hg. (2) Diastolic heart failure: Contributing factors: as above Discharge Sum: Summary Date and Time Admission Date: 06/07/2110/18/21 21:47 Date of : 06/13/21 Time of : 12:33 Summary Details: Patient admitted for SOB. Minimal fever and cough, modest leukocytosis and bilateral lung findings might be c/w simple pneumonia diagnosis. Over course of treatment he was found to have severe pulmonary HTN. Requiring BID dosing of lasix. He also had platypenia. Liver e nzymes ordered and they were high. CRP was over 25. WBC continued to get worse despite antibiotics and procal was 0.5. The next day liver enzymes were worse. Discussed results with patient, by this time he had already made up his mind that he no longer wanted to live like this. He stated that he had decided when he came in the hospital if he was getting worse that he wanted to be made comfortable. He did not want to go home on hospice he wanted to in the hospital on comfort measures. He was made comfortable yesterday on 06/12 with orals until his daughter arrived from [place]. He was then placed on a drip after seeing her. This morning around 1000 he unresponsive. Oxygen was removed. At 1233 he and it was called at 1234. Additional Data Confirmation of as documented by pronouncing clinician: no pulse, no respirations and no heart sounds Family: at bedside Attending/PCP notified?: Yes Attending Physician: Sunny Rivera Was code activated?: No Autopsy requested?: No crime scene examiner notified?: No Organ bank notified?: Yes Advance directives: Yes Hospice patient?: No
[2021-06-14 07:58] LABS: Legionella Ag Detection Urine Negative (Negative)
--- NOTE | 2021-06-14 09:15 | INDS_ITS ---
Date of service: 06/14/21 Time of Service: 09:16 PT Notes Visit Reasons: Shortness of breath Physical Therapy Inpatient Discharge Summary Date: 06/14/2021 Dates of service: 06/09/2021 through 06/12/2021 This is a clinical summary of care provided for the duration of dates listed above. No charge was made in the completion of this documentation. Referring Doctor: Thao Gomes NP PT Orders: PT CONSULT: Eval/treat Precautions: Fall. Standard. Activity as tolerated. Patient Profile/Admitting Diagnosis: Maximilian is an 80-year-old male who presented to the ED on 06/07/2021 due to 2 weeks worth of generalized fatigue, shortness of breath, cough, and loss of taste and smell. COVID-19 negative. Patient is diagnosed with community-acquired pneumonia, vomiting, atrial fibrillation, and diastolic heart failure. PMHX: Medical History Adenomatous colon polyp (08/21/04) multiple small polyps, hyperplastic and at least one <4mm adenoma; neg 2010 colon Atherosclerosis of [place] coronary artery of [place] heart without angina pectoris (09/20/09) found on cath 2009 for M, valve; last stress ECHO 01/11/12 neg ECHO to Lj 3. Dental prophylaxis Atrial fibrillation Benign neoplasm of colon (08/21/04) multiple small polyps, hyperplastic and at least one <4mm adenoma; neg 2009 colon Benign paroxysmal positional vertigo BPH (benign prostatic hyperplasia) Cervical cord compression with myelopathy (04/01/15) Coronary atherosclerosis of [place] coronary vessel (09/20/09) found on cath 2009 for M, valve; last stress ECHO 01/11/12 neg ECHO to Lj 3. 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 [facility] [place] Derm Dr Cruz 10/13/20-shave biopsy done to r/o further SCC 05/06/21 [facility] shave biopsy right medial calf Vision loss of right eye Surgical History [place] (07/01/15) [place] C4-5[place] [facility] [place] (07[place]14) Heart valve replaced (09/20/11) Bioprosthetic Aortic Valve History of cardiac cath 09/24/2019 History of prosthetic aortic valve (09/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 Is 1 flight of to the second floor of the house where their bedroom is. Able to stay on the main floor of the house as he recovers. Equipment Owned/DME: Walking stick Subjective: NT. See most recent [employer] [employer] notes. Objective: General Observation: NT. See most recent [employer] [employer] notes. Mental Status: NT. See most recent [employer] [employer] notes. Pain: NT. See most recent [employer] [employer] notes. Vital Signs: NT. See most recent [employer] [employer] notes. ROM: Right Upper Extremity: Shoulder Flexion WFL. Shoulder abduction WFL. Elbow flexion WFL. Wrist flexion WFL. Functional opening and closing of hand WFL. Left Upper Extremity: Shoulder Flexion WFL. Shoulder abduction WFL. Elbow flexion WFL. Wrist flexion WFL. Functional opening and closing of hand WFL. Right Lower Extremity: Hip flexion WFL. Hip abduction WFL. Knee flexion WFL. Ankle dorsiflexion WFL. Ankle plantarflexion WFL. Left Lower Extremity: Hip flexion WFL. Hip abduction WFL. Knee flexion WFL. Ankle dorsiflexion WFL. Ankle plantarflexion WFL. Strength: Right Upper Extremity: Shoulder flexors 4/5. Shoulder abductors 4/5. Elbow flexors 4/5. Elbow extensors 4/5. Copy Camera Operator strong. Left Upper Extremity: Shoulder flexors 4/5. Shoulder abductors 4/5. Elbow flexors 4/5. Elbow extensors 4/5. Copy Camera Operator strong. Right Lower Extremity: Hip flexors 4/5. Hip abductors 4/5. Knee flexors 4/5. Knee extensors 4/5. Ankle dorsiflexors 4/5. Ankle plantarflexors 4/5. Left Lower Extremity: Hip flexors 4/5. Hip abductors 4/5. Knee flexors 4/5. Knee extensors 4/5. Ankle dorsiflexors 4/5. Ankle plantarflexors 4/5. Bed Mobility/Transfers: Supine to sit standby assist with HOB at 45 degrees Sit to stand standby assist Stand to sit standby assist Bed to reclining chair standby assist Gait: Instructed patient with short distance in room level surface ambulation of 50 feet requiring contact-guard assist. Monika decreased. Complained of being moderately queasy after activity that did not resolve right away. Blood pressure of 130/82 mmHg, oxygen saturation of 97% on high flow rate, and heart rate of 109 bpm after activity. Balance: Static Sitting: Normal Dynamic Sitting: Normal Static Standing: Fair Dynamic Standing: Fair Assessment: Maximilian reports using front wheel walker for all mobility ADL performance to reduce fall risk and maximize energy consumption. Patient presents with clinical signs and symptoms consistent with current/admitting diagnoses that have resulted to mobility limitations, gait instability, generalized weakness, and overall ADL decline as demonstrated by th e following impairment level findings: 1. Decreased strength to BUE/LE [] major muscle groups 2. Impaired standing balance 3. Impaired activity tolerance 4. Shortness of breath 5. Nausea/queasiness Impairments are contributing to the following functional limitations: 1. Decline in bed mobility skills 2. Decline in transfer skills 3. Difficulty with ambulation without assistive device and physical assistance 4. Increased completion time for mobility ADL performance 5. Increased risk for falls 6. Difficulty with managing steps alone safely Goals: Goals X1 week 1. Supine-Sit independent NOT MET 2. Sit-Supine independent NOT MET 3. Sit-Stand independent NOT MET 4. Stand-Sit independent with single-point cane NOT MET 5. Bed-Chair independent with single-point cane NOT MET 6. Chair-Bed independent with single-point cane single-point cane NOT MET 7. Independent gait on level surface with use of for at least 100 feet without report of pain nor dyspnea NOT MET 8. Independent stair negotiation while holding onto B rails for at least 10 steps without report of pain nor dyspnea NOT MET 9. Independent with home exercise program NOT MET 10. Good static and dynamic standing balance/tolerance NOT MET DISCHARGE RECOMMENDATIONS: Patient will benefit from home health PT services in order to progress mobility level using least restrictive assistive ambulatory device, assess home safety, identify additional equipment needs, and establish a functional maintenance program that will increase ability of patient to remain at home. TREATMENT CODE/TIME: CT Thank you for the opportunity to participate in the care of this patient. Ilda Sevilla PT, DPT, CLT [facility] [place], [place]
[2021-06-14 11:36] LABS: HBs Antibody, Qual Negative (See Note); HBs Antibody, Quant <3.1 mIU/mL (See Note); Hepatitis B Core Antibody Negative (Negative); Hepatitis B surface Ag Negative (Negative); Hepatitis C Ab w Rflx HCV PCR Negative (Negative)
[2021-06-14 11:44] LABS: Hep A Total Ab w Rflx IgM Positive (Negative)
[2021-06-14 23:12] LABS: Streptococcus Pneumoniae Ag, U Negative (Negative)
[2021-06-15 17:39] LABS: Hep A Antibody IgM Negative (Negative)
== END 2021-06-13 12:33 | disposition expired | DRG 291 ==
LOC: ER 22:01 → MS 22:42
PROVIDERS: Family Medicine; Nurse Practitioner Acute Care; Nurse Practitioner Family; Student in an Organized Health Care Education/Training Program; Admitting Provider General Practice; Emergency Provider Emergency Medicine; PCP Family Medicine; Visit Provider General Practice
DX: I11.0 Hypertensive heart disease with heart failure (principal); J18.9 Pneumonia, unspecified organism; I50.33 Acute on chronic diastolic (congestive) heart failure; Z51.5 Encounter for palliative care; H34.232 Retinal artery branch occlusion, left eye; Z20.822 Contact with and (suspected) exposure to COVID-19; I25.10 Atherosclerotic heart disease of native coronary artery without angina pectoris; K21.9 Gastro-esophageal reflux disease without esophagitis; E78.5 Hyperlipidemia, unspecified; N40.1 Benign prostatic hyperplasia with lower urinary tract symptoms; H47.011 Ischemic optic neuropathy, right eye; Z95.2 Presence of prosthetic heart valve; I95.1 Orthostatic hypotension; Z98.1 Arthrodesis status; Z96.651 Presence of right artificial knee joint; Z79.01 Long term (current) use of anticoagulants; Z79.82 Long term (current) use of aspirin; I48.0 Paroxysmal atrial fibrillation; R11.10 Vomiting, unspecified; I27.20 Pulmonary hypertension, unspecified; R74.01 Elevation of levels of liver transaminase levels; K76.1 Chronic passive congestion of liver
CPT/HCPCS: 36410; 36415; 71275; 74177; 80048; 80053; 80076; 82550; 82805; 84145; 86704; 86706; 86709; 86803; 87040; 87340; 87449; 87635; 93005; 93308; 96365; 96367; 96375; 97110; 97162; 97530; 99285; 71046; 71260; 74022; 80329; 81003; 81015; 82728; 83735; 83880; 84443; 84484; 85025; 85610; 85730; 86140; 87385; 87899; 93010; 93306; 94660; 94760; 99222; 99232; 99233; 99238; J0456; J0696; J1940; J1941; J2060; J2270; J2405; J3490